=== PATIENT | male | born 1955 | race Caucasian/White ===

== ENCOUNTER → 2019-10-06 | Outpatient (CLI) | payer OTHER ==
--- NOTE | 2019-10-06 10:28 | MR ---
EXAMINATION TYPE: MR brain wo/w con DATE OF EXAM: 10/06/2019 COMPARISON: None HISTORY: altered mental status TECHNIQUE: Multiplanar, multisequence images of the brain and brainstem is performed without and with IV contras t, utilizing 11.5 mL intravenous Gadavist . FINDINGS: Multiple foci of abnormal signal are present within the brain including the largest lesion in the left occipital lobe measuring 5.7 x 3.4 x 3.4 cm with mixed signal noted precontrast including areas of increased signal which could be due to some minimal underlying hemorrhage. There is extensi ve enhancement following contrast administration, smaller lesions are present in the left and right p arietal lobes measuring approximately 2.1 cm on the left, 2.1 cm on the right also showing extensive heterogeneous enhancement. There is vasogenic edema present associated with all 3 lesions. Mass effec t is present on the left lateral ventricle. There is mild midline shift present from left to right. Some mucosal disease present within the maxillary sinus. Scattered hyperintensities on inversion valerie very T2-weighted sequences within the white matter, approximately 4-5 lesions are indeterminate. IMPRESSION: Metastatic disease as described. A Yellow level critical message alert has been initiated for Feliz Henriquez MD via the [employer] on 10/06/2019 10:25 AM. This message alert has been sent to Feliz Henriquez MD via t he preferences provided by the clinician for the receipt of Radiology Critical Findings. Message ID [id number].
== END | disposition home or self-care (01) ==
LOC: RADMRIMAIN 08:32
PROVIDERS: ATTEND Internal Medicine Hematology & Oncology
DX: C79.31 Secondary malignant neoplasm of brain (principal)
CPT/HCPCS: 70553; A9585

== ENCOUNTER → 2019-10-16 | Outpatient (CLI) | payer OTHER ==
--- NOTE | 2019-10-19 10:36 | PE ---
EXAMINATION TYPE: PET CT fusion skull to thigh DATE OF EXAM: 10/16/2019 COMPARISON: NONE HISTORY: Melanoma initial staging study diagnosed on collarbone biopsy in 2014. Recent abnormal jd e with suspected brain metastatic lesion. TECHNIQUE: Following the intravenous administration of 11.84 mCi of F-18 FDG, whole body images are performed from the top of skull to the bottom of feet. Images are reviewed on the computer in the co pramod, axial, and sagittal planes. Reconstructed rotating images are created on independent workstat ion and reviewed on the computer. A noncontrast CT is performed in conjunction with the PET scan. SCAN: Subsequent Scan FINDINGS: HEAD AND NECK: Areas of diminished uptake left parietal and occipital levels presumed correspond to areas of metastatic neoplasm due to vasogenic edema. No suspicious hypermetabolic soft tissue nodules in the scalp or neck identified. CHEST, MEDIASTINUM, AND HILAR REGION: No areas of suspicious hypermetabolic uptake in the thorax with particular attention to the clavicles and supraclavicular region. ABDOMEN AND PELVIS: Normal excretion is present. There is focus of abnormal hypermetabolic uptake in the left groin but this corresponds to moderate size left inguinal hernia containing portion of bladd er or diverticulum with some dependent bladder calculi. No additional areas of suspicious hypermetabo lic uptake. OSSEOUS STRUCTURES: No areas of suspicious hypermetabolic uptake. EXTREMITIES: No areas of suspicious hypermetabolic uptake. OTHER CT: Additional areas of hypodensity or vasogenic edema on CT less well seen on pet imaging bett er seen on recent MRI. There is right internal jugular Mediport catheter terminating in right internal jugular vein before b rachiocephalic confluence. Heart size upper limits of normal. Surgical changes anterior right abdominal wall axial image 238 are present. There is equal filled pro minent sigmoid colon near the suspected sutures axial image 256. No normal appearing left ureter chacon sverse colon. No suspicious small bowel dilatation. Metallic artifact from bilateral hip arthroplasty causes streak artifact limiting evaluation of pelvi c structures. There is additional metallic hardware from left knee arthroplasty causing streak artifa ct. Asymmetric atrophy of posterior medial left mid to lower femoral muscle extending to level of kne e joint. IMPRESSION: No suspicious hypermetabolic lesions to suggest additional areas of metastatic melanoma i nvolvement outside of the lesions seen in brain best visualized on recent brain MRI.
== END | disposition home or self-care (01) ==
LOC: RADPETMAIN 15:09
PROVIDERS: ATTEND Internal Medicine Hematology & Oncology
DX: C43.8 Malignant melanoma of overlapping sites of skin (principal)
CPT/HCPCS: 78815; A9552

== ENCOUNTER 2019-11-17 12:28 | Emergency (ER) | payer OTHER ==
[2019-11-17 12:31] LABS: Glucose,Whole Blood 104 mg/dL (75-99)
[2019-11-17] MEDS ORDERED: SODIUM CHLORIDE 0.9% 500 ML 500 ML IV STA (12:35)
--- NOTE | 2019-11-17 12:54 | ED ---
General Adult HPI - General Chief complaint: Altered Mental Status Stated complaint: Altered mental status Time Seen by Provider: 11/17/19 12:30 Source: patient, family, RN notes reviewed, old records reviewed Mode of arrival: wheelchair Limitations: altered mental status - History of Present Illness Initial comments: This is a 64-year-old male who presents emergency department after having passed out in the MRI waiting room. 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 Patient also has a history of a significant GI bleed about 2 or 3 weeks ago. states on Saturday he started having some altered status and a progressive throughout the week and today he was here to get another MRI of his brain and he passed out in the waiting room. Patient currently is only able to follow some simple commands so is not getting any further history. Patient's states that he was significantly confused this morning when he woke up but she wanted to get the MRI done so she brought him in to be evaluated. states that the patient does appear considerably more pale than normal. Patient recently stopped steroids according to the she believes it was on Saturday when he stopped - Related Data Home Medications Medication Instructions Recorded Confirmed Dexamethasone 2 mg PO BID 10/22/19 11/17/19 Pantoprazole Sodium [Protonix] 40 mg PO DAILY 11/17/19 11/17/19 Allergies Allergy/AdvReac Type Severity Reaction Status Date / Time No Known Allergies Allergy Verified 11/17/19 13:54 Review of Systems ROS Statement: Those systems with pertinent positive or pertinent negative responses have been documented in the HPI. ROS Other: All systems not noted in ROS Statement are negative. Past Medical History Past Medical History: Cancer, Hypertension, Osteoarthritis (OA) Additional Past Medical History / Comment(s): Melanoma, hx perforated bowel from chemo tx. Tumors to brain currently and is recieving radiation History of Any Multi-Drug Resistant Organisms: None Reported Past Surgical History: Bowel Resection, Hernia Repair, Joint Replacement Additional Past Surgical History / Comment(s): colostomy/later removed, inguinal and incisional hernia repair, left hip replacement, left knee replacement, ANTERIOR TOTAL RIGHT HIP Past Anesthesia/Blood Transfusion Reactions: No Reported Reaction Additional Past Anesthesia/Blood Transfusion Reaction / Comment(s): severe constipation post op Past Psychological History: No Psychological Hx Reported Smoking Status: Never smoker Past Alcohol Use History: None Reported Past Drug Use History: None Reported - Past Family History Mother Family Medical History: Dementia (Mother is 91-year-old with history of vascular dementia.) Father Family Medical History: CVA/TIA (Father at age of 88 from CVA and history of Parkinson disease.) Brother(s) Family Medical History: No Reported History (Patient and 2 brothers one of them in 1989 from AIDS the other one is okay.) Sister(s) Family Medical History: GI Bleed (Patient had 2 sisters one from colitis at the other one is okay.) Son(s) Family Medical History: No Reported History (Patient has 2 sons no major medical problems.) Daughter(s) Family Medical History: No Reported History (One daughter no major medical problems.) General Exam - General Exam Comments Initial Comments: GENERAL: Patient is well-developed and well-nourished. Patient is nontoxic and well- hydrated and is easily arousable with verbal but he does not follow all simple commands.. ENT: Neck is soft and supple. No significant lymphadenopathy is noted. Oropharynx is clear. Moist mucous membranes. Neck has full range of motion without eliciting any pain. EYES: The sclera were anicteric and conjunctiva were pink and moist. Extraocular movements were intact and pupils were equal round PULMONARY: Unlabored respirations. Good breath sounds bilaterally. No audible rales rhonchi or wheezing was noted. CARDIOVASCULAR: There is a regular rate and rhythm without any murmurs gallops or rubs. ABDOMEN: Soft and nontender with normal bowel sounds. SKIN: Patient's skin is very pale NEUROLOGIC: Patient is alert and oriented 1. Unable to assess the rest of the neurologic exam because patient cannot follow simple commands MUSCULOSKELETAL: Normal extremities with adequate strength and full range of motion. No lower extremity swelling or edema. No calf tenderness. LYMPHATICS: No significant lymphadenopathy is noted PSYCHIATRIC: Unable to assess Limitations: altered mental status Course Vital Signs 11/17/19 12:30 Pulse Rate 63 Respiratory 18 Rate Blood Pressure 117/66 O2 Sat by Pulse 99 Oximetry Medical Decision Making - Medical Decision Making EKG shows normal sinus rhythm at 63 bpm AK interval 144 care 76 QT interval 418 QTC is 427. Patient's EKG shows no ST segment elevation or depression. CT of the brain shows progression and degree of the vasogenic edema and size of the multiple intracranial bilateral metastatic foci in comparison to the CAT scan of 10/22/2019 there is now progression of left to right midline shift self all seen herniation of 8 mm obscuration of the left sub-cellar cisterns concerning for early uncal herniation and concern for transtentorial early herniation I spoke with Dr. Henriquez and the radiology oncologist and they wanted the patient transferred to [facility]. I spoke with the [facility] and they accepted the patient's transfer. I did give the patient mannitol and Decadron in the emergency department. - Lab Data Result diagrams: 11/17/19 12:33 11/17/19 12:33 Lab Results 11/17/19 11/17/19 11/17/19 Range/Units 12:30 12:33 12:33 WBC 15.2 H (3.8-10.6) k/uL RBC 3.00 L (4.30-5.90) m/uL Hgb 8.7 L (13.0-17.5) gm/dL Hct 26.4 L (39.0-53.0) % MCV 87.9 (80.0-100.0) fL MCH 28.9 (25.0-35.0) pg MCHC 32.9 (31.0-37.0) g/dL RDW 19.8 H (11.5-15.5) % Plt Count 486 H D (150-450) k/uL Neutrophils % 76 % Lymphocytes % 16 % Monocytes % 5 % Eosinophils % 0 % Basophils % 0 % Neutrophils # 11.6 H (1.3-7.7) k/uL Lymphocytes # 2.4 (1.0-4.8) k/uL Monocytes # 0.8 (0-1.0) k/uL Eosinophils # 0.1 (0-0.7) k/uL Basophils # 0.0 (0-0.2) k/uL Manual Slide Review Performed Polychromasia Present Hypochromasia Slight Hyperchromasia Slight Poikilocytosis Marked Anisocytosis Slight PT 9.9 (9.0-12.0) sec INR 0.9 (<1.2) APTT 22.1 (22.0-30.0) sec Sodium (137-145) mmol/L Potassium (3.5-5.1) mmol/L Chloride (98-107) mmol/L Carbon Dioxide (22-30) mmol/L Anion Gap mmol/L BUN (9-20) mg/dL Creatinine (0.66-1.25) mg/dL Est GFR (CKD-EPI)AfAm (>60 ml/min/1.73 sqM) Est GFR (CKD-EPI)NonAf (>60 ml/min/1.73 sqM) Glucose (74-99) mg/dL POC Glucose (mg/dL) 104 H (75-99) mg/dL POC Glu Hide Dropper ID Bowling, Mireille Calcium (8.4-10.2) mg/dL Total Bilirubin (0.2-1.3) mg/dL AST (17-59) U/L ALT (4-49) U/L Alkaline Phosphatase (38-126) U/L Troponin I (0.000-0.034) ng/mL Total Protein (6.3-8.2) g/dL Albumin (3.5-5.0) g/dL 11/17/19 11/17/19 Range/Units 12:33 12:33 WBC (3.8-10.6) k/uL RBC (4.30-5.90) m/uL Hgb (13.0-17.5) gm/dL Hct (39.0-53.0) % MCV (80.0-100.0) fL MCH (25.0-35.0) pg MCHC (31.0-37.0) g/dL RDW (11.5-15.5) % Plt Count (150-450) k/uL Neutrophils % % Lymphocytes % % Monocytes % % Eosinophils % % Basophils % % Neutrophils # (1.3-7.7) k/uL Lymphocytes # (1.0-4.8) k/uL Monocytes # (0-1.0) k/uL Eosinophils # (0-0.7) k/uL Basophils # (0-0.2) k/uL Manual Slide Review Polychromasia Hypochromasia Hyperchromasia Poikilocytosis Anisocytosis PT (9.0-12.0) sec INR (<1.2) APTT (22.0-30.0) sec Sodium 130 L (137-145) mmol/L Potassium 4.2 (3.5-5.1) mmol/L Chloride 100 (98-107) mmol/L Carbon Dioxide 22 (22-30) mmol/L Anion Gap 8 mmol/L BUN 10 (9-20) mg/dL Creatinine 0.80 (0.66-1.25) mg/dL Est GFR (CKD-EPI)AfAm >90 (>60 ml/min/1.73 sqM) Est GFR (CKD-EPI)NonAf >90 (>60 ml/min/1.73 sqM) Glucose 94 (74-99) mg/dL POC Glucose (mg/dL) (75-99) mg/dL POC Glu Hide Dropper ID Calcium 8.7 (8.4-10.2) mg/dL Total Bilirubin 0.7 (0.2-1.3) mg/dL AST 26 (17-59) U/L ALT 18 (4-49) U/L Alkaline Phosphatase 51 (38-126) U/L Troponin I <0.012 (0.000-0.034) ng/mL Total Protein 5.9 L (6.3-8.2) g/dL Albumin 3.1 L (3.5-5.0) g/dL Critical Care Time Critical Care Time: Yes Total Critical Care Time: 35 Disposition Clinical Impression: 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 Specs Out of Hospital Transfer - Requested Specifics: Other Emergency Center ([facility])
--- NOTE | 2019-11-17 13:09 | CT ---
EXAMINATION TYPE: CT brain wo con DATE OF EXAM: 11/17/2019 COMPARISON: 10/22/2019 CT brain HISTORY: Code Stroke. Neurologic deficits. Known intracranial metastasis. Melanoma. CT DLP: 1131.4 mGycm Automated exposure control for dose reduction was used. TECHNIQUE: CT scan of the head is performed without contrast. FINDINGS increase in size of the inferior margin of a left occipital lobe hypodensity either hemorrha gic intracranial metastatic mass versus hyperdense mass from the melanin deposition. This previousl y measured 2.2 cm and now measures approximately 3.2 cm. The midportion and cranial extent appears si milar to the prior. There is pronounced surrounding vasogenic edema with mass effect on the posterior horn of the left lateral ventricle. An additional intracranial metastasis is seen at the left application infrastructure engineer ior frontal blue-white matter junction that is more pronounced than on the prior exam measuring 1.4 x 1.5 cm, not well seen on the prior. This creates pronounced vasogenic edema and results in left to r ight midline shift of 8 mm. There is also vasogenic edema in the right parietal lobe with ill-defined mass measuring approximatel y 1.6 x 1.4 cm on series 201 image 40. Cerebral edema is seen throughout with sulcal effacement. Ther e is relative sparing of the right frontal lobe and temporal lobe. There is some effacement of the beavers prasellar cistern particularly on the left as well as of the quadrigeminal cistern. Calvarium is intact and paranasal sinuses as well as the mastoid air cells are well aerated. IMPRESSION: Progression in degree of vasogenic edema and size of the multiple intracranial bilateral metastatic f oci in comparison to the prior of 10/22/2019. There is now progressive left to right midline shift (sub falcine herniation of 8 mm), obscuration of the left suprasellar cistern concerning for early uncal h erniation, and slight obscuration of the left quadrigeminal cistern concerning for transtentorial ear ly herniation. No tonsillar herniation is seen of the cerebellar tonsils at this time. Hyperdensity o f the intracranial metastasis is presumed to be on the basis of melanin deposition rather than intrat umoral hemorrhage as this is similar to the prior CT of 10/22/2019. Findings were discussed with Dr. Brush by Dr. Rebollar at 1305 pm on 11/17/19.
[2019-11-17] MEDS ORDERED: DEXAMETHASONE SOD PHOSPHATE 10 MG/ML 1 ML VIAL IV STA (13:15)
[2019-11-17 13:22] LABS: ALT 18 U/L (4-49); AST 26 U/L (17-59); African American GFR (CKD) >90 (>60 ml/min/1.73 sqM); Albumin 3.1 g/dL (3.5-5.0); Alkaline Phosphatase 51 U/L (38-126); Anion Gap 8 mmol/L; Blood Urea Nitrogen 10 mg/dL (9-20); Calcium 8.7 mg/dL (8.4-10.2); Carbon Dioxide 22 mmol/L (22-30); Chloride 100 mmol/L (98-107); Glucose 94 mg/dL (74-99); INR 0.9 (<1.2); Non-African American GFR(CKD) >90 (>60 ml/min/1.73 sqM); Partial Thromboplastin Time 22.1 sec (22.0-30.0); Potassium 4.2 mmol/L (3.5-5.1); Prothrombin Time 9.9 sec (9.0-12.0); Sodium 130 mmol/L (137-145); Total Bilirubin 0.7 mg/dL (0.2-1.3); Total Protein 5.9 g/dL (6.3-8.2)
--- NOTE | 2019-11-17 13:29 | XR ---
EXAMINATION TYPE: XR chest 1V DATE OF EXAM: 11/17/2019 COMPARISON: 10/22/2019 HISTORY: Altered mental status TECHNIQUE: Single frontal view of the chest is obtained. FINDINGS: Mediport catheter and cardiomegaly noted with subsegmental changes at the left lung base. No overt failure. Arthropathy of the shoulders. Underlying COPD suspected. Mediport catheter stable i n appearance tip near the level of the subclavian SVC junction. IMPRESSION: 1. Basilar atelectasis or early infiltrate correlate clinically.
[2019-11-17 13:31] LABS: Anisocytosis Slight; Basophils % (A) 0 %; Eosinophils # (A) 0.1 k/uL (0-0.7); Eosinophils % (A) 0 %; HCT 26.4 % (39.0-53.0); HGB 8.7 gm/dL (13.0-17.5); Hyperchromasia Slight; Hypochromasia Slight; Lymphocytes # (A) 2.4 k/uL (1.0-4.8); Lymphocytes % (A) 16 %; MCH 28.9 pg (25.0-35.0); MCHC 32.9 g/dL (31.0-37.0); MCV 87.9 fL (80.0-100.0); Mean Platelet Volume 7.1; Monocytes # (A) 0.8 k/uL (0-1.0); Monocytes % (A) 5 %; Neutrophils # (A) 11.6 k/uL (1.3-7.7); Neutrophils % (A) 76 %; Poikilocytosis Marked; RDW 19.8 % (11.5-15.5); WBC 15.2 k/uL (3.8-10.6)
[2019-11-17 13:32] LABS: Platelet Count 486 k/uL (150-450)
[2019-11-17] MEDS ORDERED: SALINE IV ONE (13:54)
[2019-11-17] MEDS ORDERED: MANNITOL IV ONE (13:54)
[2019-11-17 13:58] LABS: Polychromasia Present
[2019-11-17] MEDS ORDERED: MANNITOL 20% IV ONE (14:00)
[2019-11-17 15:31] VITALS: BP 117/64; PULSE 66; RESP 16
== END 2019-11-17 15:51 | disposition short-term general hospital (02) ==
LOC: EC 12:28
DX: C79.31 Secondary malignant neoplasm of brain (principal); C43.9 Malignant melanoma of skin, unspecified; M19.90 Unspecified osteoarthritis, unspecified site; Z92.21 Personal history of antineoplastic chemotherapy; Z92.3 Personal history of irradiation; Z79.52 Long term (current) use of systemic steroids; Z79.899 Other long term (current) drug therapy; Z87.19 Personal history of other diseases of the digestive system; Z96.642 Presence of left artificial hip joint; Z96.652 Presence of left artificial knee joint; Z82.3 Family history of stroke; Z81.8 Family history of other mental and behavioral disorders
CPT/HCPCS: 36415; 93005; 80053; 84484; 85025; 85610; 85730; 71045; 70450; 99291; 96365; 96375; 96361 ×2; J1100

== ENCOUNTER → 2019-11-17 | Outpatient (CLI) | payer OTHER | END | disposition home or self-care (01) | LOC: RADCTMAIN 11:49 | PROVIDERS: ATTEND Internal Medicine Hematology & Oncology | DX: Z53.9 Procedure and treatment not carried out, unspecified reason (principal) ==

== ENCOUNTER → 2019-12-17 | Outpatient (CLI) | payer OTHER ==
--- NOTE | 2019-12-17 11:43 | MR ---
EXAMINATION TYPE: MR brain wo/w con DATE OF EXAM: 12/17/2019 COMPARISON: CT brain dated 11/17/2019 and MRI brain dated 10/06/2019. HISTORY: Ca, Post radiation treatment f/u. Melanoma. TECHNIQUE: Multiplanar, multisequence images of the brain and brainstem is performed without and with IV contras t, utilizing 10 mL intravenous Gadavist . FINDINGS: There is redemonstration of 3 intracranial metastatic lesions. The largest lesion in the le ft occipital lobe and another lesion in the left parietal lobe demonstrate areas of restricted diffus ion and T1 hyperintense precontrast intratumoral hemorrhage or melanin deposition. Another right pamela etal lobe lesion also demonstrates intratumoral hemorrhage. No additional areas of restricted diffusi on to indicate acute infarct in the cerebellum or cerebral hemispheres. The largest mixed signal left occipital lobe lesion previously measured 5.7 x 3.4 x 3.4 cm on the MRI dated 10/06/2019 and currently measures 4.6 x 3.2 x 2.7 cm. The degree of surrounding vasogenic edema however has slightly progressed. The left parietal lobe lesion previously measured 2.1 cm and one measured in a similar fashion curren tly measures 1.8 cm. The right parietal lobe lesion also measured 2.1 cm on the prior and one measure d in similar fashion currently measures 1.5 cm. The degree of vasogenic edema surrounding these tomás s is similar to the prior. There is a punctate focus of enhancement in the left frontal lobe measurin g 2 mm near the skull vertex on postcontrast T1 nonfat sat axial image 71 that is better defined on t bridget's examination than the prior. No surrounding vasogenic edema. There is a 3 mm left to rightward midline shift, improved from the prior CT of 11/17/2019 were this oc sured 8 mm. There are a few scattered foci of T2/FLAIR hyperintensity in the deep white matter withou t abnormal enhancement, most commonly on the basis of chronic microangiopathy. There is effacement of the posterior horn of the left lateral ventricle and slightly smaller size of the anterior horn of t he left lateral ventricle. Mild mucosal thickening of the maxillary sinuses and ethmoid sinuses as well as of the frontal sinuse s. Sphenoid sinuses and mastoid air cells appear well aerated. Medial course of the left optic nerve is unchanged from the prior and likely congenital. Mastoid air cells appear well aerated. IMPRESSION: 1. Response to treatment. Smaller size of the 3 known intracranial metastatic lesions with slight inc reased vasogenic edema surrounding the largest mass and stable vasogenic edema surrounding the additi onal 2 masses. There is a punctate abnormal focus of enhancement relating to a fourth site of intracr anial metastasis measuring only 2 mm of the left frontal lobe with no current surrounding vasogenic e [place]. This is unchanged from the prior in size although better seen on today's exam. 2. Improved degree of left to right midline shift/subfalcine herniation in comparison to the prior CT of 11/17/2019 (now only 3 mm as opposed to 8 mm on the prior).
== END | disposition home or self-care (01) ==
LOC: RADMRIMAIN 10:05
PROVIDERS: ATTEND Radiology Radiation Oncology
DX: C79.31 Secondary malignant neoplasm of brain (principal); C43.62 Malignant melanoma of left upper limb, including shoulder
CPT/HCPCS: 70553; A9585

== ENCOUNTER 2020-01-11 19:31 | Inpatient (IN) | payer OTHER ==
[2020-01-11] MEDS ORDERED: SODIUM CHLORIDE 0.9% 500 ML 500 ML IV STA (19:43)
--- NOTE | 2020-01-11 19:44 | ED ---
Recheck HPI - General Stated Complaint: Abn Ct sent by dr Mukherjee Seen by Provider: 01/11/20 19:42 Source: RN notes reviewed, old records reviewed Limitations: no limitations - History of Present Illness Initial Comments: This is a 64-year-old male presents today for evaluation of abnormal outpatient studies. Patient's computed tomography scan of his chest 7 pelvis to follow-up for cancer progression was found to have bilateral PEs on outpatient scan, patient's doctor did call prior to arrival and I was made aware of these findings. Patient himself denies any significant distress now states she was at home feeling finally got the call he is complaining of leg swelling lately denying any headaches nausea or vomiting he does deny any fevers but does have occasional shortness of breath especially with exertion Complaint: abnormal lab (abnomal outpatient CT) -: hour(s) Returns Today for: Called Because of Abnormal Lab/Test (CT fournier of chest) Symptoms Since Prior Visit: no new symptoms Context: called for abnormal lab result (CT scan) - Related Data Home Medications Medication Instructions Recorded Confirmed Dexamethasone 4 mg PO QAM 10/22/19 01/11/20 Pantoprazole Sodium [Protonix] 40 mg PO BID 11/17/19 01/11/20 Dexamethasone 2 mg PO HS 01/11/20 01/11/20 levETIRAcetam 1,000 mg PO BID 01/11/20 01/11/20 Allergies Allergy/AdvReac Type Severity Reaction Status Date / Time No Known Allergies Allergy Verified 01/11/20 22:21 Review of Systems ROS Statement: Those systems with pertinent positive or pertinent negative responses have been documented in the HPI. ROS Other: All systems not noted in ROS Statement are negative. Past Medical History Past Medical History: Cancer, Hypertension, Osteoarthritis (OA) Additional Past Medical History / Comment(s): Melanoma, hx perforated bowel from chemo tx. Tumors to brain currently and is recieving radiation History of Any Multi-Drug Resistant Organisms: None Reported Past Surgical History: Bowel Resection, Hernia Repair, Joint Replacement Additional Past Surgical History / Comment(s): colostomy/later removed, inguinal and incisional hernia repair, left hip replacement, left knee replacement, ANTERIOR TOTAL RIGHT HIP Past Anesthesia/Blood Transfusion Reactions: No Reported Reaction Additional Past Anesthesia/Blood Transfusion Reaction / Comment(s): severe constipation post op Past Psychological History: No Psychological Hx Reported Smoking Status: Never smoker Past Alcohol Use History: None Reported Past Drug Use History: None Reported - Past Family History Mother Family Medical History: Dementia (Mother is 91-year-old with history of vascular dementia.) Father Family Medical History: CVA/TIA (Father at age of 88 from CVA and history of Parkinson disease.) Brother(s) Family Medical History: No Reported History (Patient and 2 brothers one of them in 1989 from AIDS the other one is okay.) Sister(s) Family Medical History: GI Bleed (Patient had 2 sisters one from colitis at the other one is okay.) Son(s) Family Medical History: No Reported History (Patient has 2 sons no major medical problems.) Daughter(s) Family Medical History: No Reported History (One daughter no major medical problems.) General Exam General appearance: alert, in no apparent distress Head exam: Present: atraumatic, normocephalic, normal inspection Eye exam: Present: normal appearance, PERRL, EOMI. Absent: scleral icterus, conjunctival injection, periorbital swelling ENT exam: Present: normal exam, mucous membranes moist Neck exam: Present: normal inspection. Absent: tenderness, meningismus, lymphadenopathy Respiratory exam: Present: normal lung sounds bilaterally. Absent: respiratory distress, wheezes, rales, rhonchi, stridor Cardiovascular Exam: Present: regular rate, normal rhythm, normal heart sounds. Absent: systolic murmur, diastolic murmur, rubs, gallop, clicks GI/Abdominal exam: Present: soft, normal bowel sounds. Absent: distended, tenderness, guarding, rebound, rigid Extremities exam: Present: normal inspection, full ROM, normal capillary refill, pedal edema, calf tenderness. Absent: tenderness, joint swelling Back exam: Present: normal inspection Neurological exam: Present: alert, oriented X3, CN II-XII intact Psychiatric exam: Present: normal affect, normal mood Skin exam: Present: warm, dry, intact, normal color. Absent: rash Course Vital Signs 01/11/20 01/11/20 01/11/20 19:45 21:21 22:54 Temperature 98.2 F 97.6 F 97.5 F L Pulse Rate 70 58 L 54 L Respiratory 18 17 16 Rate Blood Pressure 124/72 123/56 128/68 O2 Sat by Pulse 99 99 98 Oximetry - Reevaluation(s) Reevaluation #1: Medical record and outpatient computed tomography scan are reviewed Patient does admit to shortness of breath and pain bilaterally pain and swelling as well Patient denying any current chest pain - Consultations Consultation #1: Spoke with Dr. Jalloh who agrees for patient admission Medical Decision Making - Medical Decision Making 64 male DF bilateral PEs on computed tomography scan, patient has bilateral lower extremity DVTs Jacoby patient on anticoagulation admits a for for further ultrasound and echo of heart - Lab Data Result diagrams: 01/16/20 05:57 01/16/20 05:57 Lab Results 01/11/20 01/11/20 01/11/20 Range/Units 20:17 20:17 20:17 PT 10.3 (9.0-12.0) sec INR 1.0 (<1.2) APTT 18.9 L (22.0-30.0) sec D-Dimer 5.95 H (<0.60) mg/L FEU Sodium 130 L (137-145) mmol/L Potassium 4.7 (3.5-5.1) mmol/L Chloride 98 (98-107) mmol/L Carbon Dioxide 23 (22-30) mmol/L Anion Gap 9 mmol/L BUN 24 H (9-20) mg/dL Creatinine 0.73 (0.66-1.25) mg/dL Est GFR (CKD-EPI)AfAm >90 (>60 ml/min/1.73 sqM) Est GFR (CKD-EPI)NonAf >90 (>60 ml/min/1.73 sqM) Glucose 138 H (74-99) mg/dL Calcium 8.6 (8.4-10.2) mg/dL Magnesium 2.0 (1.6-2.3) mg/dL Total Bilirubin 0.3 (0.2-1.3) mg/dL AST 26 (17-59) U/L ALT 20 (4-49) U/L Alkaline Phosphatase 39 (38-126) U/L Troponin I <0.012 (0.000-0.034) ng/mL NT-Pro-B Natriuret Pep pg/mL Total Protein 5.8 L (6.3-8.2) g/dL Albumin 3.4 L (3.5-5.0) g/dL Coronavirus (PCR) (Not Detectd) 01/11/20 01/11/20 Range/Units 20:17 22:05 PT (9.0-12.0) sec INR (<1.2) APTT (22.0-30.0) sec D-Dimer (<0.60) mg/L FEU Sodium (137-145) mmol/L Potassium (3.5-5.1) mmol/L Chloride (98-107) mmol/L Carbon Dioxide (22-30) mmol/L Anion Gap mmol/L BUN (9-20) mg/dL Creatinine (0.66-1.25) mg/dL Est GFR (CKD-EPI)AfAm (>60 ml/min/1.73 sqM) Est GFR (CKD-EPI)NonAf (>60 ml/min/1.73 sqM) Glucose (74-99) mg/dL Calcium (8.4-10.2) mg/dL Magnesium (1.6-2.3) mg/dL Total Bilirubin (0.2-1.3) mg/dL AST (17-59) U/L ALT (4-49) U/L Alkaline Phosphatase (38-126) U/L Troponin I (0.000-0.034) ng/mL NT-Pro-B Natriuret Pep 337 pg/mL Total Protein (6.3-8.2) g/dL Albumin (3.5-5.0) g/dL Coronavirus (PCR) Not Detected (Not Detectd) - EKG Data -: EKG Interpreted by Me (EKG shows sinus rhythm of 61, VA 132, QRS 82, QTC 414) - Radiology Data Radiology results: report reviewed (Computed tomography scan of chest ilateral PE) Critical Care Time Critical Care Time: Yes Total Critical Care Time: 31 Disposition Clinical Impression: Bilateral pulmonary embolism, DVT, bilateral lower limbs Disposition: ADMITTED IP TO THIS [facility] Condition: Good Is patient prescribed a controlled substance at d/c from ED?: No
[2020-01-11 20:34] LABS: ALT 20 U/L (4-49); AST 26 U/L (17-59); African American GFR (CKD) >90 (>60 ml/min/1.73 sqM); Albumin 3.4 g/dL (3.5-5.0); Alkaline Phosphatase 39 U/L (38-126); Anion Gap 9 mmol/L; Blood Urea Nitrogen 24 mg/dL (9-20); Calcium 8.6 mg/dL (8.4-10.2); Carbon Dioxide 23 mmol/L (22-30); Chloride 98 mmol/L (98-107); Glucose 138 mg/dL (74-99); Non-African American GFR(CKD) >90 (>60 ml/min/1.73 sqM); Potassium 4.7 mmol/L (3.5-5.1); Sodium 130 mmol/L (137-145); Total Bilirubin 0.3 mg/dL (0.2-1.3); Total Protein 5.8 g/dL (6.3-8.2)
[2020-01-11 20:55] LABS: Prothrombin Time 10.3 sec (9.0-12.0)
[2020-01-11 21:00] LABS: D-Dimer 5.95 mg/L FEU (<0.60); Partial Thromboplastin Time 18.9 sec (22.0-30.0)
[2020-01-11] MEDS ORDERED: APIXABAN 5 MG TAB PO STA (21:07)
--- NOTE | 2020-01-11 21:23 | US ---
EXAMINATION TYPE: US venous doppler duplex LE DATE OF EXAM: 01/11/2020 9:09 PM COMPARISON: US 2013 & 2011 CLINICAL HISTORY: DVT. PE, left leg swelling SIDE PERFORMED: Bilateral TECHNIQUE: The lower extremity deep venous system is examined utilizing real time linear array sonog sandra with graded compression, doppler sonography and color-flow sonography. VESSELS IMAGED: External Iliac Vein (EIV) Common Femoral Vein Deep Femoral Vein Greater Saphenous Vein * Femoral Vein Popliteal Vein Small Saphenous Vein * Proximal Calf Veins (* superficial vessels) Right Leg: Positive for DVT popliteal vein Left Leg: Positive for DVT from CFV through proximal calf veins IMPRESSION: There is bilateral leg acute deep vein thrombosis as above.
[2020-01-11] MEDS ORDERED: HEPARIN SODIUM,PORCINE 10,000 UNIT/ML 1 ML VIAL IV ONE (21:42)
[2020-01-11] MEDS ORDERED: HEPARIN SODIUM,PORCINE 5,000 UNIT/ML 1 ML VIAL IV PRN (21:42)
[2020-01-11] MEDS: HEPARIN SOD,PORK IN 0.45% NACL 25,000 UNIT in 0.45% NACL 1 250ML.BAG IV SCH (22:07)
[2020-01-11] MEDS ORDERED: NITROGLYCERIN SL TABS 0.4 MG TAB SUBLINGUAL PRN (22:08)
[2020-01-11] MEDS ORDERED: MORPHINE SULFATE 4 MG/ML SYRINGE IV PRN (22:08)
[2020-01-11 22:35] LABS: Anisocytosis Slight; Basophils % (A) 0 %; Eosinophils % (A) 0 %; HCT 29.1 % (39.0-53.0); HGB 9.5 gm/dL (13.0-17.5); Hypochromasia Marked; Lymphocytes # (A) 1.2 k/uL (1.0-4.8); Lymphocytes % (A) 11 %; MCH 26.2 pg (25.0-35.0); MCHC 32.7 g/dL (31.0-37.0); Microcytosis Slight; Monocytes # (A) 0.6 k/uL (0-1.0); Monocytes % (A) 5 %; Neutrophils % (A) 82 %; Platelet Count 212 k/uL (150-450); Poikilocytosis Marked; RBC 3.63 m/uL (4.30-5.90); RDW 17.6 % (11.5-15.5)
[2020-01-11 22:37] LABS: MCV 80.1 fL (80.0-100.0)
[2020-01-12] MEDS: SODIUM CHLORIDE 0.9% 1,000 ML IV SCH ×3 (00:29→20:01)
[2020-01-12 07:39] LABS: Anisocytosis Slight; Basophils % (A) 0 %; Eosinophils % (A) 0 %; HCT 23.6 % (39.0-53.0); Hypochromasia Marked; Lymphocytes # (A) 1.9 k/uL (1.0-4.8); Lymphocytes % (A) 23 %; MCH 24.6 pg (25.0-35.0); MCV 82.2 fL (80.0-100.0); Mean Platelet Volume 7.8; Microcytosis Slight; Monocytes # (A) 0.5 k/uL (0-1.0); Monocytes % (A) 6 %; Neutrophils # (A) 5.7 k/uL (1.3-7.7); Neutrophils % (A) 68 %; Platelet Count 142 k/uL (150-450); Poikilocytosis Moderate; RBC 2.87 m/uL (4.30-5.90); RDW 17.9 % (11.5-15.5); WBC 8.3 k/uL (3.8-10.6)
[2020-01-12 07:47] LABS: HGB 7.1 gm/dL (13.0-17.5)
[2020-01-12 07:54] LABS: INR 1.2 (<1.2); Prothrombin Time 11.7 sec (9.0-12.0)
[2020-01-12 08:04] LABS: Cholesterol 185 mg/dL (<200); HDL Cholesterol 60 mg/dL (40-60); LDL Cholesterol,Calculated 106 mg/dL (0-99); Triglycerides 94 mg/dL (<150)
[2020-01-12] MEDS: ASPIRIN 325 MG TAB PO SCH (09:56)
[2020-01-12] MEDS: levETIRAcetam 500 MG TAB PO SCH ×2 (09:56→20:00)
[2020-01-12] MEDS: PANTOPRAZOLE 40 MG TABLET PO SCH ×2 (09:56→18:41)
--- NOTE | 2020-01-12 10:30 | ECHOF ---
Referral Reason:PE MEASUREMENTS -------- HEIGHT: 182.9 cm WEIGHT: 91.2 kg BP: 140/65 RVIDd: 3.8 cm (< 3.3) IVSd: 1.4 cm (0.6 - 1.1) LVIDd: 4.6 cm (3.9 - 5.3) LVPWd: 1.5 cm (0.6 - 1.1) IVSs: 2.2 cm LVIDs: 2.9 cm LVPWs: 2.2 cm LA Diam: 3.5 cm (2.7 - 3.8) LAESV Index (A-L): 28.39 ml/m Ao Diam: 3.1 cm (2.0 - 3.7) AV Cusp: 2.3 cm (1.5 - 2.6) MV EXCURSION: 20.477 mm (> 18.000) MV EF SLOPE: 79 mm/s (70 - 150) EPSS: 0.3 cm MV E Krishan: 0.95 m/s MV DecT: 268 ms MV A Krishan: 0.81 m/s MV E/A Ratio: 1.16 RAP: 5.00 mmHg RVSP: 30.01 mmHg TAPSE: 28.03 mm FINDINGS -------- Sinus rhythm. This was a technically adequate study. The left ventricular size is normal. There is moderate concentric left ventricular hypertrophy. O verall left ventricular systolic function is normal with, an EF between 60 - 65 %. The right ventricle is mild to moderately enlarged. Normal LA size by volume 22+/-6 ml/m2. The right atrium is normal in size. Lipomatous Hypertrophy of the atrial septum is present The aortic valve is trileaflet and appears structurally normal. The mitral valve is normal. Mild tricuspid regurgitation present. Right ventricular systolic pressure is normal at < 35 mmHg. Trace/mild (physiologic) pulmonic regurgitation. The aortic root size is normal. Normal inferior vena cava with normal inspiratory collapse consistent with estimated right atrial pre ssure of 5 mmHg. There is no pericardial effusion. CONCLUSIONS -------- 1. Sinus rhythm. 2. This was a technically adequate study. 3. The left ventricular size is normal. 4. There is moderate concentric left ventricular hypertrophy. 5. Overall left ventricular systolic function is normal with, an EF between 60 - 65 %. 6. The right ventricle is mild to moderately enlarged. 7. Normal LA size by volume 22+/-6 ml/m2. 8. The right atrium is normal in size. 9. Lipomatous Hypertrophy of the atrial septum is present 10. The aortic valve is trileaflet and appears structurally normal. 11. The mitral valve is normal. 12. Mild tricuspid regurgitation present. 13. Right ventricular systolic pressure is normal at < 35 mmHg. 14. Trace/mild (physiologic) pulmonic regurgitation. 15. The aortic root size is normal. 16. Normal inferior vena cava with normal inspiratory collapse consistent with estimated right atrial pressure of 5 mmHg. 17. There is no pericardial effusion. PRODUCT SAFETY CONSULTANT: Julee Oglesby RDCS
[2020-01-12] MEDS: DEXAMETHASONE 4 MG TAB PO SCH ×2 (12:23→20:01)
[2020-01-12 13:03] LABS: Anisocytosis Slight; Basophils % (A) 0 %; Eosinophils # (A) 0.1 k/uL (0-0.7); Eosinophils % (A) 0 %; HCT 29.6 % (39.0-53.0); Hypochromasia Marked; Lymphocytes % (A) 25 %; MCH 25.3 pg (25.0-35.0); MCHC 30.4 g/dL (31.0-37.0); Mean Platelet Volume 7.7; Monocytes # (A) 0.7 k/uL (0-1.0); Monocytes % (A) 4 %; Neutrophils # (A) 10.8 k/uL (1.3-7.7); Neutrophils % (A) 68 %; Platelet Count 227 k/uL (150-450); Poikilocytosis Moderate; RBC 3.57 m/uL (4.30-5.90); RDW 17.3 % (11.5-15.5); WBC 15.8 k/uL (3.8-10.6)
--- NOTE | 2020-01-12 13:22 | P.HPIM ---
History of Present Illness H&P Date: 01/12/20 This is a 64-year-old male one of Dr. Ramos with a previous medical history significant for melanoma and underwent chemotherapy developed to have a significant ischemic colitis with Clostridium difficile colitis followed by subtotal colectomy with ileostomy placement followed by revision of the ileostomy and was recently diagnosed with metastatic brain lesion for which he underwent radiation therapy that was done by Dr. Jones and completed on October 21. Patient was having outpatient scheduled CAT scan for follow-up ordered by Dr. Henriquez yesterday and found to have no new suspicious mass or adenopathy. Bilateral lower lung pulmonary emboli without evidence of RV strain. Patient wa s then contacted by Dr. Henriquez and instructed to come into the hospital for evaluation. In the emergency center, patient was given eliquis 10 mg 1 dose and started on a heparin drip and then admitted to the cardiac stepdown unit. Consults in place with cardiology and oncology. Patient states he has not had any symptoms. No chest pain, shortness of breath. He denies any recent seizure activity. He is currently using a cane only when he was wheelchair bound recently. He states his balance is much improved and around the house he is no longer using a cane. He denies any memory issues. He has not been on any blood thinners recently. patient was hospitalized in October of this year due to acute syncopal episode and acute GI bleed, status post EGD finding gastritis without active upper GI bleed. Patient had significant bleeding and hypotensive requiring vasopressors. He underwent tagged RBC scan that was inconclusive the decision was to transfer the patient to a tertiary care center at [facility] for possible need for immobilization of the bleeder in the small bowel versus of bleeding at the anastomotic area. The patient has not had any further GI bleed but it was reported by his nurse this morning that he had a large amount of blood rectally. Heparin drip was subsequently held and CBC ordered for this afternoon and morning. Await recommendations from oncology regarding anticoagulation. Ultrasound of bilateral lower extremities positive bilaterally for DVT. Review of Systems Constitutional: No fever, no chills, no night sweats. No weight change. No weakness, fatigue or lethargy. No daytime sleepiness. EENT: No headache. No blurred vision or double vision, no loss of vision. No loss of Hearing, no ringing in the ears, no dizziness. No nasal drainage or congestion. No epistaxis. No sore throat. Lungs: No shortness of breath, cough, no sputum production. No wheezing. Cardiovascular: No chest pain, no lower extremity edema. No palpitations. No paroxysmal nocturnal dyspnea. No orthopnea. No lightheadedness or dizziness. No syncopal episodes. Abdominal: No abdominal pain. No nausea, vomiting. No diarrhea. No constipation. Reports bloody stools. No loss of appetite. Genitourinary: No dysuria, increased frequency, urgency. No urinary retention. Musculoskeletal: No myalgias. No muscle weakness, no gait dysfunction, no frequent falls. No back pain. No neck pain. Integumentary: No wounds, no lesions. No rash or pruritus. No unusual bruising. No change in hair or nails. Neurologic: No aphasia. No facial droop. No change in mentation. No head injury. No headache. No paralysis. No paresthesia. No seizure activity. Psychiatric: No depression. No anxiety. No mood swings. Endocrine: No abnormal blood sugars. No weight change. No excessive sweating or thirst. No cold intolerance. Past Medical History Past Medical History: Cancer, CVA/TIA, Deep Vein Thrombosis (DVT), GI Bleed, Hypertension, Osteoarthritis (OA), Pulmonary Embolus (PE) Additional Past Medical History / Comment(s): Melanoma, hx perforated bowel from chemo tx. Tumors to brain radiation treatments finished History of Any Multi-Drug Resistant Organisms: None Reported Past Surgical History: Bowel Resection, Hernia Repair, Joint Replacement Additional Past Surgical History / Comment(s): colostomy/later removed, inguinal and incisional hernia repair, left hip replacement, left knee replacement, ANTERIOR TOTAL RIGHT HIP Past Anesthesia/Blood Transfusion Reactions: No Reported Reaction Additional Past Anesthesia/Blood Transfusion Reaction / Comment(s): severe constipation post op Past Psychological History: No Psychological Hx Reported Smoking Status: Never smoker Past Alcohol Use History: None Reported Past Drug Use History: None Reported - Past Family History Mother Family Medical History: Dementia Additional Family Medical History / Comment(s): Mother is 91-year-old with history of vascular dementia. Father Family Medical History: CVA/TIA Additional Family Medical History / Comment(s): Father at age of 88 from CVA and history of Parkinson disease. Brother(s) Family Medical History: No Reported History Additional Family Medical History / Comment(s): Patient and 2 brothers one of them in 1989 from AIDS the other one is okay. Sister(s) Family Medical History: GI Bleed Additional Family Medical History / Comment(s): Patient had 2 sisters one from colitis at the other one is okay. Son(s) Family Medical History: No Reported History Additional Family Medical History / Comment(s): Patient has 2 sons no major medical problems. Daughter(s) Family Medical History: No Reported History Additional Family Medical History / Comment(s): One daughter no major medical problems. Medications and Allergies Home Medications Medication Instructions Recorded Confirmed Type Dexamethasone 4 mg PO QAM 10/22/19 01/11/20 History Pantoprazole Sodium [Protonix] 40 mg PO BID 11/17/19 01/11/20 History RX: Dexamethasone 2 mg PO HS 01/11/20 01/11/20 History levETIRAcetam 1,000 mg PO BID 01/11/20 01/11/20 History Allergies Allergy/AdvReac Type Severity Reaction Status Date / Time No Known Allergies Allergy Verified 01/11/20 22:21 Physical Exam Vitals: Vital Signs Temp Pulse Pulse Resp BP BP Pulse Ox 01/12/20 03:52 98 F 54 L 16 140/65 100 01/12/20 00:00 98 F 55 L 16 136/70 98 01/11/20 22:54 97.5 F L 54 L 16 128/68 98 01/11/20 21:21 97.6 F 58 L 17 123/56 99 01/11/20 19:45 98.2 F 70 18 124/72 99 Intake and Output 01/11/20 01/12/20 01/12/20 22:59 06:59 14:59 Intake Total 117.056 Output Total 300 Balance -182.944 Intake: Intake, IV Titration 117.056 Amount Heparin Sod,Pork in 0.45% 117.056 NaCl 25,000 unit In 0.45 % NaCl 1 250ml.bag @ 18 UNITS/KG/HR 18.779 mls/hr IV .[id number] [facility] Rx#: [id number] Output: Urine 300 Other: Voiding Method Urinal Weight 104.326 kg 91.5 kg HEENT: Head is atraumatic, normocephalic, pupils were equal round reactive to light and accommodation, extraocular muscle movement intact. Neck: Supple, no JVP. Chest: Decreased breath sounds at the bases, few rhonchi, no expiratory wheezes, no chest wall tenderness, no intercostal retractions. Heart : First heart sound is depressed, second heart sound is normal, there is systolic ejection murmur 2/6 located at left sternal border. Abdomen: Soft, distended, no abdominal tenderness, positive bowel sounds. Multiple scars in the abdomen. Extremities: No edema, no calf tenderness. Neurologic examination: Patient is awake alert and oriented 3, cranial nerves III-12 appear grossly intact. Muscle power 5 out of 5 in upper and lower e xtremities bilaterally. Results CBC & Chem 7: 01/15/20 05:01/13/20 06:34 Labs: Abnormal Lab Results - Last 24 Hours (Table) 01/11/20 01/11/20 01/11/20 Range/Units 20:17 20:17 22:20 WBC 11.0 H (3.8-10.6) k/uL RBC 3.63 L (4.30-5.90) m/uL Hgb 9.5 L (13.0-17.5) gm/dL Hct 29.1 L (39.0-53.0) % MCH (25.0-35.0) pg MCHC (31.0-37.0) g/dL RDW 17.6 H (11.5-15.5) % Plt Count (150-450) k/uL Neutrophils # 9.0 H (1.3-7.7) k/uL INR (<1.2) APTT 18.9 L (22.0-30.0) sec D-Dimer 5.95 H (<0.60) mg/L FEU Sodium 130 L (137-145) mmol/L BUN 24 H (9-20) mg/dL Glucose 138 H (74-99) mg/dL Total Protein 5.8 L (6.3-8.2) g/dL Albumin 3.4 L (3.5-5.0) g/dL LDL Cholesterol, Calc (0-99) mg/dL 01/12/20 01/12/20 01/12/20 Range/Units 03:23 07:17 07:17 WBC (3.8-10.6) k/uL RBC 2.87 L (4.30-5.90) m/uL Hgb 7.1 L D (13.0-17.5) gm/dL Hct 23.6 L (39.0-53.0) % MCH 24.6 L (25.0-35.0) pg MCHC 30.0 L (31.0-37.0) g/dL RDW 17.9 H (11.5-15.5) % Plt Count 142 L (150-450) k/uL Neutrophils # (1.3-7.7) k/uL INR 1.2 H (<1.2) APTT >200.0 H* (22.0-30.0) sec D-Dimer (<0.60) mg/L FEU Sodium (137-145) mmol/L BUN (9-20) mg/dL Glucose (74-99) mg/dL Total Protein (6.3-8.2) g/dL Albumin (3.5-5.0) g/dL LDL Cholesterol, Calc (0-99) mg/dL 01/12/20 Range/Units 07:17 WBC (3.8-10.6) k/uL RBC (4.30-5.90) m/uL Hgb (13.0-17.5) gm/dL Hct (39.0-53.0) % MCH (25.0-35.0) pg MCHC (31.0-37.0) g/dL RDW (11.5-15.5) % Plt Count (150-450) k/uL Neutrophils # (1.3-7.7) k/uL INR (<1.2) APTT (22.0-30.0) sec D-Dimer (<0.60) mg/L FEU Sodium (137-145) mmol/L BUN (9-20) mg/dL Glucose (74-99) mg/dL Total Protein (6.3-8.2) g/dL Albumin (3.5-5.0) g/dL LDL Cholesterol, Calc 106 H (0-99) mg/dL Thrombosis Risk Factor Assmnt - DVT/VTE Prophylaxis DVT/VTE Prophylaxis: Pharmacologic Prophylaxis ordered, Mechanical Prophylaxis ordered - Choose All That Apply Any of the Below Risk Factors Present?: Yes Each Factor Represents 1 point: Obesity (BMI >25), Swollen legs (current) Other Risk Factors: Yes Each Risk Factor Represents 2 Points: Age 61-74 years Other congenital or acquired thrombophilia - If yes, enter type in comment: No Thrombosis Risk Factor Assessment Total Risk Factor Score: 4 Thrombosis Risk Factor Assessment Level: Moderate Risk Assessment and Plan Plan: 1. Acute pulmonary embolism and bilateral lower extremity DVT. Consults in place with cardiology and oncology. Heparin currently on hold due to GI bleed. Echocardiogram has been ordered. 2. History of acute GI bleed and acute blood loss anemia in October 2019, transferred [facility]. 3. Acute rectal bleeding. Hold heparin. Repeat CBC this afternoon and in the morning. Protonix 40 mg twice daily. 4. History of melanoma with metastatic disease post radiation therapy completed in October. Continue Keppra 1000 mg twice daily, dexamethasone 4 mg of the morning and 2 mg at bedtime. 5. GERD with GI prophylaxis continue PPI. 6. Hyperlipidemia. Stable. 7. BPH. Stable. 8. 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 Patient admitted to the hospital for a minimum of 2 night stay. Discharge plan: home Impression and plan of care have been directed as dictated by the signing physician. Nai Souza nurse practitioner acting as scribe for signing willie [email or web address].
[2020-01-12] MEDS: HEPARIN SOD,PORK IN 0.45% NACL 25,000 UNIT in 0.45% NACL 1 250ML.BAG IV SCH ×2 (15:02→19:24)
--- NOTE | 2020-01-12 16:01 | P.CONS ---
History of Present Illness - Reason for Consult Consult date: 01/12/20 Melanoma Requesting physician: Venkat Quintana - History of Present Illness Mr. Calle is a 64-year-old male of Dr. Davis for treatment and surveillance of his known melanoma. In September of 2013 he noted a new lesion above the left collarbone in 09/29 initially. This was rough , raised, and was not associated with any itching or bleeding. He had a shave biopsy by Dr Conley on 10/21/13, revealing a superficial spreading, ulcerated melanoma, 0.6 mm Breslow's thickness, Carter's level III, with the deep margin positive. He had a wide excision with sentinel node biopsy on 11/27/13, which showed no residual melanoma. 1 sentinel node was positive in the subcapsular, trabecular and paratrabecular areas, with < 5% of the surface area involved. He had complete dhara dissection on 01/28/14 with 0/17 nodes involved. He was seen by Dr Arnold and standard adjuvant therapy with high dose Interferon for 1 year or treatment per E 1609 comparing standard IFN to Ipilimumab was discussed with him. He was inclined to have standard IFN locally, and was referred here to establish care. After discussion, he agreed to enroll on E16, and started Yervoy on 04/29/14. 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 He then had wound dehisence, and was in inpt rehab due to severe debility. He was discharged home on 09/08/14. Due to the above grade 4 complications he was taken off the study.He had his ostomy reversal in 05/31 , as well as incisional hernia repair at [facility] in 05/31. He was antibiotics for some days for possible cellulitis at the incision site. In September 2019: Neurological symptoms which led to MRI was performed on 10/06/19 revealing bilateral brain metastasis, with the largest lesion 5.7 cm in the left occipital lobe. There was surrounding vasogenic edema and mild midline shift. The patient was started on steroids and referred to radiation oncology. He was felt to be a candidate for stereotactic radiation and is to start that on 09/28/19. He completed treatment on 10/22/19. He was admitted on 10/22/19 for severe GI bleed. He was transferred to [facility]. His stay was complicated with ileus. He ultimately improved, and had a colonscopy on 11/02/19 , revealing multiple ulcers, the most prominent at the anastomosis line. The mucosa was clear a few cm beyond the distal terminal ileum. He required 3 U PRBC. He now presents after his scheduled outpatient CT scan for surveillance of metastatic melanoma. CT did not reveal any new suspicious mass or adenopathy. Although Bilateral lower lung pulmonary emboli without evidence of RV strain were identified. Our office had called patient and recommend he be seen in emergency for further evaluation. Cardiology and Pulmonary teams were also asked to evaluate. Patient has been asymptomatic. Ultrasound of BLE did reveal DVT bilaterally. He is currently on heparin drip. Review of Systems A 14 point review of systems assessed and completed and all negative except HPI Past Medical History Past Medical History: Cancer, CVA/TIA, Deep Vein Thrombosis (DVT), GI Bleed, Hypertension, Osteoarthritis (OA), Pulmonary Embolus (PE) Additional Past Medical History / Comment(s): Melanoma, hx perforated bowel from chemo tx. Tumors to brain radiation treatments finished History of Any Multi-Drug Resistant Organisms: None Reported Past Surgical History: Bowel Resection, Hernia Repair, Joint Replacement Additional Past Surgical History / Comment(s): colostomy/later removed, inguinal and incisional hernia repair, left hip replacement, left knee replacement, ANTERIOR TOTAL RIGHT HIP Past Anesthesia/Blood Transfusion Reactions: No Reported Reaction Additional Past Anesthesia/Blood Transfusion Reaction / Comm: severe constipation post op Past Psychological History: No Psychological Hx Reported Smoking Status: Never smoker Past Alcohol Use History: None Reported Past Drug Use History: None Reported - Past Family History Mother Family Medical History: Dementia Additional Family Medical History / Comment(s): Mother is 91-year-old with history of vascular dementia. Father Family Medical History: CVA/TIA Additional Family Medical History / Comment(s): Father at age of 88 from CVA and history of Parkinson disease. Brother(s) Family Medical History: No Reported History Additional Family Medical History / Comment(s): Patient and 2 brothers one of them in 1989 from AIDS the other one is okay. Sister(s) Family Medical History: GI Bleed Additional Family Medical History / Comment(s): Patient had 2 sisters one from colitis at the other one is okay. Son(s) Family Medical History: No Reported History Additional Family Medical History / Comment(s): Patient has 2 sons no major medical problems. Daughter(s) Family Medical History: No Reported History Additional Family Medical History / Comment(s): One daughter no major medical problems. Medications and Allergies Home Medications Medication Instructions Recorded Confirmed Type Dexamethasone 4 mg PO QAM 10/22/19 01/11/20 History Pantoprazole Sodium [Protonix] 40 mg PO BID 11/17/19 01/11/20 History Dexamethasone 2 mg PO HS 01/11/20 01/11/20 History levETIRAcetam 1,000 mg PO BID 01/11/20 01/11/20 History Allergies Allergy/AdvReac Type Severity Reaction Status Date / Time No Known Allergies Allergy Verified 01/11/20 22:21 Physical Exam Vitals: Vital Signs Temp Pulse Pulse Resp BP BP Pulse Ox 01/12/20 12:00 97.4 F L 69 16 139/75 99 01/12/20 08:00 97.2 F L 69 16 143/74 98 01/12/20 03:52 98 F 54 L 16 140/65 100 01/12/20 00:00 98 F 55 L 16 136/70 98 01/11/20 22:54 97.5 F L 54 L 16 128/68 98 01/11/20 21:21 97.6 F 58 L 17 123/56 99 01/11/20 19:45 98.2 F 70 18 124/72 99 Intake and Output 01/12/20 01/12/20 01/12/20 06:59 14:59 22:59 Intake Total 117.056 Output Total 300 2 Balance -182.944 -2 Intake: Intake, IV Titration 117.056 Amount Heparin Sod,Pork in 0.45% 117.056 NaCl 25,000 unit In 0.45 % NaCl 1 250ml.bag @ 18 UNITS/KG/HR 18.779 mls/hr IV .[id number] [facility] Rx#: [id number] Output: Urine 300 Stool 2 Other: Voiding Method Urinal Urinal Weight 91.5 kg Gen: Alert and Oriented, NAD Head: NA, AT Ext: BUE adn BLE edema Lungs: Wheezes exp Heart: RRR Abdomen: Soft, ND Psych: Calm Skin: Pale Results CBC & Chem 7: 01/12/20 12:48 01/11/20 20:17 Labs: Abnormal Lab Results - Last 24 Hours (Table) 01/11/20 01/11/20 01/11/20 Range/Units 20:17 20:17 22:20 WBC 11.0 H (3.8-10.6) k/uL RBC 3.63 L (4.30-5.90) m/uL Hgb 9.5 L (13.0-17.5) gm/dL Hct 29.1 L (39.0-53.0) % MCH (25.0-35.0) pg MCHC (31.0-37.0) g/dL RDW 17.6 H (11.5-15.5) % Plt Count (150-450) k/uL Neutrophils # 9.0 H (1.3-7.7) k/uL INR (<1.2) APTT 18.9 L (22.0-30.0) sec D-Dimer 5.95 H (<0.60) mg/L FEU Sodium 130 L (137-145) mmol/L BUN 24 H (9-20) mg/dL Glucose 138 H (74-99) mg/dL Total Protein 5.8 L (6.3-8.2) g/dL Albumin 3.4 L (3.5-5.0) g/dL LDL Cholesterol, Calc (0-99) mg/dL 01/12/20 01/12/20 01/12/20 Range/Units 03:23 07:17 07:17 WBC (3.8-10.6) k/uL RBC 2.87 L (4.30-5.90) m/uL Hgb 7.1 L D (13.0-17.5) gm/dL Hct 23.6 L (39.0-53.0) % MCH 24.6 L (25.0-35.0) pg MCHC 30.0 L (31.0-37.0) g/dL RDW 17.9 H (11.5-15.5) % Plt Count 142 L (150-450) k/uL Neutrophils # (1.3-7.7) k/uL INR 1.2 H (<1.2) APTT >200.0 H* (22.0-30.0) sec D-Dimer (<0.60) mg/L FEU Sodium (137-145) mmol/L BUN (9-20) mg/dL Glucose (74-99) mg/dL Total Protein (6.3-8.2) g/dL Albumin (3.5-5.0) g/dL LDL Cholesterol, Calc (0-99) mg/dL 01/12/20 01/12/20 Range/Units 07:17 12:48 WBC 15.8 H (3.8-10.6) k/uL RBC 3.57 L (4.30-5.90) m/uL Hgb 9.0 L D (13.0-17.5) gm/dL Hct 29.6 L (39.0-53.0) % MCH (25.0-35.0) pg MCHC 30.4 L (31.0-37.0) g/dL RDW 17.3 H (11.5-15.5) % Plt Count (150-450) k/uL Neutrophils # 10.8 H (1.3-7.7) k/uL INR (<1.2) APTT (22.0-30.0) sec D-Dimer (<0.60) mg/L FEU Sodium (137-145) mmol/L BUN (9-20) mg/dL Glucose (74-99) mg/dL Total Protein (6.3-8.2) g/dL Albumin (3.5-5.0) g/dL LDL Cholesterol, Calc 106 H (0-99) mg/dL CT scan - abdomen: report reviewed CT scan - chest: report reviewed CT scan - pelvis: report reviewed Venous US: report reviewed Assessment and Plan Plan: Assessment and Recommendations: New Bilateral Pulmonary Emoboli and BLE DVT: - Currently on heparin drip, monitor for 24 hours with recent history of GI bleed and then convert to Eliquis full dose anticoagulation - CHeck BUE Doppler with edema - Monitor closely bleeding Metastatic Melanoma:Brain - Status Post radiation ending in October - CT scans reveal no new indications of progression, continue on surveillance as outpatient with Dr. 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 Normocytic Anemia: - Underlying etiology not completely clear, he has history of GI bleed blood lo ss anemia. ALthough hemoglobin of 7 on admission, unexplained. - Serial CBC, especially with new Anticoagulation - Anemia work-up ordered Physician Attest: I have completed the full history and physical and agree with above dictation by lidia kimble NP. Dictated as a scribe.
--- NOTE | 2020-01-12 17:09 | US ---
EXAMINATION TYPE: US venous doppler duplex UE DATE OF EXAM: 01/12/2020 COMPARISON: NONE CLINICAL HISTORY: edema new swelling. Bilateral lower extremity DVT. Bilateral PE. Stopped Heparin this morning due to rectal bleeding. Hx of right arm port that got clotted up per patient. Hx right midline. SIDE PERFORMED: Bilateral Right Arm: Negative for DVT. Positive for SVT in Basilic vein. Left Arm: Negative for DVT. Grayscale, color doppler, spectral doppler imaging performed of the deep veins of the bilateral upper extremities. There is normal flow, compressibility and vascular waveforms in the deep vessels. IMPRESSION: No evidence of acute DVT in either upper extremity. Superficial thrombus right basilic ve in is identified.
[2020-01-12 18:27] LABS: Anisocytosis Slight; Basophils % (A) 0 %; Eosinophils % (A) 0 %; HCT 26.5 % (39.0-53.0); HGB 7.9 gm/dL (13.0-17.5); Hypochromasia Marked; Lymphocytes # (A) 0.8 k/uL (1.0-4.8); Lymphocytes % (A) 9 %; MCH 24.5 pg (25.0-35.0); MCHC 29.8 g/dL (31.0-37.0); MCV 82.2 fL (80.0-100.0); Microcytosis Slight; Monocytes # (A) 0.4 k/uL (0-1.0); Monocytes % (A) 4 %; Neutrophils # (A) 7.4 k/uL (1.3-7.7); Neutrophils % (A) 85 %; Platelet Count 195 k/uL (150-450); Poikilocytosis Moderate; RBC 3.22 m/uL (4.30-5.90); RDW 18.2 % (11.5-15.5); WBC 8.6 k/uL (3.8-10.6)
[2020-01-12 18:49] LABS: Prothrombin Time 10.3 sec (9.0-12.0)
[2020-01-12 18:52] LABS: Partial Thromboplastin Time 20.1 sec (22.0-30.0)
[2020-01-12 22:21] LABS: Reticulocyte % 5.12 % (0.10-1.80)
[2020-01-12 23:32] LABS: % Iron Saturation 6.09 (15.00-50.00); Ferritin 17.8 ng/mL (22.0-322.0)
[2020-01-13 06:53] LABS: Anisocytosis Slight; Basophils % (A) 0 %; Eosinophils % (A) 0 %; HGB 7.2 gm/dL (13.0-17.5); Hypochromasia Marked; Lymphocytes # (A) 1.3 k/uL (1.0-4.8); Lymphocytes % (A) 17 %; MCH 24.7 pg (25.0-35.0); MCHC 30.1 g/dL (31.0-37.0); Mean Platelet Volume 7.2; Microcytosis Slight; Monocytes # (A) 0.4 k/uL (0-1.0); Monocytes % (A) 5 %; Neutrophils # (A) 5.8 k/uL (1.3-7.7); Neutrophils % (A) 75 %; Platelet Count 168 k/uL (150-450); Poikilocytosis Moderate; RBC 2.93 m/uL (4.30-5.90); WBC 7.8 k/uL (3.8-10.6)
[2020-01-13] MEDS: SODIUM CHLORIDE 0.9% 1,000 ML IV SCH ×3 (06:58→20:33)
[2020-01-13 07:06] LABS: INR 1.1 (<1.2); Partial Thromboplastin Time 83.3 sec (22.0-30.0)
[2020-01-13 07:29] LABS: ALT 19 U/L (4-49); AST 18 U/L (17-59); African American GFR (CKD) >90 (>60 ml/min/1.73 sqM); Albumin 2.8 g/dL (3.5-5.0); Alkaline Phosphatase 29 U/L (38-126); Anion Gap 9 mmol/L; Blood Urea Nitrogen 20 mg/dL (9-20); Calcium 8.5 mg/dL (8.4-10.2); Carbon Dioxide 20 mmol/L (22-30); Chloride 102 mmol/L (98-107); Glucose 91 mg/dL (74-99); Non-African American GFR(CKD) >90 (>60 ml/min/1.73 sqM); Potassium 4.4 mmol/L (3.5-5.1); Sodium 131 mmol/L (137-145); Total Bilirubin 0.3 mg/dL (0.2-1.3)
[2020-01-13] MEDS: DEXAMETHASONE 4 MG TAB PO SCH ×2 (09:00→21:29)
[2020-01-13] MEDS: levETIRAcetam 500 MG TAB PO SCH ×2 (09:00→20:33)
[2020-01-13] MEDS: PANTOPRAZOLE 40 MG TABLET PO SCH ×2 (09:00→17:53)
[2020-01-13] MEDS: ASPIRIN 325 MG TAB PO SCH (09:01)
--- NOTE | 2020-01-13 09:21 | P.PN ---
Subjective Progress Note Date: 01/13/20 This is a 64-year-old male one of Dr. Ramos with a previous medical history significant for melanoma and underwent chemotherapy developed to have a significant ischemic colitis with Clostridium difficile colitis followed by subtotal colectomy with ileostomy placement followed by revision of the ileostomy and was recently diagnosed with metastatic brain lesion for which he underwent radiation therapy that was done by Dr. Jones and completed on October 21. Patient was having outpatient scheduled CAT scan for follow-up ordered by Dr. Henriquez yesterday and found to have no new suspicious mass or adenopathy. Bilateral lower lung pulmonary emboli without evidence of RV strain. Patient was then contacted by Dr. Henriquez and instructed to come into the hospital for evaluation. In the emergency center, patient was given eliquis 10 mg 1 dose and started on a heparin drip and then admitted to the cardiac stepdown unit. Consults in place with cardiology and oncology. Patient states he has not had any symptoms. No chest pain, shortness of breath. He denies any recent seizure activity. He is currently using a cane only when he was wheelchair bound recently. He states his balance is much improved and around the house he is no longer using a cane. He denies any memory issues. He has not been on any blood thinners recently. patient was hospitalized in October of this year due to acute syncopal episode and acute GI bleed, status post EGD finding gastritis without active upper GI bleed. Patient had significant bleeding and hypotensive requiring vasopressors. He underwent tagged RBC scan that was inconclusive the decision was to transfer the patient to a tertiary care center at [facility] for possible need for immobilization of the bleeder in the small bowel versus of bleeding at the anastomotic area. The patient has not had any further GI bleed but it was reported by his nurse this morning that he had a large amount of blood rectally. Heparin drip was subsequently held and CBC ordered for this afternoon and morning. Await recommendations from oncology regarding anticoagulation. Ultrasound of bilateral lower extremities positive bilaterally for DVT. 01/12: Patient has been restarted on heparin drip last evening. Patient had another bright red blood in the toilet this morning. He has been seen by Dr. Jacksonin is scheduled for a Michel filter this afternoon. Consult with GI has been added. Upper extremity ultrasound negative for DVT. Echocardiogram reveals EF of 60-65%, moderate concentric left ventricular hypertrophy, mild tricuspid regurgitation, RVSP normal less than 35 mmHg. Right arterial pressure 5 mmHg. Repeat blood work reveals hemoglobin of 7.2. Patient has been afebrile, heart rate 59, blood pressure 130/81, pulse ox 100% on room air. Patient continues to deny any shortness of breath. Patient is also followed by cardiology. Objective - Vital Signs Vital signs: Vital Signs Temp 98.0 F 01/13/20 05:58 Pulse 58 L 01/13/20 05:58 Resp 20 01/13/20 05:58 BP 120/81 01/13/20 05:58 Pulse Ox 99 01/13/20 05:58 Intake & Output 01/12/20 01/13/20 01/13/20 18:59 06:59 18:59 Intake Total 748.665 Output Total 2 Balance -2 748.665 Weight 112.7 kg Intake: Intake, IV Titration 568.665 Amount Heparin Sod,Pork in 0.45% 168.665 NaCl 25,000 unit In 0.45 % NaCl 1 250ml.bag @ 18 UNITS/KG/HR 16.47 mls/hr IV .[id number] [facility] Rx#: [id number] Sodium Chloride 0.9% 1, 400 000 ml @ 100 mls/hr IV . Q10H [facility] Rx#:[id number] Oral 180 Output: Stool 2 Other: Voiding Method Urinal # Voids 1 - Exam Review of Systems Constitutional: No fever, no chills, no night sweats. No weight change. No weakness, fatigue or lethargy. No daytime sleepiness. EENT: No headache. No blurred vision or double vision, no loss of vision. No loss of Hearing, no ringing in the ears, no dizziness. No nasal drainage or congestion. No epistaxis. No sore throat. Lungs: No shortness of breath, cough, no sputum production. No wheezing. Cardiovascular: No chest pain, no lower extremity edema. No palpitations. No paroxysmal nocturnal dyspnea. No orthopnea. No lightheadedness or dizziness. No syncopal episodes. Abdominal: No abdominal pain. No nausea, vomiting. No diarrhea. No constipation. Reports bloody stools. No loss of appetite. Reports BRRB. Genitourinary: No dysuria, increased frequency, urgency. No urinary retention. Musculoskeletal: No myalgias. No muscle weakness, no gait dysfunction, no frequent falls. No back pain. No neck pain. Integumentary: No wounds, no lesions. No rash or pruritus. No unusual bruising. No change in hair or nails. Neurologic: No aphasia. No facial droop. No change in mentation. No head injury. No headache. No paralysis. No paresthesia. No seizure activity. Psychiatric: No depression. No anxiety. No mood swings. Endocrine: No abnormal blood sugars. No weight change. No excessive sweating or thirst. No cold intolerance. Physical examination HEENT: Head is atraumatic, normocephalic, pupils were equal round reactive to light and accommodation, extraocular muscle movement intact. Neck: Supple, no JVP. Chest: Decreased breath sounds at the bases, few rhonchi, no expiratory wheezes, no chest wall tenderness, no intercostal retractions. Heart : First heart sound is depressed, second heart sound is normal, there is systolic ejection murmur 2/6 located at left sternal border. Abdomen: Soft, not distended, no abdominal tenderness, positive bowel sounds. Multiple scars in the abdomen. Extremities: No edema, no calf tenderness. Neurologic examination: Patient is awake alert and oriented 3, cranial nerves III-12 appear grossly intact. Muscle power 5 out of 5 in upper and lower extremities bilaterally. - Labs CBC & Chem 7: 01/13/20 06:34 01/13/20 06:34 Labs: Abnormal Lab Results - Last 24 Hours (Table) 01/12/20 01/12/20 01/12/20 Range/Units 12:48 12:48 18:06 WBC 15.8 H (3.8-10.6) k/uL RBC 3.57 L (4.30-5.90) m/uL Hgb 9.0 L D (13.0-17.5) gm/dL Hct 29.6 L (39.0-53.0) % MCH (25.0-35.0) pg MCHC 30.4 L (31.0-37.0) g/dL RDW 17.3 H (11.5-15.5) % Neutrophils # 10.8 H (1.3-7.7) k/uL Lymphocytes # (1.0-4.8) k/uL Retic Count 5.12 H (0.10-1.80) % APTT (22.0-30.0) sec Sodium (137-145) mmol/L Carbon Dioxide (22-30) mmol/L Iron 22 L (65-175) ug/dL % Saturation 6.09 L (15.00-50.00) Ferritin 17.8 L (22.0-322.0) ng/mL Alkaline Phosphatase (38-126) U/L Lactate Dehydrogenase 663 H (313-618) U/L Total Protein (6.3-8.2) g/dL Total Protein (PEP) (6.2-8.2) g/dL Albumin (3.5-5.0) g/dL Vitamin B12 185.0 L (200.0-944.0) pg/mL 01/12/20 01/12/20 01/12/20 Range/Units 18:06 18:06 18:06 WBC (3.8-10.6) k/uL RBC 3.22 L (4.30-5.90) m/uL Hgb 7.9 L (13.0-17.5) gm/dL Hct 26.5 L (39.0-53.0) % MCH 24.5 L (25.0-35.0) pg MCHC 29.8 L (31.0-37.0) g/dL RDW 18.2 H (11.5-15.5) % Neutrophils # (1.3-7.7) k/uL Lymphocytes # 0.8 L (1.0-4.8) k/uL Retic Count (0.10-1.80) % APTT 20.1 L (22.0-30.0) sec Sodium (137-145) mmol/L Carbon Dioxide (22-30) mmol/L Iron (65-175) ug/dL % Saturation (15.00-50.00) Ferritin (22.0-322.0) ng/mL Alkaline Phosphatase (38-126) U/L Lactate Dehydrogenase (313-618) U/L Total Protein (6.3-8.2) g/dL Total Protein (PEP) 5.0 L (6.2-8.2) g/dL Albumin (3.5-5.0) g/dL Vitamin B12 (200.0-944.0) pg/mL 01/12/20 01/13/20 01/13/20 Range/Units 23:46 06:34 06:34 WBC (3.8-10.6) k/uL RBC 2.93 L (4.30-5.90) m/uL Hgb 7.2 L (13.0-17.5) gm/dL Hct 24.0 L (39.0-53.0) % MCH 24.7 L (25.0-35.0) pg MCHC 30.1 L (31.0-37.0) g/dL RDW 18.0 H (11.5-15.5) % Neutrophils # (1.3-7.7) k/uL Lymphocytes # (1.0-4.8) k/uL Retic Count (0.10-1.80) % APTT 68.8 H 83.3 H (22.0-30.0) sec Sodium (137-145) mmol/L Carbon Dioxide (22-30) mmol/L Iron (65-175) ug/dL % Saturation (15.00-50.00) Ferritin (22.0-322.0) ng/mL Alkaline Phosphatase (38-126) U/L Lactate Dehydrogenase (313-618) U/L Total Protein (6.3-8.2) g/dL Total Protein (PEP) (6.2-8.2) g/dL Albumin (3.5-5.0) g/dL Vitamin B12 (200.0-944.0) pg/mL 01/13/20 Range/Units 06:34 WBC (3.8-10.6) k/uL RBC (4.30-5.90) m/uL Hgb (13.0-17.5) gm/dL Hct (39.0-53.0) % MCH (25.0-35.0) pg MCHC (31.0-37.0) g/dL RDW (11.5-15.5) % Neutrophils # (1.3-7.7) k/uL Lymphocytes # (1.0-4.8) k/uL Retic Count (0.10-1.80) % APTT (22.0-30.0) sec Sodium 131 L (137-145) mmol/L Carbon Dioxide 20 L (22-30) mmol/L Iron (65-175) ug/dL % Saturation (15.00-50.00) Ferritin (22.0-322.0) ng/mL Alkaline Phosphatase 29 L (38-126) U/L Lactate Dehydrogenase (313-618) U/L Total Protein 5.0 L (6.3-8.2) g/dL Total Protein (PEP) (6.2-8.2) g/dL Albumin 2.8 L (3.5-5.0) g/dL Vitamin B12 (200.0-944.0) pg/mL Assessment and Plan Plan: 1. Acute pulmonary embolism and bilateral lower extremity DVT. Echocardiogram as above. Consults with oncology and cardiology appreciated. Patient is scheduled with Dr. Gillis for [place] filter placement this afternoon. 2. History of acute GI bleed and acute blood loss anemia in October 2019, [facility]. 3. Acute rectal bleeding. Hold heparin. Repeat CBC this afternoon and in the morning. Protonix 40 mg twice daily. Consult with GI added. 4. History of melanoma with metastatic disease post radiation therapy completed in October. Continue Keppra 1000 mg twice daily, dexamethasone 4 mg of the morning and 2 mg at bedtime. 5. GERD with GI prophylaxis continue PPI. 6. Hyperlipidemia. Stable. 7. BPH. Stable. Discharge plan: home Impression and plan of care have been directed as dictated by the signing physician. Nai Souza nurse practitioner acting as scribe for signing physician.
--- NOTE | 2020-01-13 09:24 | CONS ---
DATE OF CONSULTATION: 01/13/2020 This is a 64-year-old pleasant gentleman who has history of melanoma and with brain METS under care of Dr. Henriquez. Patient came with DVT of the right lower extremity involving the popliteal vein, left femoral vein. Patient was started on heparin. Patient is having GI bleed. I was consulted for placement of the filter. MEDICAL HISTORY: History of hypertension, GI bleed, history of melanoma, history of PE. SURGICAL HISTORY: Patient had a bowel resection and hernia repair and joint replacement in the past. PHYSICAL EXAMINATION: Patient was seen in his room, lying comfortably some discomfort in bed. NECK: Supple, trachea central. CHEST: Clear. ABDOMEN: Soft. Femorals are present. The patient has some swelling of the lower extremity. No vascular compromise noted. PLAN: Placement of the filter. Risks and complications of bleeding, infection, thrombosis, migration has been discussed. MMODL / IJN: [id number] / MTDD
--- NOTE | 2020-01-13 12:54 | P.CRDCN ---
<Leilani Ruiz - Last Filed: 01/12/20 10:05> History of Present Illness History of present illness: This is Leilani Ruiz PA-C scribing on behalf of Dr. Farmer The patient was interviewed and examined by Dr. Farmer HPI Patient is a 64-year-old male with a history of multiple myeloma who was sent f or evaluation by his primary care doctor for an abnormal CT. Patient has CT scans every 6 months for surveillance and on his recent CT he was found to have pulmonary embolism. Denied any chest pain, shortness of breath, dizziness or syncope. He states he noticed very mild lower extremity edema, denies any pain. He was sent to the emergency department for further evaluation and treatment. Upon arrival to the emergency department his vital signs were stable. He was found to have bilateral DVTs. EKG shows sinus mechanism without any acute abnormalities. He has been started on heparin. Patient denies any history of hypertension or diabetes does have a history of GI bleeding in October which resolved after he had several colonic polyps removed ROS: No fevers, chills or rigors, no cough, phlegm or expectoration, no nausea, vomiting or diarrhea, no hematuria, dysuria, no musculoskeletal complaints, no strokes or seizures, no skin lesions. EXAMINATION: Dr. Farmer examined the patient Patient is afebrile, pulse in the 60s, respirations 16, blood pressure 143/74, oxygen saturation 98% on room air Lungs are clear to auscultation bilaterally Heart is regular, no murmurs No elevated JVD trace lower extremity edema on the left leg REVIEW OF LABS, ECG & MEDICAL DATA WBC 8.3, hemoglobin 7.1, platelets 242 Troponin negative 3 LDL 106 IMPRESSION / ASSESSMENT: Pulmonary embolism Bilateral lower extremity DVTs History of GI bleeding History of multiple myeloma Anemia Few blood pressure readings in the 140 systolic, no history of hypertension PLAN: Awaiting echo results continue to monitor blood pressure Workup and management of anemia per primary care team If echocardiogram is normal, we will follow-up with him on an outpatient basis for further workup and management Past Medical History Past Medical History: Cancer, CVA/TIA, Deep Vein Thrombosis (DVT), GI Bleed, Hypertension, Osteoarthritis (OA), Pulmonary Embolus (PE) Additional Past Medical History / Comment(s): Melanoma, hx perforated bowel from chemo tx. Tumors to brain radiation treatments finished History of Any Multi-Drug Resistant Organisms: None Reported Past Surgical History: Bowel Resection, Hernia Repair, Joint Replacement Additional Past Surgical History / Comment(s): colostomy/later removed, inguinal and incisional hernia repair, left hip replacement, left knee replacement, ANTERIOR TOTAL RIGHT HIP Past Anesthesia/Blood Transfusion Reactions: No Reported Reaction Additional Past Anesthesia/Blood Transfusion Reaction / Comment(s): severe constipation post op Past Psychological History: No Psychological Hx Reported Smoking Status: Never smoker Past Alcohol Use History: None Reported Past Drug Use History: None Reported - Past Family History Mother Family Medical History: Dementia Father Family Medical History: CVA/TIA Brother(s) Family Medical History: No Reported History Sister(s) Family Medical History: GI Bleed Son(s) Family Medical History: No Reported History Daughter(s) Family Medical History: No Reported History Medications and Allergies Home Medications Medication Instructions Recorded Confirmed Type Dexamethasone 4 mg PO QAM 10/22/19 01/11/20 History Pantoprazole Sodium [Protonix] 40 mg PO BID 11/17/19 01/11/20 History Dexamethasone 2 mg PO HS 01/11/20 01/11/20 History levETIRAcetam 1,000 mg PO BID 01/11/20 01/11/20 History Allergies Allergy/AdvReac Type Severity Reaction Status Date / Time No Known Allergies Allergy Verified 01/11/20 22:21 Physical Exam Vitals: Vital Signs Temp Pulse Pulse Resp BP BP Pulse Ox 01/12/20 08:00 97.2 F L 60 16 143/74 98 01/12/20 03:52 98 F 54 L 16 140/65 100 01/12/20 00:00 98 F 55 L 16 136/70 98 01/11/20 22:54 97.5 F L 54 L 16 128/68 98 01/11/20 21:21 97.6 F 58 L 17 123/56 99 01/11/20 19:45 98.2 F 70 18 124/72 99 Intake and Output 01/11/20 01/12/20 01/12/20 22:59 06:59 14:59 Intake Total 117.056 Output Total 300 Balance -182.944 Intake: Intake, IV Titration 117.056 Amount Heparin Sod,Pork in 0.45% 117.056 NaCl 25,000 unit In 0.45 % NaCl 1 250ml.bag @ 18 UNITS/KG/HR 18.779 mls/hr IV .[id number] COUNT INCLUDES THE [facility] Rx#: [id number] Output: Urine 300 Other: Voiding Method Urinal Weight 104.326 kg 91.5 kg Results 01/12/20 07:17 01/11/20 20:17 Cardiac Enzymes 01/11/20 01/11/20 01/12/20 Range/Units 20:17 20:17 03:23 AST 26 (17-59) U/L Troponin I <0.012 <0.012 (0.000-0.034) ng/mL 01/12/20 Range/Units 07:17 AST (17-59) U/L Troponin I <0.012 (0.000-0.034) ng/mL Coagulation 01/11/20 01/12/20 01/12/20 Range/Units 20:17 03:23 07:17 PT 10.3 11.7 (9.0-12.0) sec APTT 18.9 L >200.0 H* (22.0-30.0) sec Lipids 01/12/20 Range/Units 07:17 Triglycerides 94 (<150) mg/dL Cholesterol 185 (<200) mg/dL HDL Cholesterol 60 (40-60) mg/dL CBC 01/11/20 01/12/20 Range/Units 22:20 07:17 WBC 11.0 H 8.3 (3.8-10.6) k/uL RBC 3.63 L 2.87 L (4.30-5.90) m/uL Hgb 9.5 L 7.1 L D (13.0-17.5) gm/dL Hct 29.1 L 23.6 L (39.0-53.0) % Plt Count 212 142 L (150-450) k/uL Comprehensive Metabolic Panel 01/11/20 Range/Units 20:17 Sodium 130 L (137-145) mmol/L Potassium 4.7 (3.5-5.1) mmol/L Chloride 98 (98-107) mmol/L Carbon Dioxide 23 (22-30) mmol/L BUN 24 H (9-20) mg/dL Creatinine 0.73 (0.66-1.25) mg/dL Glucose 138 H (74-99) mg/dL Calcium 8.6 (8.4-10.2) mg/dL AST 26 (17-59) U/L ALT 20 (4-49) U/L Alkaline Phosphatase 39 (38-126) U/L Total Protein 5.8 L (6.3-8.2) g/dL Albumin 3.4 L (3.5-5.0) g/dL Current Medications Generic Name Dose Route Start Last Admin Trade Name Augustoq PRN Reason Stop Dose Admin Aspirin 325 mg 01/12/20 09:00 01/12/20 09:56 Aspirin PO 325 mg DAILY ABHAY Administration Dexamethasone 2 mg 01/12/20 21:00 Hexadrol PO HS ABHAY Dexamethasone 4 mg 01/12/20 09:00 Hexadrol PO QAM ABHAY Heparin Sodium (Porcine) 0 unit 01/11/20 21:42 Heparin IV PER PROTOCOL PRN Low PTT Protocol Heparin Sodium/Sodium Chloride 250 mls @ 18.779 mls/hr 01/11/20 21:45 01/11 05:29 25,000 unit/ Sodium Chloride IV 15 units/kg/hr .[id number] ABHAY 15.649 mls/hr Titration Protocol 18 UNITS/KG/HR Sodium Chloride 1,000 mls @ 100 mls/hr 01/11/20 22:15 01/12/20 00:29 Saline 0.9% IV 100 mls/hr .Q10H ABHAY Administration Levetiracetam 1,000 mg 01/12/20 09:00 01/12/20 09:56 Keppra PO 1,000 mg BID ABHAY Administration Morphine Sulfate 4 mg 01/11/20 22:08 Morphine Sulfate (Inj) IV Q4HR PRN Chest Pain Nitroglycerin 0.4 mg 01/11/20 22:08 Nitrostat SUBLINGUAL Q5M PRN Chest Pain Pantoprazole Sodium 40 mg 01/12/20 09:00 01/12/20 09:56 Protonix PO 40 mg AC-BID ABHAY Administration Intake and Output 01/11/20 01/12/20 01/12/20 22:59 06:59 14:59 Intake Total 117.056 Output Total 300 Balance -182.944 Intake: Intake, IV Titration 117.056 Amount Heparin Sod,Pork in 0.45% 117.056 NaCl 25,000 unit In 0.45 % NaCl 1 250ml.bag @ 18 UNITS/KG/HR 18.779 mls/hr IV .[id number] COUNT INCLUDES THE [facility] Rx#: [id number] Output: Urine 300 Other: Voiding Method Urinal Weight 104.326 kg 91.5 kg 01/12/20 07:17 01/11/20 20:17 <Nehemias Farmer - Last Filed: 01/13/20 12:54> Physical Exam Vitals: Vital Signs Temp Pulse Resp BP BP Pulse Ox 01/13/20 08:00 97.9 F 59 L 19 130/81 100 01/13/20 05:58 98.0 F 58 L 20 120/81 99 01/12/20 23:00 66 16 123/69 97 01/12/20 20:00 97.7 F 64 18 125/70 97 01/12/20 16:00 97.2 F L 65 18 122/66 100 Intake and Output 01/12/20 01/13/20 01/13/20 22:59 06:59 14:59 Intake Total 180 568.665 Output Total 1 Balance 180 568.665 -1 Intake: Intake, IV Titration 568.665 Amount Heparin Sod,Pork in 0.45% 168.665 NaCl 25,000 unit In 0.45 % NaCl 1 250ml.bag @ 18 UNITS/KG/HR 16.47 mls/hr IV .[id number] COUNT INCLUDES THE [facility] Rx#: [id number] Sodium Chloride 0.9% 1, 400 000 ml @ 100 mls/hr IV . Q10H COUNT INCLUDES THE [facility] Rx#:[id number] Oral 180 Output: Stool 1 Other: Voiding Method Urinal # Voids 1 2 # Bowel Movements 1 Weight 112.7 kg Results 01/13/20 06:34 01/13/20 06:34 Cardiac Enzymes 01/12/20 01/13/20 Range/Units 18:06 06:34 AST 18 (17-59) U/L Lactate Dehydrogenase 663 H (313-618) U/L Coagulation 01/12/20 01/12/20 01/12/20 Range/Units 12:48 18:06 23:46 PT 10.3 (9.0-12.0) sec APTT 26.4 20.1 L 68.8 H (22.0-30.0) sec 01/13/20 Range/Units 06:34 PT 11.0 (9.0-12.0) sec APTT 83.3 H (22.0-30.0) sec CBC 01/12/20 01/12/20 01/13/20 Range/Units 12:48 18:06 06:34 WBC 15.8 H 8.6 7.8 (3.8-10.6) k/uL RBC 3.57 L 3.22 L 2.93 L (4.30-5.90) m/uL Hgb 9.0 L D 7.9 L 7.2 L (13.0-17.5) gm/dL Hct 29.6 L 26.5 L 24.0 L (39.0-53.0) % Plt Count 227 195 168 (150-450) k/uL Comprehensive Metabolic Panel 01/13/20 Range/Units 06:34 Sodium 131 L (137-145) mmol/L Potassium 4.4 (3.5-5.1) mmol/L Chloride 102 (98-107) mmol/L Carbon Dioxide 20 L (22-30) mmol/L BUN 20 (9-20) mg/dL Creatinine 0.76 (0.66-1.25) mg/dL Glucose 91 (74-99) mg/dL Calcium 8.5 (8.4-10.2) mg/dL AST 18 (17-59) U/L ALT 19 (4-49) U/L Alkaline Phosphatase 29 L (38-126) U/L Total Protein 5.0 L (6.3-8.2) g/dL Albumin 2.8 L (3.5-5.0) g/dL Current Medications Generic Name Dose Route Start Last Admin Trade Name Freq PRN Reason Stop Dose Admin Aspirin 325 mg 01/12/20 09:00 01/13/20 09:01 Aspirin PO Not Given DAILY ABHAY Dexamethasone 2 mg 01/12/20 21:00 01/12/20 20:01 Hexadrol PO 2 mg HS ABHAY Administration Dexamethasone 4 mg 01/12/20 09:00 01/13/20 09:00 Hexadrol PO 4 mg QAM ABHAY Administration Heparin Sodium (Porcine) 0 unit 01/11/20 21:42 Heparin IV PER PROTOCOL PRN Low PTT Protocol Sodium Chloride 1,000 mls @ 100 mls/hr 01/11/20 22:15 01/13/20 06:58 Saline 0.9% IV Not Given .Q10H ABHAY Heparin Sodium/Sodium Chloride 250 mls @ 16.47 mls/hr 01/12/20 18:00 01/13/20 06:17 25,000 unit/ Sodium Chloride IV 0 units/kg/hr .[id number] ABHAY 0 mls/hr Titration Protocol 18 UNITS/KG/HR Levetiracetam 1,000 mg 01/12/20 09:00 01/13/20 09:00 Keppra PO 1,000 mg BID ABHAY Administration Magnesium Citrate 296 ml 01/13/20 19:00 Citrate Of Magnesia PO 01/13/20 19:01 ONCE ONE Morphine Sulfate 4 mg 01/11/20 22:08 Morphine Sulfate (Inj) IV Q4HR PRN Chest Pain Nitroglycerin 0.4 mg 01/11/20 22:08 Nitrostat SUBLINGUAL Q5M PRN Chest Pain Pantoprazole Sodium 40 mg 01/12/20 09:00 01/13/20 09:00 Protonix PO 40 mg AC-BID ABHAY Administration Intake and Output 01/12/20 01/13/20 01/13/20 22:59 06:59 14:59 Intake Total 180 568.665 Output Total 1 Balance 180 568.665 -1 Intake: Intake, IV Titration 568.665 Amount Heparin Sod,Pork in 0.45% 168.665 NaCl 25,000 unit In 0.45 % NaCl 1 250ml.bag @ 18 UNITS/KG/HR 16.47 mls/hr IV .[id number] COUNT INCLUDES THE [facility] Rx#: [id number] Sodium Chloride 0.9% 1, 400 000 ml @ 100 mls/hr IV . Q10H COUNT INCLUDES THE [facility] Rx#:[id number] Oral 180 Output: Stool 1 Other: Voiding Method Urinal # Voids 1 2 # Bowel Movements 1 Weight 112.7 kg 01/13/20 06:34 01/13/20 06:34
[2020-01-13 13:03] LABS: Albumin 3.19 g/dL (3.80-4.90); Gamma Globulin 0.47 g/dL (0.70-1.50)
--- NOTE | 2020-01-13 14:08 | P.PN ---
Subjective Progress Note Date: 01/13/20 Principal diagnosis: Bilateral Pulm Emboli and DVTs Anticoagulaiton resumed overnight without bolus, although blood in bowel movement this am. Hemoglobin has remained stable despite the blood loss. B12 and iron deficiency is noted. Objective - Vital Signs Vital signs: Vital Signs Temp 97.9 F 01/13/20 08:00 Pulse 59 L 01/13/20 08:00 Resp 19 01/13/20 08:00 BP 130/81 01/13/20 08:00 Pulse Ox 100 01/13/20 08:00 Intake & Output 01/12/20 01/13/20 01/13/20 18:59 06:59 18:59 Intake Total 748.665 Output Total 2 1 Balance -2 748.665 -1 Weight 112.7 kg Intake: Intake, IV Titration 568.665 Amount Heparin Sod,Pork in 0.45% 168.665 NaCl 25,000 unit In 0.45 % NaCl 1 250ml.bag @ 18 UNITS/KG/HR 16.47 mls/hr IV .[id number] ABHAY Rx#: [id number] Sodium Chloride 0.9% 1, 400 000 ml @ 100 mls/hr IV . Q10H ABHAY Rx#:[id number] Oral 180 Output: Stool 2 1 Other: Voiding Method Urinal # Voids 1 1 # Bowel Movements 1 - Exam Gen: Alert and Oriented, NAD Head: NA, AT Ext: BUE adn BLE edema Lungs: Wheezes exp Heart: RRR Abdomen: Soft, ND Psych: Calm Skin: Pale - Labs CBC & Chem 7: 01/13/20 06:34 01/13/20 06:34 Labs: Abnormal Lab Results - Last 24 Hours (Table) 01/12/20 01/12/20 01/12/20 Range/Units 12:48 18:06 18:06 RBC (4.30-5.90) m/uL Hgb (13.0-17.5) gm/dL Hct (39.0-53.0) % MCH (25.0-35.0) pg MCHC (31.0-37.0) g/dL RDW (11.5-15.5) % Lymphocytes # (1.0-4.8) k/uL Retic Count 5.12 H (0.10-1.80) % APTT (22.0-30.0) sec Sodium (137-145) mmol/L Carbon Dioxide (22-30) mmol/L Iron 22 L (65-175) ug/dL % Saturation 6.09 L (15.00-50.00) Ferritin 17.8 L (22.0-322.0) ng/mL Alkaline Phosphatase (38-126) U/L Lactate Dehydrogenase 663 H (313-618) U/L Total Protein (6.3-8.2) g/dL Total Protein (PEP) 5.0 L (6.2-8.2) g/dL Albumin (3.5-5.0) g/dL Albumin (PEP) 3.19 L (3.80-4.90) g/dL Uzazp-4-Mbuvxsend 0.52 L (0.60-1.00) g/dL Beta Globulins 0.58 L (0.60-1.30) g/dL Gamma Globulins 0.47 L (0.70-1.50) g/dL Vitamin B12 185.0 L (200.0-944.0) pg/mL 01/12/20 01/12/20 01/12/20 Range/Units 18:06 18:06 23:46 RBC 3.22 L (4.30-5.90) m/uL Hgb 7.9 L (13.0-17.5) gm/dL Hct 26.5 L (39.0-53.0) % MCH 24.5 L (25.0-35.0) pg MCHC 29.8 L (31.0-37.0) g/dL RDW 18.2 H (11.5-15.5) % Lymphocytes # 0.8 L (1.0-4.8) k/uL Retic Count (0.10-1.80) % APTT 20.1 L 68.8 H (22.0-30.0) sec Sodium (137-145) mmol/L Carbon Dioxide (22-30) mmol/L Iron (65-175) ug/dL % Saturation (15.00-50.00) Ferritin (22.0-322.0) ng/mL Alkaline Phosphatase (38-126) U/L Lactate Dehydrogenase (313-618) U/L Total Protein (6.3-8.2) g/dL Total Protein (PEP) (6.2-8.2) g/dL Albumin (3.5-5.0) g/dL Albumin (PEP) (3.80-4.90) g/dL Rwsgw-7-Puybocptm (0.60-1.00) g/dL Beta Globulins (0.60-1.30) g/dL Gamma Globulins (0.70-1.50) g/dL Vitamin B12 (200.0-944.0) pg/mL 01/13/20 01/13/20 01/13/20 Range/Units 06:34 06:34 06:34 RBC 2.93 L (4.30-5.90) m/uL Hgb 7.2 L (13.0-17.5) gm/dL Hct 24.0 L (39.0-53.0) % MCH 24.7 L (25.0-35.0) pg MCHC 30.1 L (31.0-37.0) g/dL RDW 18.0 H (11.5-15.5) % Lymphocytes # (1.0-4.8) k/uL Retic Count (0.10-1.80) % APTT 83.3 H (22.0-30.0) sec Sodium 131 L (137-145) mmol/L Carbon Dioxide 20 L (22-30) mmol/L Iron (65-175) ug/dL % Saturation (15.00-50.00) Ferritin (22.0-322.0) ng/mL Alkaline Phosphatase 29 L (38-126) U/L Lactate Dehydrogenase (313-618) U/L Total Protein 5.0 L (6.3-8.2) g/dL Total Protein (PEP) (6.2-8.2) g/dL Albumin 2.8 L (3.5-5.0) g/dL Albumin (PEP) (3.80-4.90) g/dL Lflyv-8-Fqctnpywm (0.60-1.00) g/dL Beta Globulins (0.60-1.30) g/dL Gamma Globulins (0.70-1.50) g/dL Vitamin B12 (200.0-944.0) pg/mL Assessment and Plan Plan: Assessment and Recommendations: New Bilateral Pulmonary Emoboli and BLE DVT: - Currently on heparin drip, monitor for 24 hours with recent history of GI bleed and then convert to Eliquis full dose anticoagulation - SVT in upper extremity no evidence of DVT in upper extremities. - Monitor closely bleeding Metastatic Melanoma:Brain - Status Post radiation ending in October - CT scans reveal no new indications of progression, continue on surveillance as outpatient with Dr. 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 Normocytic Anemia: - Underlying etiology not completely clear, he has history of GI bleed blood loss anemia. ALthough hemoglobin of 7 on admission, unexplained. - Hemoglobin is holding around 7, despite the positive blood per rectum this am while still on anticoagulation - B12 low and Iron studies low - both requiring supplementation, which has been ordered while inpatient and will continue as outpatient. Plan: - With the increased risk of repeat GI blood loss, GI is following and possibily plan for colonoscopy. If site of bleeding is able to be corrected may be able to resume anticoagulation, although in the interim plan for IVC filter by Dr. Gillis. This will be completed today. We have discussed with GI. - B12 and Iron Supplementation ordered. Physician Attest: I have completed the full history and physical and agree with above dictation by lidia kimble NP. Dictated as a scribe.
--- NOTE | 2020-01-13 14:21 | P.PN ---
Subjective Progress Note Date: 01/13/20 This is a 64-year-old male patient with history of multiple myeloma who was initially sent over to the hospital by his primary care doctor because of an abnormal CT. The patient has a CT every 6 months for surveillance and on his recent CT was found to have pulmonary embolism. He actually denied having any chest discomfort, shortness of breath, dizziness or syncope. He denies any history of hypertension, no hyperlipidemia or diabetes. The patient is still on IV heparin, he scheduled today to undergo an IVC filter. Blood pressure 130/80 with a heart rate of 60, 100% on room air. White blood cell count 7.8, hemoglobin 7.2, platelet count 168. Sodium 131, potassium 4.4, BUN 20 and creatinine 0.7. Objective - Vital Signs Vital signs: Vital Signs Temp 97.9 F 01/13/20 08:00 Pulse 59 L 01/13/20 08:00 Resp 19 01/13/20 08:00 BP 130/81 01/13/20 08:00 Pulse Ox 100 01/13/20 08:00 Intake & Output 01/12/20 01/13/20 01/13/20 18:59 06:59 18:59 Intake Total 748.665 Output Total 2 1 Balance -2 748.665 -1 Weight 112.7 kg Intake: Intake, IV Titration 568.665 Amount Heparin Sod,Pork in 0.45% 168.665 NaCl 25,000 unit In 0.45 % NaCl 1 250ml.bag @ 18 UNITS/KG/HR 16.47 mls/hr IV .[id number] [facility] Rx#: [id number] Sodium Chloride 0.9% 1, 400 000 ml @ 100 mls/hr IV . Q10H ABHAY Rx#:[id number] Oral 180 Output: Stool 2 1 Other: Voiding Method Urinal # Voids 1 1 # Bowel Movements 1 - Exam Dr. Farmer examined the patient Patient is afebrile, pulse in the 60s, respirations 16, blood pressure 143/74, oxygen saturation 98% on room air Lungs are clear to auscultation bilaterally Heart is regular, no murmurs No elevated JVD trace lower extremity edema on the left leg - Labs CBC & Chem 7: 01/13/20 06:34 01/13/20 06:34 Labs: Abnormal Lab Results - Last 24 Hours (Table) 01/12/20 01/12/20 01/12/20 Range/Units 12:48 18:06 18:06 RBC (4.30-5.90) m/uL Hgb (13.0-17.5) gm/dL Hct (39.0-53.0) % MCH (25.0-35.0) pg MCHC (31.0-37.0) g/dL RDW (11.5-15.5) % Lymphocytes # (1.0-4.8) k/uL Retic Count 5.12 H (0.10-1.80) % APTT (22.0-30.0) sec Sodium (137-145) mmol/L Carbon Dioxide (22-30) mmol/L Iron 22 L (65-175) ug/dL % Saturation 6.09 L (15.00-50.00) Ferritin 17.8 L (22.0-322.0) ng/mL Alkaline Phosphatase (38-126) U/L Lactate Dehydrogenase 663 H (313-618) U/L Total Protein (6.3-8.2) g/dL Total Protein (PEP) 5.0 L (6.2-8.2) g/dL Albumin (3.5-5.0) g/dL Albumin (PEP) 3.19 L (3.80-4.90) g/dL Ekjpw-7-Mxbfewtss 0.52 L (0.60-1.00) g/dL Beta Globulins 0.58 L (0.60-1.30) g/dL Gamma Globulins 0.47 L (0.70-1.50) g/dL Vitamin B12 185.0 L (200.0-944.0) pg/mL 01/12/20 01/12/20 01/12/20 Range/Units 18:06 18:06 23:46 RBC 3.22 L (4.30-5.90) m/uL Hgb 7.9 L (13.0-17.5) gm/dL Hct 26.5 L (39.0-53.0) % MCH 24.5 L (25.0-35.0) pg MCHC 29.8 L (31.0-37.0) g/dL RDW 18.2 H (11.5-15.5) % Lymphocytes # 0.8 L (1.0-4.8) k/uL Retic Count (0.10-1.80) % APTT 20.1 L 68.8 H (22.0-30.0) sec Sodium (137-145) mmol/L Carbon Dioxide (22-30) mmol/L Iron (65-175) ug/dL % Saturation (15.00-50.00) Ferritin (22.0-322.0) ng/mL Alkaline Phosphatase (38-126) U/L Lactate Dehydrogenase (313-618) U/L Total Protein (6.3-8.2) g/dL Total Protein (PEP) (6.2-8.2) g/dL Albumin (3.5-5.0) g/dL Albumin (PEP) (3.80-4.90) g/dL Rgldp-3-Qzatnokkh (0.60-1.00) g/dL Beta Globulins (0.60-1.30) g/dL Gamma Globulins (0.70-1.50) g/dL Vitamin B12 (200.0-944.0) pg/mL 01/13/20 01/13/20 01/13/20 Range/Units 06:34 06:34 06:34 RBC 2.93 L (4.30-5.90) m/uL Hgb 7.2 L (13.0-17.5) gm/dL Hct 24.0 L (39.0-53.0) % MCH 24.7 L (25.0-35.0) pg MCHC 30.1 L (31.0-37.0) g/dL RDW 18.0 H (11.5-15.5) % Lymphocytes # (1.0-4.8) k/uL Retic Count (0.10-1.80) % APTT 83.3 H (22.0-30.0) sec Sodium 131 L (137-145) mmol/L Carbon Dioxide 20 L (22-30) mmol/L Iron (65-175) ug/dL % Saturation (15.00-50.00) Ferritin (22.0-322.0) ng/mL Alkaline Phosphatase 29 L (38-126) U/L Lactate Dehydrogenase (313-618) U/L Total Protein 5.0 L (6.3-8.2) g/dL Total Protein (PEP) (6.2-8.2) g/dL Albumin 2.8 L (3.5-5.0) g/dL Albumin (PEP) (3.80-4.90) g/dL Iofmn-7-Iznjcbmtv (0.60-1.00) g/dL Beta Globulins (0.60-1.30) g/dL Gamma Globulins (0.70-1.50) g/dL Vitamin B12 (200.0-944.0) pg/mL Assessment and Plan Plan: IMPRESSION / ASSESSMENT: #1 Pulmonary embolism #2 Bilateral lower extremity DVTs #3 History of GI bleeding #4 History of multiple myeloma #5 Anemia Plan Patient continues to be on IV heparin, he is scheduled for IVC filter placement today, he will need to be initiated on oral anticoagulation per PE protocol. DNP note has been reviewed, I agree with a documented findings and plan of care. Patient was seen and examined.
[2020-01-13] MEDS: MIDAZOLAM 2 MG/2 ML VIAL IV ONE ×2 (15:35→15:55)
[2020-01-13] MEDS ORDERED: LIDOCAINE 1% INJ 10MG/ML (20 ML MDV) SQ ONE (15:40)
[2020-01-13 15:46] LABS: Anisocytosis Slight; HCT 22.9 % (39.0-53.0); HGB 7.4 gm/dL (13.0-17.5); Hypochromasia Marked; MCH 25.5 pg (25.0-35.0); MCHC 32.3 g/dL (31.0-37.0); MCV 78.8 fL (80.0-100.0); Mean Platelet Volume 8.3; Microcytosis Slight; Platelet Count 185 k/uL (150-450); Poikilocytosis Marked; RBC 2.91 m/uL (4.30-5.90); WBC 8.2 k/uL (3.8-10.6)
[2020-01-13] MEDS ORDERED: IV FLUID CONTINUATION 600 ML IV ONE (15:47)
[2020-01-13] MEDS ORDERED: IOPAMIDOL-300 100ML BTL INJ ONE (15:57)
[2020-01-13] MEDS: SODIUM FERRIC GLUCONAT-SUCROSE 125 MG in SODIUM CHLORIDE 0.9% 100 ML IVPB SCH (17:46)
[2020-01-13] MEDS: CYANOCOBALAMIN 1,000 MCG/ML 1 ML VIAL IM SCH (17:46)
[2020-01-13] MEDS ORDERED: MAGNESIUM CITRATE 296 ML BOTTLE PO ONE (19:00)
--- NOTE | 2020-01-13 21:03 | CONS ---
CONSULTATION DATE OF DICTATION: 01/13/2020 REASON FOR CONSULTATION: Acute GI bleed. HISTORY OF PRESENT ILLNESS: The patient is a 64-year-old pleasant white male admitted to the hospital because of rectal bleeding for the last 2 days' duration. 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 He was admitted to the hospital with a severe GI bleed in October of 2019, at which time an upper endoscopy was unremarkable. The patient has a prior history of subtotal colectomy because of chemotherapy-induced C difficile colitis a year and a half ago. Because of severe significant amount of bleeding, he was transferred to [facility] for possible angioembolization, but the bleeding subsided and he underwent sigmoidoscopy on November 02, 2019 that apparently showed multiple ulcerations at the anastomotic site. Following that the patient did extremely well. He was admitted to the hospital yesterday with bilateral lower extremity DVT and was started on IV heparin and subsequently had some significant amount of rectal bleeding x2 yesterday. Heparin was on hold and the bleeding subsided. However, last night the heparin was reintroduced and this morning he had another episode of bright red blood per rectum. He denies any abdominal pain, reports no nausea, no vomiting. No melena. PAST MEDICAL HISTORY: Significant for metastatic melanoma with brain lesion, status post radiation therapy in September of this year, history of DVT diagnosed 2 days ago, history of hypertension. PAST SURGICAL HISTORY: Subtotal colectomy a year and a half ago followed by colostomy, which was eventually removed. Incisional hernia repair. Total right hip replacement. MEDICATIONS: Medications at home include dexamethasone, Protonix and levetiracetam. ALLERGIES: NONE. SOCIAL HISTORY: No smoking. No alcohol use. FAMILY HISTORY: Father had CVA, brother . Sister had GI bleed. REVIEW OF SYSTEMS: CARDIOPULMONARY: He denies any chest pain or shortness of breath. GENITOURINARY: No dysuria or hematuria. MUSCULOSKELETAL: Unremarkable. SKIN: Unremarkable. ENDOCRINE: Unremarkable. PSYCHIATRIC: Unremarkable. NEUROLOGY: Unremarkable. ENT/VISION: Unremarkable. CONSTITUTIONAL: No recent weight loss. No fever, chills, night sweats. PHYSICAL EXAMINATION: He appears comfortable. No apparent distress. Vital signs are stable. Blood pressure is 124/70, pulse rate 61, temperature 97.9. HEENT examination unremarkable. Conjunctivae pink. Sclerae anicteric. Oral cavity no lesions. NECK: No JVD or lymph node enlargement. CHEST: Clear to auscultation. HEART: Regular rate and rhythm. ABDOMEN: Soft. It was non-tender, non-distended. Bowel sounds are positive. No organomegaly. EXTREMITIES: Some pedal edema noted. Tenderness in the left calf. NEUROLOGIC: Alert and oriented x3. No focal deficits. LABS: Labs yesterday: Hemoglobin was 7.1, then it went up to 9. Today is down to 7.2 g/dL. WBC and platelets are within normal limits. BUN and creatinine are 20 and 0.9, respectively. Iron 22, TIBC 361, iron saturation 6% and ferritin is 17.8. Vitamin B12 was low at 185. IMPRESSION: 1. Acute gastrointestinal bleed, possibly lower in etiology. The patient was diagnosed with DVT/PE and presently on IV heparin that was started yesterday. He had a couple of episodes of bright red blood per rectum which subsequently resolved after IV heparin was stopped, but the IV heparin was resumed and this morning he had another small amount of bloody stool with clots. Hemoglobin remains at 7.2 g/dL. Yesterday it was 9.1 g/dL. The patient had a similar episode with massive GI bleed in October of 2019, requiring an upper endoscopy that was unremarkable and he was subsequently transferred to [facility]. As per the patient, he had a colonoscopy done while he was in at [facility] which showed anastomotic ulcerations. The patient has prior history of subtotal colectomy for chemotherapy- induced colitis/C difficile colitis about a year ago. At this time most likely we are dealing with rectal bleeding from anastomotic ulcerations. However, small bowel source of bleeding cannot be excluded. 2. Bilateral deep vein thromboses. The IV heparin has been on hold. Dr. Gillis has been consulted for Luxora filter placement. 3. Metastatic melanoma with brain lesions, presently on dexamethasone and Keppra. RECOMMENDATIONS: 1. Continue with monitoring of CBC every 12 hours. 2. Transfuse if hemoglobin is less than 7. 3. Will proceed with a small bowel capsule endoscopy to exclude small bowel source of bleeding. 4. Once the heparin is stopped and the bleeding subsides, will not plan for endoscopic intervention. Otherwise will consider a repeat flexible sigmoidoscopy during this hospitalization. The plan was discussed with the patient. He is agreeable to it. Thank you for this consultation. SARAH / IJN: [id number] /
--- NOTE | 2020-01-13 23:20 | OP ---
OPERATIVE REPORT PREOPERATIVE DIAGNOSIS: 1. Deep vein thrombosis. 2. History of pulmonary embolism. 3. Low gastrointestinal bleed. PROCEDURE: 1. Inferior vena cavogram. 2. Placement of Tulip infrarenal filter. Sedation time 25 minutes. DESCRIPTION OF PROCEDURE: This patient was brought to the lab animal technician. Right and left groins were prepped and draped were applied in sterile manner. Lidocaine was infiltrated in right groin and micropuncture was introduced into the right common femoral vein. guidewire was passed and a 4 Haitian dilator on top of the guidewire. Then we passed a regular guidewire and a 5-Haitian sheath was advanced on the top of the guidewire. Then we placed a pigtail catheter at the inferior vena cava and vena cavogram was performed. Vena cava was found to be patent. Both were visualized. Then we took the 5-Haitian sheath and placed a regular sheath. Through the sheath we did introduce the Tulip filter below the renal vein and sheath was removed. Vena cavogram was performed. The patient tolerated the procedure well. Sedation time 25 minutes. The patient was transferred to his room in satisfactory condition. MMODL / IJN: [id number] /
[2020-01-13 23:43] LABS: Anisocytosis Slight; HCT 29.3 % (39.0-53.0); Hypochromasia Marked; MCHC 30.5 g/dL (31.0-37.0); MCV 82.1 fL (80.0-100.0); Mean Platelet Volume 7.5; Platelet Count 258 k/uL (150-450); Poikilocytosis Marked; RBC 3.56 m/uL (4.30-5.90); RDW 17.9 % (11.5-15.5); WBC 12.8 k/uL (3.8-10.6)
[2020-01-14 00:06] LABS: HGB 8.9 gm/dL (13.0-17.5)
[2020-01-14] MEDS: HEPARIN SOD,PORK IN 0.45% NACL 25,000 UNIT in 0.45% NACL 1 250ML.BAG IV SCH ×2 (03:07→03:09)
[2020-01-14] MEDS: PANTOPRAZOLE 40 MG TABLET PO SCH ×2 (05:11→13:22)
[2020-01-14] MEDS: SODIUM CHLORIDE 0.9% 1,000 ML IV SCH ×2 (06:19→16:40)
[2020-01-14 06:36] LABS: Anisocytosis Slight; Basophils # (A) 0.1 k/uL (0-0.2); Basophils % (A) 1 %; Eosinophils % (A) 0 %; HCT 24.1 % (39.0-53.0); HGB 7.9 gm/dL (13.0-17.5); Hypochromasia Marked; Lymphocytes # (A) 1.3 k/uL (1.0-4.8); Lymphocytes % (A) 17 %; MCH 26.1 pg (25.0-35.0); MCHC 32.6 g/dL (31.0-37.0); MCV 79.9 fL (80.0-100.0); Microcytosis Slight; Monocytes # (A) 0.5 k/uL (0-1.0); Monocytes % (A) 6 %; Neutrophils # (A) 5.9 k/uL (1.3-7.7); Neutrophils % (A) 74 %; Platelet Count 194 k/uL (150-450); Poikilocytosis Moderate; RBC 3.02 m/uL (4.30-5.90); RDW 18.3 % (11.5-15.5); WBC 7.9 k/uL (3.8-10.6)
--- NOTE | 2020-01-14 07:44 | IR ---
EXAMINATION TYPE: IR IVC filter placement DATE OF EXAM: 01/13/2020 CLINICAL HISTORY: Bilateral pulmonary emboli and DVT. TECHNIQUE: Fluoroscopy. COMPARISON: None. FINDINGS: Fluoroscopic guidance was provided during IVC placement procedure performed by Dr. Gillis . A total of 2.0 minutes of fluoroscopic time was utilized during the procedure and 5 images are acq uired. Images acquired to access via right groin with subsequent placement of IVC filter at roughly L 2-L3 level. IMPRESSION: As Above.
[2020-01-14] MEDS ORDERED: SIMETHICONE 40 MG/0.6 ML DROPS 2,000 MG/30 ML BOTTLE PO ONE (09:30)
--- NOTE | 2020-01-14 11:08 | P.PN ---
Subjective Progress Note Date: 01/14/20 This is a 64-year-old male one of Dr. Ramos with a previous medical history significant for melanoma and underwent chemotherapy developed to have a significant ischemic colitis with Clostridium difficile colitis followed by subtotal colectomy with ileostomy placement followed by revision of the ileostomy and was recently diagnosed with metastatic brain lesion for which he underwent radiation therapy that was done by Dr. Jones and completed on October 21. Patient was having outpatient scheduled CAT scan for follow-up ordered by Dr. Henriquez yesterday and found to have no new suspicious mass or adenopathy. Bilateral lower lung pulmonary emboli without evidence of RV strain. Patient was then contacted by Dr. Henriquez and instructed to come into the hospital for evaluation. In the emergency center, patient was given eliquis 10 mg 1 dose and started on a heparin drip and then admitted to the cardiac stepdown unit. Consults in place with cardiology and oncology. Patient states he has not had any symptoms. No chest pain, shortness of breath. He denies any recent seizure activity. He is currently using a cane only when he was wheelchair bound recently. He states his balance is much improved and around the house he is no longer using a cane. He denies any memory issues. He has not been on any blood thinners recently. patient was hospitalized in October of this year due to acute syncopal episode and acute GI bleed, status post EGD finding gastritis without active upper GI bleed. Patient had significant bleeding and hypotensive requiring vasopressors. He underwent tagged RBC scan that was inconclusive the decision was to transfer the patient to a tertiary care center at [facility] for possible need for immobilization of the bleeder in the small bowel versus of bleeding at the anastomotic area. The patient has not had any further GI bleed but it was reported by his nurse this morning that he had a large amount of blood rectally. Heparin drip was subsequently held and CBC ordered for this afternoon and morning. Await recommendations from oncology regarding anticoagulation. Ultrasound of bilateral lower extremities positive bilaterally for DVT. 01/12: Patient has been restarted on heparin drip last evening. Patient had another bright red blood in the toilet this morning. He has been seen by Dr. Jacksonin is scheduled for a Michel filter this afternoon. Consult with GI has been added. Upper extremity ultrasound negative for DVT. Echocardiogram reveals EF of 60-65%, moderate concentric left ventricular hypertrophy, mild tricuspid regurgitation, RVSP normal less than 35 mmHg. Right arterial pressure 5 mmHg. Repeat blood work reveals hemoglobin of 7.2. Patient has been afebrile, heart rate 59, blood pressure 130/81, pulse ox 100% on room air. Patient continues to deny any shortness of breath. Patient is also followed by cardiology. 01/13: Patient underwent IVC filter yesterday with Dr. Gillis. Patient is scheduled today for a small bowel capsule study with Dr. Todd. Flex sigmoidoscopy may be necessary but patient has had no further bleeding. He denies any rectal bleeding this morning. Patient is off heparin drip. He states his procedure yesterday went well. He denies having any abdominal pain. Oncology is ordered Ferrlecit for 3 doses. Hemoglobin is 7.9. Objective - Vital Signs Vital signs: Vital Signs Temp 98.3 F 01/14/20 04:00 Pulse 63 01/14/20 04:00 Resp 18 01/14/20 04:00 BP 121/67 01/14/20 04:00 Pulse Ox 99 01/14/20 04:00 Intake & Output 01/13/20 01/14/20 01/14/20 18:59 06:59 18:59 Intake Total 100 1350 Output Total 3 1 Balance 97 1349 Weight 110.9 kg Intake: IV 100 Oral 1350 Output: Stool 3 1 Other: Voiding Method Urinal Toilet Urinal # Voids 1 1 # Bowel Movements 1 2 - Exam Review of Systems Constitutional: No fever, no chills, no night sweats. No weight change. No weakness, fatigue or lethargy. No daytime sleepiness. EENT: No headache. No blurred vision or double vision, no loss of vision. No loss of Hearing, no ringing in the ears, no dizziness. No nasal drainage or congestion. No epistaxis. No sore throat. Lungs: No shortness of breath, cough, no sputum production. No wheezing. Cardiovascular: No chest pain, no lower extremity edema. No palpitations. No paroxysmal nocturnal dyspnea. No orthopnea. No lightheadedness or dizziness. No syncopal episodes. Abdominal: No abdominal pain. No nausea, vomiting. No diarrhea. No constipation. Reports bloody stools. No loss of appetite. Reports BRR- resolved. Genitourinary: No dysuria, increased frequency, urgency. No urinary retention. Musculoskeletal: No myalgias. No muscle weakness, no gait dysfunction, no frequent falls. No back pain. No neck pain. Integumentary: No wounds, no lesions. No rash or pruritus. No unusual bruising. No change in hair or nails. Neurologic: No aphasia. No facial droop. No change in mentation. No head injury. No headache. No paralysis. No paresthesia. No seizure activity. Psychiatric: No depression. No anxiety. No mood swings. Endocrine: No abnormal blood sugars. No weight change. No excessive sweating or thirst. No cold intolerance. Physical examination GEN: This is an obese 64-year-old male. He is found ambulating in his room and appears to be in no acute distress. No difficulty with gait or weakne ss noted. HEENT: Head is atraumatic, normocephalic, pupils were equal round reactive to light and accommodation, extraocular muscle movement intact. Neck: Supple, no JVP. Chest: Decreased breath sounds at the bases, few rhonchi, no expiratory wheezes, no chest wall tenderness, no intercostal retractions. Heart : First heart sound is depressed, second heart sound is normal, there is systolic ejection murmur 2/6 located at left sternal border. Abdomen: Soft, not distended, no abdominal tenderness, positive bowel sounds. Multiple scars in the abdomen. Extremities: No edema, no calf tenderness. Neurologic examination: Patient is awake alert and oriented 3, cranial nerves III-12 appear grossly intact. Muscle power 5 out of 5 in upper and lower extremities bilaterally. - Labs CBC & Chem 7: 01/14/20 05:55 01/13/20 06:34 Labs: Abnormal Lab Results - Last 24 Hours (Table) 01/12/20 01/13/20 01/13/20 Range/Units 18:06 15:00 22:30 WBC 12.8 H (3.8-10.6) k/uL RBC 2.91 L 3.56 L (4.30-5.90) m/uL Hgb 7.4 L 8.9 L D (13.0-17.5) gm/dL Hct 22.9 L 29.3 L (39.0-53.0) % MCV 78.8 L (80.0-100.0) fL MCHC 30.5 L (31.0-37.0) g/dL RDW 18.0 H 17.9 H (11.5-15.5) % Albumin (PEP) 3.19 L (3.80-4.90) g/dL Xkxdo-5-Eosmybues 0.52 L (0.60-1.00) g/dL Beta Globulins 0.58 L (0.60-1.30) g/dL Gamma Globulins 0.47 L (0.70-1.50) g/dL 01/14/20 Range/Units 05:55 WBC (3.8-10.6) k/uL RBC 3.02 L (4.30-5.90) m/uL Hgb 7.9 L (13.0-17.5) gm/dL Hct 24.1 L (39.0-53.0) % MCV 79.9 L (80.0-100.0) fL MCHC (31.0-37.0) g/dL RDW 18.3 H (11.5-15.5) % Albumin (PEP) (3.80-4.90) g/dL Cuamx-0-Prhtwpjpf (0.60-1.00) g/dL Beta Globulins (0.60-1.30) g/dL Gamma Globulins (0.70-1.50) g/dL Assessment and Plan Plan: 1. Acute pulmonary embolism and bilateral lower extremity DVT. Echocardiogram as above. Consults with oncology and cardiology appreciated. Status post IVC filter placement yesterday. He is currently off heparin drip.. 2. History of acute GI bleed and acute blood loss anemia in October 2019, transferred [facility]. Records obtained from [facility] 3. Acute rectal bleeding. Hold heparin. Repeat CBC this afternoon and in the morning. Protonix 40 mg twice daily. Consult with GI appreciated. Patient had a small bowel capsule endoscopy today. Monitor for bleeding. Ferrlecit for 3 doses ordered by oncology. 4. History of melanoma with metastatic disease post radiation therapy completed in October. Continue Keppra 1000 mg twice daily, dexamethasone 4 mg of the morning and 2 mg at bedtime. 5. GERD with GI prophylaxis. Continue Protonix twice daily 6. Hyperlipidemia. Stable. 7. BPH. Stable. 8. 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 Discharge plan: home. Possible discharge home tomorrow. Impression and plan of care have been directed as dictated by the signing physician. Nai Souza nurse practitioner acting as scribe for signing physician.
[2020-01-14] MEDS: SODIUM FERRIC GLUCONAT-SUCROSE 125 MG in SODIUM CHLORIDE 0.9% 100 ML IVPB SCH (11:20)
--- NOTE | 2020-01-14 12:53 | P.PN ---
Subjective Progress Note Date: 01/14/20 This is a 64-year-old male patient with history of multiple myeloma who was initially sent over to the hospital by his primary care doctor because of an abnormal CT. The patient has a CT every 6 months for surveillance and on his recent CT was found to have pulmonary embolism. He actually denied having any chest discomfort, shortness of breath, dizziness or syncope. He denies any history of hypertension, no hyperlipidemia or diabetes. The patient is still on IV heparin, he scheduled today to undergo an IVC filter. Blood pressure 130/80 with a heart rate of 60, 100% on room air. White blood cell count 7.8, hemoglobin 7.2, platelet count 168. Sodium 131, potassium 4.4, BUN 20 and creatinine 0.7. 01/14/2020 Patient was seen and examined this morning, he underwent IVC filter placement yesterday with Dr. Gillis. Currently undergoing a small bowel capsule study today with Dr. La Todd. Patient denies any rectal bleeding this morning, he is off of the heparin drip. Denies any abdominal discomfort. We will discontinue his aspirin. Blood pressure 112/60 with a heart rate in the 60s, 97% on room air.White blood cell count 7.9, hemoglobin 7.9, platelet count 194. Objective - Vital Signs Vital signs: Vital Signs Temp 97.5 F L 01/14/20 11:33 Pulse 63 01/14/20 11:33 Resp 16 01/14/20 11:33 BP 112/69 01/14/20 11:33 Pulse Ox 97 01/14/20 11:33 Intake & Output 01/13/20 01/14/20 01/14/20 18:59 06:59 18:59 Intake Total 100 1350 Output Total 3 1 3 Balance 97 1349 -3 Weight 110.9 kg Intake: IV 100 Oral 1350 Output: Stool 3 1 3 Other: Voiding Method Urinal Toilet Toilet Urinal Urinal # Voids 1 1 1 # Bowel Movements 1 2 - Exam Patient is afebrile, pulse in the 60s, respirations 16, blood pressure 112/68, oxygen saturation 97% on room air Lungs are clear to auscultation bilaterally Heart is regular, no murmurs No elevated JVD trace lower extremity edema on the left leg - Labs CBC & Chem 7: 01/14/20 05:55 01/13/20 06:34 Labs: Abnormal Lab Results - Last 24 Hours (Table) 01/12/20 01/13/20 01/13/20 Range/Units 18:06 15:00 22:30 WBC 12.8 H (3.8-10.6) k/uL RBC 2.91 L 3.56 L (4.30-5.90) m/uL Hgb 7.4 L 8.9 L D (13.0-17.5) gm/dL Hct 22.9 L 29.3 L (39.0-53.0) % MCV 78.8 L (80.0-100.0) fL MCHC 30.5 L (31.0-37.0) g/dL RDW 18.0 H 17.9 H (11.5-15.5) % Albumin (PEP) 3.19 L (3.80-4.90) g/dL Vbdfp-1-Xvhrelnex 0.52 L (0.60-1.00) g/dL Beta Globulins 0.58 L (0.60-1.30) g/dL Gamma Globulins 0.47 L (0.70-1.50) g/dL 01/14/20 Range/Units 05:55 WBC (3.8-10.6) k/uL RBC 3.02 L (4.30-5.90) m/uL Hgb 7.9 L (13.0-17.5) gm/dL Hct 24.1 L (39.0-53.0) % MCV 79.9 L (80.0-100.0) fL MCHC (31.0-37.0) g/dL RDW 18.3 H (11.5-15.5) % Albumin (PEP) (3.80-4.90) g/dL Kqtvn-0-Nspjnorlc (0.60-1.00) g/dL Beta Globulins (0.60-1.30) g/dL Gamma Globulins (0.70-1.50) g/dL Assessment and Plan Plan: IMPRESSION / ASSESSMENT: #1 Pulmonary embolism #2 Bilateral lower extremity DVTs #3 History of GI bleeding #4 History of multiple myeloma #5 Anemia Plan Patient underwent placement of IVC filter yesterday. Currently undergoing a capsule study by Dr. La Nogueira. He is off of the IV heparin at this time. Denies any rectal bleeding. Stable from cardiology's perspective. We will discontinue the aspirin. DNP note has been reviewed, I agree with a documented findings and plan of care. Patient was seen and examined.
[2020-01-14] MEDS: DEXAMETHASONE 4 MG TAB PO SCH ×2 (13:22→20:19)
[2020-01-14] MEDS: CYANOCOBALAMIN 1,000 MCG/ML 1 ML VIAL IM SCH (13:22)
[2020-01-14] MEDS: levETIRAcetam 500 MG TAB PO SCH ×2 (13:22→20:18)
--- NOTE | 2020-01-14 14:57 | PN ---
PROGRESS NOTE DATE OF SERVICE: 01/14/2020 Patient is a 64-year-old pleasant white male with metastatic melanoma diagnosed with metastasis in September of this year who was referred to the hospital with bilateral extensive lower extremity DVT. He was started on IV heparin and he developed rectal bleeding and IV heparin is currently on hold. He underwent a Michel filter placement this morning by Dr. Gillis yesterday. Since yesterday, he did not have any further episodes of bleeding. Today he had 2 small brown bowel movement. He reports no abdominal pain. No nausea, vomiting. PHYSICAL EXAMINATION: Appears comfortable, in no apparent distress. Vitals are stable. Blood pressure is 107/69, pulse rate is 52, temperature 97.5. HEENT: Examination unremarkable. Conjunctivae are pink, sclerae nonicteric. Oral cavity no lesions. NECK: No JVD or lymph node enlargement. CHEST: Clear to auscultation. HEART: Regular rate and rhythm. ABDOMEN: Soft. Bowel sounds are positive. No organomegaly. EXTREMITIES: No pedal edema. SKIN: No rashes. NEURO: He is alert and oriented x3. No focal deficits. LABS: Today WBC 7.9 and hemoglobin is 7.9, yesterday hemoglobin was 8.9, platelets normal. Basic metabolic panel is within normal limits. IMPRESSION: Acute GI bleed. The patient had several episodes of bright red blood per rectum yesterday and the day before after he was started on IV heparin for bilateral extensive lower extremity DVT. Heparin is currently on hold. He is status post Michel filter placement and no further episodes of bleeding. Hemoglobin has been stable. He had a similar episode in October of 2019. An upper endoscopy at that time was unremarkable. He was transferred to [facility] and upper endoscopy apparently showed ulcerations at the anastomosis from subtotal colectomy that was done a year prior for severe C difficile colitis. Most likely, the bleeding is from ischemic ulcers at the anastomosis, but small bowel source of bleeding cannot be excluded. RECOMMENDATIONS: 1. Patient is presently undergoing small bowel capsule endoscopy. 2. He will be started on a clear liquid diet today. 3. At this time, I do not plan on endoscopic intervention unless the small bowel capsule shows any evidence of active bleeding. The plan was discussed with the patient. He is agreeable to it. Will follow with you closely. Thank you for this consultation. MMODL / IJN: [id number] /
[2020-01-14] MEDS ORDERED: ACETAMINOPHEN TAB 325 MG TAB PO PRN (16:28)
--- NOTE | 2020-01-14 17:27 | P.PN ---
Subjective Progress Note Date: 01/14/20 Principal diagnosis: Bilateral Pulm Emboli and DVTs Plan for capsule endoscopy and flex sig today. Patient without new symptoms today. Objective - Vital Signs Vital signs: Vital Signs Temp 97.5 F L 01/14/20 11:33 Pulse 63 01/14/20 11:33 Resp 16 01/14/20 11:33 BP 112/69 01/14/20 11:33 Pulse Ox 97 01/14/20 11:33 Intake & Output 01/13/20 01/14/20 01/14/20 18:59 06:59 18:59 Intake Total 100 1350 Output Total 3 1 3 Balance 97 1349 -3 Weight 110.9 kg Intake: IV 100 Oral 1350 Output: Stool 3 1 3 Other: Voiding Method Urinal Toilet Toilet Urinal Urinal # Voids 1 1 1 # Bowel Movements 1 2 - Exam Gen: Alert and Oriented, NAD Head: NA, AT Ext: BUE adn BLE edema Lungs: Wheezes exp Heart: RRR Abdomen: Soft, ND Psych: Calm Skin: Pale - Labs CBC & Chem 7: 01/14/20 05:55 01/13/20 06:34 Labs: Abnormal Lab Results - Last 24 Hours (Table) 01/13/20 01/14/20 Range/Units 22:30 05:55 WBC 12.8 H (3.8-10.6) k/uL RBC 3.56 L 3.02 L (4.30-5.90) m/uL Hgb 8.9 L D 7.9 L (13.0-17.5) gm/dL Hct 29.3 L 24.1 L (39.0-53.0) % MCV 79.9 L (80.0-100.0) fL MCHC 30.5 L (31.0-37.0) g/dL RDW 17.9 H 18.3 H (11.5-15.5) % Assessment and Plan Plan: Assessment and Recommendations: New Bilateral Pulmonary Emoboli and BLE DVT: - Currently on heparin drip, monitor for 24 hours with recent history of GI bleed and then convert to Eliquis full dose anticoagulation - SVT in upper extremity no evidence of DVT in upper extremities. - Monitor closely bleeding Metastatic Melanoma:Brain - Status Post radiation ending in October - CT scans reveal no new indications of progression, continue on surveillance as outpatient with Dr. 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 Normocytic Anemia: - Underlying etiology not completely clear, he has history of GI bleed blood loss anemia. ALthough hemoglobin of 7 on admission, unexplained. - Hemoglobin is holding around 7, despite the positive blood per rectum this am while still on anticoagulation - B12 continued GI Bleeding: - Hold AC therapy at this time - Status post IVC filter - Await Flex sig and Casule study to determine if AC can be restarted Physician Attest: I have completed the full history and physical and agree with above dictation by lidia kimble NP. Dictated as a scribe.
[2020-01-15] MEDS: SODIUM CHLORIDE 0.9% 1,000 ML IV SCH (01:54)
[2020-01-15 06:17] LABS: Anisocytosis Slight; Basophils % (A) 0 %; Eosinophils % (A) 0 %; HCT 22.2 % (39.0-53.0); Hypochromasia Marked; Lymphocytes # (A) 0.8 k/uL (1.0-4.8); Lymphocytes % (A) 11 %; MCH 25.3 pg (25.0-35.0); MCHC 30.8 g/dL (31.0-37.0); MCV 82.3 fL (80.0-100.0); Mean Platelet Volume 7.3; Microcytosis Slight; Monocytes # (A) 0.4 k/uL (0-1.0); Monocytes % (A) 6 %; Neutrophils % (A) 81 %; Platelet Count 169 k/uL (150-450); Poikilocytosis Moderate; RDW 18.7 % (11.5-15.5); WBC 7.4 k/uL (3.8-10.6)
[2020-01-15] MEDS: PANTOPRAZOLE 40 MG TABLET PO SCH ×2 (06:29→17:18)
[2020-01-15 07:03] LABS: HGB 6.8 gm/dL (13.0-17.5)
[2020-01-15] MEDS: DEXAMETHASONE 4 MG TAB PO SCH ×2 (08:47→20:21)
[2020-01-15] MEDS: levETIRAcetam 500 MG TAB PO SCH ×2 (08:47→20:22)
[2020-01-15] MEDS: CYANOCOBALAMIN 1,000 MCG/ML 1 ML VIAL IM SCH (08:47)
--- NOTE | 2020-01-15 12:02 | P.PN ---
<Leilani Ruiz - Last Filed: 01/15/20 10:09> Subjective This is Leilani Ruiz PA-C scribing on behalf of Dr. Farmer The patient was interviewed and examined by Dr. Farmer HPI/interval history Patient is a 64-year-old male with a history of multiple myeloma who was found to have a pulmonary embolism is on a routine surveillance CT. Was also found to have bilateral DVTs. He underwent IVC filter placement. He was started on IV heparin and developed rectal bleeding with this so the IV heparin was on hold. He is undergoing small bowel capsule endoscopy. He remains anemic. He is awaiting blood transfusion today. EXAMINATION Temperature 97.4F, pulse in the 60s, respirations 20s, blood pressure 136/63, oxygen saturation 100% on room air Dr. Farmer and examined the patient Heart is is regular, no audible murmurs Lungs clear to auscultation bilaterally No JVD Lower extremity edema present, left greater than right REVIEW OF LABS, ECG WBC 7.4, hemoglobin 6.8, platelets 169 Echocardiogram shows moderate concentric LVH, EF 60-65%, mild to moderately enlarged RV, normal RVSP IMPRESSION / ASSESSMENT: Pulmonary embolism and bilateral lower extremity DVT status post IVC filter placement GI bleeding, currently undergoing a small bowel capsule endoscopy History of multiple myeloma Anemia, hemoglobin 6.8 Echocardiogram showing EF 60-65%, Mild to moderately enlarged RV PLAN: anticoagulation management per primary team and hematology ongoing workup of GI bleeding from a cardiology standpoint he may follow up outpatient in the office in 3 weeks Objective - Vital Signs Vital signs: Vital Signs Temp 97.4 F L 01/15/20 04:00 Pulse 62 01/15/20 04:00 Resp 20 01/15/20 04:00 BP 136/63 01/15/20 04:00 Pulse Ox 100 01/15/20 04:00 Intake & Output 01/14/20 01/15/20 01/15/20 18:59 06:59 18:59 Intake Total 900 Output Total 4 Balance -4 900 Weight 106.9 kg Intake: Oral 900 Output: Stool 4 Other: Voiding Method Toilet Toilet Urinal Urinal # Voids 1 1 - Labs CBC & Chem 7: 01/15/20 05:20 01/13/20 06:34 Labs: Abnormal Lab Results - Last 24 Hours (Table) 05/01/20 05/01/20 Range/Units 05:20 07:30 RBC 2.70 L (4.30-5.90) m/uL Hgb 6.8 L* (13.0-17.5) gm/dL Hct 22.2 L (39.0-53.0) % MCHC 30.8 L (31.0-37.0) g/dL RDW 18.7 H (11.5-15.5) % Lymphocytes # 0.8 L (1.0-4.8) k/uL Crossmatch See Detail <Nehemias Farmer - Last Filed: 01/15/20 12:02> Objective - Vital Signs Vital signs: Vital Signs Temp 97.4 F L 01/15/20 10:25 Pulse 63 01/15/20 10:25 Resp 14 01/15/20 10:25 BP 122/63 01/15/20 10:25 Pulse Ox 100 01/15/20 08:00 Intake & Output 01/14/20 01/15/20 01/15/20 18:59 06:59 18:59 Intake Total 900 0 Output Total 4 Balance -4 900 0 Weight 106.9 kg Intake: Oral 900 Blood Product 0 Rc As-1 Unit 0 [id number] Output: Stool 4 Other: Voiding Method Toilet Toilet Toilet Urinal Urinal Urinal # Voids 1 1 2 - Labs CBC & Chem 7: 01/15/20 05:20 01/13/20 06:34 Labs: Abnormal Lab Results - Last 24 Hours (Table) 01/15/20 01/15/20 Range/Units 05:20 07:30 RBC 2.70 L (4.30-5.90) m/uL Hgb 6.8 L* (13.0-17.5) gm/dL Hct 22.2 L (39.0-53.0) % MCHC 30.8 L (31.0-37.0) g/dL RDW 18.7 H (11.5-15.5) % Lymphocytes # 0.8 L (1.0-4.8) k/uL Crossmatch See Detail
--- NOTE | 2020-01-15 14:22 | P.PN ---
Subjective Progress Note Date: 01/15/20 This is a 64-year-old male one of Dr. Ramos with a previous medical history significant for melanoma and underwent chemotherapy developed to have a significant ischemic colitis with Clostridium difficile colitis followed by subtotal colectomy with ileostomy placement followed by revision of the ileostomy and was recently diagnosed with metastatic brain lesion for which he underwent radiation therapy that was done by Dr. Jones and completed on October 21. Patient was having outpatient scheduled CAT scan for follow-up ordered by Dr. Henriquez yesterday and found to have no new suspicious mass or adenopathy. Bilateral lower lung pulmonary emboli without evidence of RV strain. Patient was then contacted by Dr. Henriquez and instructed to come into the hospital for evaluation. In the emergency center, patient was given eliquis 10 mg 1 dose and started on a heparin drip and then admitted to the cardiac stepdown unit. Consults in place with cardiology and oncology. Patient states he has not had any symptoms. No chest pain, shortness of breath. He denies any recent seizure activity. He is currently using a cane only when he was wheelchair bound recently. He states his balance is much improved and around the house he is no longer using a cane. He denies any memory issues. He has not been on any blood thinners recently. patient was hospitalized in October of this year due to acute syncopal episode and acute GI bleed, status post EGD finding gastritis without active upper GI bleed. Patient had significant bleeding and hypotensive requiring vasopressors. He underwent tagged RBC scan that was inconclusive the decision was to transfer the patient to a tertiary care center at [facility] for possible need for immobilization of the bleeder in the small bowel versus of bleeding at the anastomotic area. The patient has not had any further GI bleed but it was reported by his nurse this morning that he had a large amount of blood rectally. Heparin drip was subsequently held and CBC ordered for this afternoon and morning. Await recommendations from oncology regarding anticoagulation. Ultrasound of bilateral lower extremities positive bilaterally for DVT. 01/12: Patient has been restarted on heparin drip last evening. Patient had another bright red blood in the toilet this morning. He has been seen by Dr. Jacksonin is scheduled for a Michel filter this afternoon. Consult with GI has been added. Upper extremity ultrasound negative for DVT. Echocardiogram reveals EF of 60-65%, moderate concentric left ventricular hypertrophy, mild tricuspid regurgitation, RVSP normal less than 35 mmHg. Right arterial pressure 5 mmHg. Repeat blood work reveals hemoglobin of 7.2. Patient has been afebrile, heart rate 59, blood pressure 130/81, pulse ox 100% on room air. Patient continues to deny any shortness of breath. Patient is also followed by cardiology. 01/13: Patient underwent IVC filter yesterday with Dr. Gillis. Patient is scheduled today for a small bowel capsule study with Dr. Todd. Flex sigmoidoscopy may be necessary but patient has had no further bleeding. He denies any rectal bleeding this morning. Patient is off heparin drip. He states his procedure yesterday went well. He denies having any abdominal pain. Oncology is ordered Ferrlecit for 3 doses. Hemoglobin is 7.9. 01/14: Patient underwent small bowel capsule study which was inconclusive. Patient is now scheduled for colonoscopy tomorrow. Hemoglobin this morning 6.8 and he has been ordered for 1 unit of packed RBCs. Currently on a clear liquid diet. He has had no further bleeding/bloody stools. Cardiology has discontinued aspirin. Patient has been afebrile, heart rate 78, blood pressure 122/71, pulse ox 99% on room air. Patient will be monitored overnight, complete colonoscopy and possible discharge for tomorrow. Objective - Vital Signs Vital signs: Vital Signs Temp 97.4 F L 01/15/20 04:00 Pulse 62 01/15/20 04:00 Resp 20 01/15/20 04:00 BP 136/63 01/15/20 04:00 Pulse Ox 100 01/15/20 04:00 Intake & Output 01/14/20 01/15/20 01/15/20 18:59 06:59 18:59 Intake Total 900 Output Total 4 Balance -4 900 Weight 106.9 kg Intake: Oral 900 Output: Stool 4 Other: Voiding Method Toilet Toilet Urinal Urinal # Voids 1 1 - Exam Review of Systems Constitutional: No fever, no chills, no night sweats. No weight change. No weakness, fatigue or lethargy. No daytime sleepiness. EENT: No headache. No blurred vision or double vision, no loss of vision. No loss of Hearing, no ringing in the ears, no dizziness. No nasal drainage or congestion. No epistaxis. No sore throat. Lungs: No shortness of breath, cough, no sputum production. No wheezing. Cardiovascular: No chest pain, no lower extremity edema. No palpitations. No paroxysmal nocturnal dyspnea. No orthopnea. No lightheadedness or dizziness. No syncopal episodes. Abdominal: No abdominal pain. No nausea, vomiting. No diarrhea. No constipation. Reports bloody stools. No loss of appetite. Denies BRR- resolved. Genitourinary: No dysuria, increased frequency, urgency. No urinary retention. Musculoskeletal: No myalgias. No muscle weakness, no gait dysfunction, no frequent falls. No back pain. No neck pain. Integumentary: No wounds, no lesions. No rash or pruritus. No unusual bruising. No change in hair or nails. Neurologic: No aphasia. No facial droop. No change in mentation. No head injury. No headache. No paralysis. No paresthesia. No seizure activity. Psychiatric: No depression. No anxiety. No mood swings. Endocrine: No abnormal blood sugars. No weight change. No excessive sweating or thirst. No cold intolerance. Physical examination GEN: This is an obese 64-year-old male. He is resting in bed and appears to be in no acute distress. No difficulty with gait or weakness noted. HEENT: Head is atraumatic, normocephalic, pupils were equal round reactive to light and accommodation, extraocular muscle movement intact. Neck: Supple, no JVP. Chest: Decreased breath sounds at the bases, few rhonchi, no expiratory wheezes, no chest wall tenderness, no intercostal retractions. Heart : First heart sound is depressed, second heart sound is normal, there is systolic ejection murmur 2/6 located at left sternal border. Abdomen: Soft, not distended, no abdominal tenderness, positive bowel sounds. Multiple scars in the abdomen. Extremities: No edema, no calf tenderness. Neurologic examination: Patient is awake alert and oriented 3, cranial nerves III-12 appear grossly intact. Muscle power 5 out of 5 in upper and lower extremities bilaterally. - Labs CBC & Chem 7: 01/15/20 05:20 01/13/20 06:34 Labs: Abnormal Lab Results - Last 24 Hours (Table) 01/15/20 Range/Units 05:20 RBC 2.70 L (4.30-5.90) m/uL Hgb 6.8 L* (13.0-17.5) gm/dL Hct 22.2 L (39.0-53.0) % MCHC 30.8 L (31.0-37.0) g/dL RDW 18.7 H (11.5-15.5) % Lymphocytes # 0.8 L (1.0-4.8) k/uL Assessment and Plan Plan: 1. Acute pulmonary embolism and bilateral lower extremity DVT status post IVC filter placement with Dr. Gillis. Consults with cardiology and oncology appreciated. Heparin has been discontinued. Echocardiogram as above. 2. History of acute GI bleed and acute blood loss anemia in October 2019, transferred [facility]. 3. Acute rectal bleeding, acute blood loss anemia secondary to GI source. Patient is status post small bowel capsule study which was inconclusive. He is scheduled for colonoscopy tomorrow. Transfuse one unit of packed RBCs today. 4. History of melanoma with metastatic disease post radiation therapy completed in October. Continue Keppra 1000 mg twice daily, dexamethasone 4 mg of the morning and 2 mg at bedtime. 5. GERD with GI prophylaxis continue PPI. 6. Hyperlipidemia. Stable. 7. BPH. Stable. 8. 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 9. COVID-19 not present. Discharge plan: home Impression and plan of care have been directed as dictated by the signing physician. Nai Souza nurse practitioner acting as scribe for signing physician.
--- NOTE | 2020-01-15 15:33 | PN ---
PROGRESS NOTE DATE OF SERVICE: 01/15/2020 Patient is a 64-year-old pleasant white male with history of metastatic melanoma with brain metastasis for which he underwent radiation therapy in September of this year. He presents to the hospital with bilateral lower extremity swelling and subsequently diagnosed with extensive DVT. He underwent [place] filter placement yesterday. In the meantime, he was started on IV heparin and while in the hospital, had a few episodes of rectal bleeding, dropped hemoglobin from 6.8, and currently receiving one unit of blood transfusion. The patient had a small bowel capsule endoscopy done yesterday and the results were inconclusive because capsule did not stay in the stomach for the entire study period of 8 hours and hence small bowel could not be visualized. In the meantime, patient is doing well. He did not have any further episodes of bleeding. Currently heparin is off. PHYSICAL EXAMINATION: Appears comfortable, in no apparent distress. Vital signs is stable. Blood pressure is 122/71, pulse is 66, temperature 97.4. HEENT: Examination unremarkable. Conjunctivae are pink. Sclerae nonicteric. Oral cavity, no lesions. NECK: No JVD or lymph node enlargement. CHEST: Clear to auscultation. HEART: Regular rate and rhythm. ABDOMEN: Soft, bowel sounds are positive. No organomegaly. EXTREMITIES: No pedal edema. SKIN: No rashes. NEUROLOGIC: Alert and oriented x3. No focal deficits. LABS: WBC 7.4, hemoglobin 6.8, platelets 169. IMPRESSION: 1. Severe anemia with a few episodes of rectal bleeding 2 days ago while he was on IV heparin. The bleeding has completely stopped since heparin has been on hold. He is status post Michel filter placement yesterday. EGD done in October of 2019 was unremarkable. Flexible sigmoidoscopy done at [facility] on November 05, 2019 showed anastomotic ulcers at the site of previous ileorectal anastomosis as per the operative report. 2. The small bowel capsule endoscopy done yesterday was inconclusive as the capsule remained in the stomach for the entire study. 3. Metastatic melanoma with brain METS, presently on oral dexamethasone, status post radiation therapy in September of this year. RECOMMENDATION: I had a limited discussion with Dr. Henriquez regarding further management for the patient. Because of episodes of significant rectal bleeding, we decided to proceed with a flexible sigmoidoscopy tomorrow to at least see the source of bleeding and rule out any colitis or other colorectal pathology at the time prior to starting him on anticoagulation before discharging patient home. I discussed these recommendations with the patient and he is agreeable to it. He will be scheduled for a colonoscopy tomorrow and based on that, will decide if he will be started on long-term anticoagulation. The patient is agreeable with the plan. Thank you for this consultation. SARAH / MAIKOL: [id number] /
--- NOTE | 2020-01-15 16:11 | P.PN ---
Subjective Progress Note Date: 01/15/20 Principal diagnosis: Bilateral Pulm Emboli and DVTs No obvious signs of bleeding, hemoglobin is decreased transfusion ordered Objective - Vital Signs Vital signs: Vital Signs Temp 97.5 F L 01/15/20 15:01 Pulse 65 01/15/20 15:01 Resp 14 01/15/20 15:01 BP 133/72 01/15/20 15:01 Pulse Ox 99 01/15/20 12:13 Intake & Output 01/14/20 01/15/20 01/15/20 18:59 06:59 18:59 Intake Total 900 310 Output Total 4 Balance -4 900 310 Weight 106.9 kg Intake: Oral 900 Blood Product 310 Rc As-1 Unit 310 [id number] Output: Stool 4 Other: Voiding Method Toilet Toilet Toilet Urinal Urinal Urinal # Voids 1 1 2 - Exam Gen: Alert and Oriented, NAD Head: NA, AT Ext: BUE adn BLE edema Lungs: Wheezes exp Heart: RRR Abdomen: Soft, ND Psych: Calm Skin: Pale - Labs CBC & Chem 7: 01/15/20 05:20 01/13/20 06:34 Labs: Abnormal Lab Results - Last 24 Hours (Table) 01/15/20 01/15/20 Range/Units 05: 07:30 RBC 2.70 L (4.30-5.90) m/uL Hgb 6.8 L* (13.0-17.5) gm/dL Hct 22.2 L (39.0-53.0) % MCHC 30.8 L (31.0-37.0) g/dL RDW 18.7 H (11.5-15.5) % Lymphocytes # 0.8 L (1.0-4.8) k/uL Crossmatch See Detail Assessment and Plan Plan: Assessment and Recommendations: New Bilateral Pulmonary Emoboli and BLE DVT: - Currently on heparin drip, monitor for 24 hours with recent history of GI bleed and then convert to Eliquis full dose anticoagulation - SVT in upper extremity no evidence of DVT in upper extremities. - Monitor closely bleeding Metastatic Melanoma:Brain - Status Post radiation ending in October - CT scans reveal no new indications of progression, continue on surveillance as outpatient with Dr. Henriqeuz Hyponatremia: - Prob secondary to SIADH from brain mets, have been treated. Normocytic Anemia: - Underlying etiology not completely clear, he has history of GI bleed blood loss anemia. ALthough hemoglobin of 7 on admission, unexplained. - Hemoglobin is holding around 7, despite the positive blood per rectum this am while still on anticoagulation - B12 continued - Transfusion today Ischemic Ulcers versus Colitis: - Await GI input from flex sig GI Bleeding: - Hold AC therapy at this time - Status post IVC filter - Await Flex sig - Pill camera was unsuccessful Physician Attest: I have completed the full history and physical and agree with above dictation by lidia kimble NP. Dictated as a scribe.
[2020-01-15] MEDS: SODIUM FERRIC GLUCONAT-SUCROSE 125 MG in SODIUM CHLORIDE 0.9% 100 ML IVPB SCH (17:17)
[2020-01-15] MEDS ORDERED: MAGNESIUM CITRATE 296 ML BOTTLE PO ONE (19:00)
[2020-01-15 23:40] VITALS: RESP 18
[2020-01-16] MEDS: PANTOPRAZOLE 40 MG TABLET PO SCH (06:23)
[2020-01-16] MEDS ORDERED: NA PHOS,M-B/NA PHOS,DI-BA 133 ML ENEMA RECTAL ONE (06:30)
[2020-01-16 06:44] LABS: Anisocytosis Slight; HCT 26.7 % (39.0-53.0); HGB 8.1 gm/dL (13.0-17.5); Hypochromasia Marked; MCH 25.6 pg (25.0-35.0); MCHC 30.3 g/dL (31.0-37.0); MCV 84.5 fL (80.0-100.0); Mean Platelet Volume 7.2; Platelet Count 167 k/uL (150-450); Poikilocytosis Moderate; RBC 3.16 m/uL (4.30-5.90); RDW 18.9 % (11.5-15.5); WBC 8.1 k/uL (3.8-10.6)
[2020-01-16 06:53] LABS: African American GFR (CKD) >90 (>60 ml/min/1.73 sqM); Anion Gap 4 mmol/L; Blood Urea Nitrogen 14 mg/dL (9-20); Calcium 8.3 mg/dL (8.4-10.2); Carbon Dioxide 26 mmol/L (22-30); Chloride 102 mmol/L (98-107); Glucose 89 mg/dL (74-99); Non-African American GFR(CKD) 90 (>60 ml/min/1.73 sqM); Potassium 3.8 mmol/L (3.5-5.1); Sodium 132 mmol/L (137-145)
[2020-01-16] MEDS ORDERED: PROPOFOL 10 MG/ML 20 ML VIAL IV ONE (07:26)
[2020-01-16] MEDS ORDERED: IV FLUID CONTINUATION 1,000 ML IV ONE (07:26)
--- NOTE | 2020-01-16 07:59 | P.PCN ---
Date of Procedure: 01/16/20 Procedure(s) Performed: BRIEF HISTORY: Patient is a 64-year-old pleasant white male admitted hospital with bilateral lower extremity extensive DVT and was started on anticoagulation. Has severe rectal bleeding documented hemoglobin to 6.8 requiring a blood transfusion. Anticoagulation has been on hold and he underwent Michel filter placement 2 days ago. He had a similar episode of severe GI bleeding in October 2019 at which time an upper endoscopy was unremarkable. He was subsequently transferred to [facility] wedding he had a colonoscopy done within the anastomotic ulcerations. 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 During this hospitalization he did have a small bowel capsule endoscopy done yesterday but that Still remain in the stomach for the entire study. Hence he is scheduled for an colonoscopy to evaluate further evaluate and to identify reason source of bleeding PROCEDURE PERFORMED: Colonoscopy with argon plasma coagulation. PREOPERATIVE DIAGNOSIS:. GI bleed. IV sedation per Anesthesia. PROCEDURE: After informed consent was obtained, the patient, was brought into the endoscopy unit. IV sedation was administered by Anesthesia under continuous monitoring. Digital rectal examination was normal. Initially the Olympus CF-160 flexible video colonoscope was then inserted in the rectum, gradually advanced into the ileocolonic anastomosis which was located at 45 cm from the anal verge. The scope was advanced to at least 40 cm into the distal ileum with a couple of areas with scattered erosions within this area which was biopsied. The liquid anastomosis was located at 45 cm from the anal verge had been superficial erosions circumferentially erythema with very friable mucosa with spontaneous oozing identified. At this time I proceeded with argon plasma coagulation and these areas of spontaneous oozing and friable mucosa with coagulated. The .sigmoid colon, and rectum appeared normal. Retroflexion was performed in the rectum and no lesions were seen. The patient tolerated the procedure well. IMPRESSION: 1.Erythema with superficial erosions and friability of mucosa with spot is bleeding at the liquid anastomosis at 45 cm from the anal verge status post argon plasma coagulation as described above 2.Rectum and sigmoid colon appeared normal no evidence of colitis. 3.Scattered erosions in the terminal ileum status post biopsy RECOMMENDATIONS: Findings of this examination were discussed with the patient . At this time will await the biopsy results. He can be started on anticoagulation cautiously as patient would still be a moderate to high risk for rebleed from the anastomotic area. We discussed his findings with .
[2020-01-16] MEDS: levETIRAcetam 500 MG TAB PO SCH (08:35)
[2020-01-16] MEDS: CYANOCOBALAMIN 1,000 MCG/ML 1 ML VIAL IM SCH (08:35)
[2020-01-16] MEDS: DEXAMETHASONE 4 MG TAB PO SCH (08:35)
--- NOTE | 2020-01-16 09:04 | PCN ---
PROCEDURE NOTE ADDENDUM: DATE OF PROCEDURE: January 11, 2020 PROCEDURE ADDENDUM: Micropuncture guidewire passed and both the renal veins were visualized. MMODL / IJN: [id number] /
--- NOTE | 2020-01-16 09:45 | P.DS ---
Providers Date of admission: 01/11/20 22:09 Expected date of discharge: 01/16/20 Attending physician: Richard Ramos Consults: 01/11/20 22:08 Consult Physician Urgent Consulting Provider: Paxton May Consult Reason/Comments: pe Do you want consulting provider notified?: Yes 01/11/20 22:09 Consult Physician Routine Consulting Provider: Feliz Henriquez Consult Reason/Comments: known Do you want consulting provider notified?: Yes 01/12/20 17:24 Consult Physician Routine Consulting Provider: Shahid Gillis Consult Reason/Comments: IVC filter Do you want consulting provider notified?: Yes 01/13/20 08:24 Consult Physician Routine Consulting Provider: Viviana Nogueira Consult Reason/Comments: GIB Do you want consulting provider notified?: Yes Primary care physician: [facility] Course: This is a 64-year-old male one of Dr. Ramos with a previous medical history significant for melanoma and underwent chemotherapy developed to have a significant ischemic colitis with Clostridium difficile colitis followed by subtotal colectomy with ileostomy placement followed by revision of the ileostomy and was recently diagnosed with metastatic brain lesion for which he underwent radiation therapy that was done by Dr. Jones and completed on October 21. Patient was having outpatient scheduled CAT scan for follow-up ordered by Dr. Henriquez yesterday and found to have no new suspicious mass or adenopathy. Bilateral lower lung pulmonary emboli without evidence of RV strain. Patient was then contacted by Dr. Henriquez and instructed to come into the hospital for evalu ation. In the emergency center, patient was given eliquis 10 mg 1 dose and started on a heparin drip and then admitted to the cardiac stepdown unit. Consults in place with cardiology and oncology. Patient states he has not had any symptoms. No chest pain, shortness of breath. He denies any recent seizure activity. He is currently using a cane only when he was wheelchair bound recently. He states his balance is much improved and around the house he is no longer using a cane. He denies any memory issues. He has not been on any blood thinners recently. patient was hospitalized in October of this year due to acute syncopal episode and acute GI bleed, status post EGD finding gastritis without active upper GI bleed. Patient had significant bleeding and hypotensive requiring vasopressors. He underwent tagged RBC scan that was inconclusive the decision was to transfer the patient to a tertiary care center at [facility] for possible need for immobilization of the bleeder in the small bowel versus of bleeding at the anastomotic area. The patient has not had any further GI bleed but it was reported by his nurse this morning that he had a large amount of blood rectally. Heparin drip was subsequently held and CBC ordered for this afternoon and morning. Await recommendations from oncology regarding anticoagulation. Ultrasound of bilateral lower extremities positive bilaterally for DVT. 01/12: Patient has been restarted on heparin drip last evening. Patient had another bright red blood in the toilet this morning. He has been seen by Dr. Gillis is scheduled for a [place] filter this afternoon. Consult with GI has been added. Upper extremity ultrasound negative for DVT. Echocardiogram reveals EF of 60-65%, moderate concentric left ventricular hypertrophy, mild tricuspid regurgitation, RVSP normal less than 35 mmHg. Right arterial pressure 5 mmHg. Repeat blood work reveals hemoglobin of 7.2. Patient has been afebrile, heart rate 59, blood pressure 130/81, pulse ox 100% on room air. Patient continues to deny any shortness of breath. Patient is also followed by cardiology. 01/13: Patient underwent IVC filter yesterday with Dr. Gillis. Patient is scheduled today for a small bowel capsule study with Dr. Todd. Flex sigmoidoscopy may be necessary but patient has had no further bleeding. He denies any rectal bleeding this morning. Patient is off heparin drip. He states his procedure yesterday went well. He denies having any abdominal pain. Oncology is ordered Ferrlecit for 3 doses. Hemoglobin is 7.9. 01/14: Patient underwent small bowel capsule study which was inconclusive. Patient is now scheduled for colonoscopy tomorrow. Hemoglobin this morning 6.8 and he has been ordered for 1 unit of packed RBCs. Currently on a clear liquid diet. He has had no further bleeding/bloody stools. Cardiology has discontinued aspirin. Patient has been afebrile, heart rate 78, blood pressure 122/71, pulse ox 99% on room air. Patient will be monitored overnight, complete colonoscopy and possible discharge for tomorrow. 01/15: This morning, patient underwent EGD with Dr. Todd that in view of the mucosa with spot bleeding at the anastomosis status post argon plasma coagulation. Rectum and sigmoid colon normal. Scattered erosions of the terminal ileum status post biopsy. Contacted Dr. Henriquez and he proposes no anticoagulation at this point and he will follow up with the patient in about 2 weeks in the office and may start anticoagulation at that time. Patient has not had any further episodes of rectal bleeding or blood. He states with the prep yesterday he did not see any bright red bleeding or black stools. He has not had a bowel movement today. Repeat blood work this morning reveals hemoglobin of 8.1. The patient will be discharged home today in stable condition. Discharge diagnoses: 1. Acute pulmonary embolism and bilateral lower extremity DVT status post IVC filter placement with Dr. Gillis. 2. History of acute GI bleed and acute blood loss anemia in October 2019, transferred [facility]. 3. Acute rectal bleeding, acute blood loss anemia secondary to bleeding at the anastomosis site status post argon plasma coagulation. 4. History of melanoma with metastatic disease post radiation therapy completed in October.. 5. GERD. 6. Hyperlipidemia. 7. BPH. 8. 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 9. COVID-19 not present. Discharge plan: home Impression and plan of care have been directed as dictated by the signing physician. Nai Souza nurse practitioner acting as scribe for signing physician. Patient Condition at Discharge: Good Plan - Discharge Summary Discharge Rx Participant: No New Discharge Prescriptions: Continue Dexamethasone 4 mg PO QAM Pantoprazole Sodium [Protonix] 40 mg PO BID levETIRAcetam 1,000 mg PO BID Dexamethasone 2 mg PO HS Discharge Medication List Dexamethasone 4 mg PO QAM 10/22/19 [History] Pantoprazole Sodium [Protonix] 40 mg PO BID 11/17/19 [History] Dexamethasone 2 mg PO HS 01/11/20 [History] levETIRAcetam 1,000 mg PO BID 01/11/20 [History] Follow up Appointment(s)/Referral(s): Nehemias Farmer MD [STAFF PHYSICIAN] - 3 Weeks (follow up with Dr. Farmer/Leilani Ruiz/Josi Urena in 3 weeks) Feliz Henriquez MD [STAFF PHYSICIAN] - 2 Weeks () Richard Ramos MD [Primary Care Provider] - 1 Week Discharge Disposition: HOME SELF-CARE
[2020-01-16 11:36] VITALS: BP 129/69; PULSE 63; TEMP 96.1
--- NOTE | 2020-01-16 14:01 | P.PN ---
Subjective Progress Note Date: 01/16/20 This is a 64-year-old male patient with history of multiple myeloma who was initially sent over to the hospital by his primary care doctor because of an abnormal CT. The patient has a CT every 6 months for surveillance and on his recent CT was found to have pulmonary embolism. He actually denied having any chest discomfort, shortness of breath, dizziness or syncope. He denies any history of hypertension, no hyperlipidemia or diabetes. The patient is still on IV heparin, he scheduled today to undergo an IVC filter. Blood pressure 130/80 with a heart rate of 60, 100% on room air. White blood cell count 7.8, hemoglobin 7.2, platelet count 168. Sodium 131, potassium 4.4, BUN 20 and creatinine 0.7. 01/14/2020 Patient was seen and examined this morning, he underwent IVC filter placement yesterday with Dr. Gillis. Currently undergoing a small bowel capsule study today with Dr. La Todd. Patient denies any rectal bleeding this morning, he is off of the heparin drip. Denies any abdominal discomfort. We will discontinue his aspirin. Blood pressure 112/60 with a heart rate in the 60s, 97% on room air.White blood cell count 7.9, hemoglobin 7.9, platelet count 194. 01/16/2020 Patient underwent a colonoscopy today which revealed erythema with superficial erosions and friability of mucosa, with spot bleeding at the liquid anastomosis. Rectum and sigmoid colon normal no evidence of colitis. Scattered erosions in the terminal ileum status post biopsy. Recommendation is that the patient can be reinitiated on anticoagulation cautiously as he still we'll continue to be a moderate to high risk for rebleed. Patient overall feels well today. Discharge is already put in for today. Blood pressure 128/60 with a heart rate in the 60s, 100% on room air. White blood cell count 8.1, hemoglobin 8.1, platelet count 167. Sodium 132, potassium 3.8, BUN 14 and creatinine 0.9. Objective - Vital Signs Vital signs: Vital Signs Temp 96.1 F L 01/16/20 11:35 Pulse 63 01/16/20 11:35 Resp 18 01/16/20 11:35 BP 129/69 01/16/20 11:35 Pulse Ox 100 01/16/20 11:35 Intake & Output 05/10/0501/16/20 01/16/20 18:59 06:59 18:59 Intake Total 310 200 Output Total 1 1001 Balance 309 -1001 200 Weight 110.1 kg Intake: IV 200 Blood Product 310 Rc As-1 Unit 310 [id number] Output: Urine 1000 Stool 1 1 Other: Voiding Method Toilet Toilet Urinal Urinal # Voids 2 1 1 # Bowel Movements 1 - Exam Patient is afebrile, pulse in the 60s, respirations 16, blood pressure 112/68, oxygen saturation 97% on room air Lungs are clear to auscultation bilaterally Heart is regular, no murmurs No elevated JVD trace lower extremity edema on the left leg - Labs CBC & Chem 7: 01/16/20 05:57 01/16/20 05:57 Labs: Abnormal Lab Results - Last 24 Hours (Table) 01/15/20 01/16/20 01/16/20 Range/Units 07:30 05:57 05:57 RBC 3.16 L (4.30-5.90) m/uL Hgb 8.1 L (13.0-17.5) gm/dL Hct 26.7 L (39.0-53.0) % MCHC 30.3 L (31.0-37.0) g/dL RDW 18.9 H (11.5-15.5) % Sodium 132 L (137-145) mmol/L Calcium 8.3 L (8.4-10.2) mg/dL Crossmatch See Detail Assessment and Plan Plan: IMPRESSION / ASSESSMENT: #1 Pulmonary embolism #2 Bilateral lower extremity DVTs #3 History of GI bleeding #4 History of multiple myeloma #5 Anemia Plan Patient underwent a colonoscopy today and the final recommendation by GI service was to cautiously reinitiate anticoagulation. Patient has his discharge in, at this time he is not on anticoagulation. He will have a follow-up appointment in the office post discharge. DNP note has been reviewed, I agree with a documented findings and plan of care. Patient was seen and examined.
== END 2020-01-16 12:56 | disposition home or self-care (01) | DRG 252 ==
LOC: EC 19:31 → 3SCARD 22:09
PROVIDERS: ADMIT Internal Medicine Geriatric Medicine; ATTEND Internal Medicine Geriatric Medicine
PROC: B5191ZZ Fluoroscopy of Inferior Vena Cava using Low Osmolar Contrast (ICD-10-PCS; principal; 2020-01-13 09:15)
PROC: 06H03DZ Insertion of Intraluminal Device into Inferior Vena Cava, Percutaneous Approach (ICD-10-PCS; principal; 2020-01-13 09:15)
PROC: 30233N1 Transfusion of Nonautologous Red Blood Cells into Peripheral Vein, Percutaneous Approach (ICD-10-PCS; 2020-01-16)
PROC: 0W3P8ZZ Control Bleeding in Gastrointestinal Tract, Via Natural or Artificial Opening Endoscopic (ICD-10-PCS; 2020-01-16 07:30)
PROC: 0DBB8ZX Excision of Ileum, Via Natural or Artificial Opening Endoscopic, Diagnostic (ICD-10-PCS; 2020-01-16 07:30)
DX: I82.431 Acute embolism and thrombosis of right popliteal vein (principal); I26.99 Other pulmonary embolism without acute cor pulmonale; E22.2 Syndrome of inappropriate secretion of antidiuretic hormone; C79.31 Secondary malignant neoplasm of brain; D62 Acute posthemorrhagic anemia; K91.89 Other postprocedural complications and disorders of digestive system; K62.5 Hemorrhage of anus and rectum; I82.412 Acute embolism and thrombosis of left femoral vein; I82.462 Acute embolism and thrombosis of left calf muscular vein; N40.0 Benign prostatic hyperplasia without lower urinary tract symptoms; Z96.643 Presence of artificial hip joint, bilateral; M19.90 Unspecified osteoarthritis, unspecified site; E78.5 Hyperlipidemia, unspecified; K21.9 Gastro-esophageal reflux disease without esophagitis; D64.9 Anemia, unspecified; I11.9 Hypertensive heart disease without heart failure; C43.9 Malignant melanoma of skin, unspecified; Z20.828 Contact with and (suspected) exposure to other viral communicable diseases; Z96.652 Presence of left artificial knee joint; Z92.3 Personal history of irradiation; Z90.49 Acquired absence of other specified parts of digestive tract; Z87.19 Personal history of other diseases of the digestive system; Z86.73 Personal history of transient ischemic attack (TIA), and cerebral infarction without residual deficits; Z86.718 Personal history of other venous thrombosis and embolism; Z86.711 Personal history of pulmonary embolism; Z85.820 Personal history of malignant melanoma of skin; Z83.0 Family history of human immunodeficiency virus [HIV] disease; Z82.3 Family history of stroke; Z82.0 Family history of epilepsy and other diseases of the nervous system; Z79.899 Other long term (current) drug therapy; Z79.01 Long term (current) use of anticoagulants; Z98.890 Other specified postprocedural states; Z81.8 Family history of other mental and behavioral disorders; Z99.3 Dependence on wheelchair
CPT/HCPCS: 36415; 37191; 45380; 45388; 80048; 80053; 80061; 82607; 82728; 82746; 83540; 83550; 83615; 83735; 83880; 84165; 84484; 85025; 85027; 85045; 85379; 85610; 85730; 86850; 86900; 86901; 86920; 87635; 88305; 91110; 93005; 93306; 93970; 96361; 96365; 96376; 99291

== ENCOUNTER → 2020-01-11 | Outpatient (CLI) | payer OTHER ==
[2020-01-11 09:41] LABS: African American GFR (CKD) >90 (>60 ml/min/1.73 sqM); Blood Urea Nitrogen 23 mg/dL (9-20); Non-African American GFR(CKD) >90 (>60 ml/min/1.73 sqM)
--- NOTE | 2020-01-11 18:24 | CT ---
EXAMINATION TYPE: CT ChestAbdPelvis w con DATE OF EXAM: 01/11/2020 COMPARISON: PET CT October 16, 2019 HISTORY: Melanoma of skin CT DLP: 2113.0 mGycm. Automated Exposure Control for Dose Reduction was Utilized. CONTRAST: CT scan of the thorax, abdomen and pelvis is performed with IV Contrast, patient injected with 100 ml mL of Isovue 300. FINDINGS: LUNGS: Mild anterior bilateral linear scarring. No suspicious nodules or masses. No pleural effusion or pneumothorax seen bilaterally. MEDIASTINUM: There are no greater than 1 cm hilar or mediastinal lymph nodes. No cardiomegaly or pe ricardial effusion is seen. There is hypodensity or thrombus beginning narrow origin of the left low er lobe pulmonary artery axial image 33 and 34 extending into segmental branches. Additional thrombi in the right middle lobar artery axial image 36 and more prominent thrombus right lower lobe beginnin g axial image 34 extending to segmental branches axial image 39 is noted. OTHER: Stable right internal jugular Mediport catheter. LIVER/GB: Simple appearing 1.1 cm thin-walled cyst in the medial segment left hepatic lobe axial imag e 62 redemonstrated. PANCREAS: No significant abnormality is seen. SPLEEN: Posterior calcification spleen axial image 57 presumed benign. ADRENALS: No significant abnormality is seen. KIDNEYS: Thin-walled 2.2 cm cyst mid to lower pole of the right kidney axial image 44 series 5 redemo nstrated. BOWEL: Oral contrast does not reach level of terminal ileum making evaluation of distal bowel slightl y suboptimal. Left-sided colon deviated to the midline with focal fecal prominence anterior pelvis ne ar junction of sigmoid colon axial image 107. Slightly high positioning of the cecum thought present. Surgical changes over overlying the anterior right mid lower abdominal wall noted. GENITAL ORGANS: Suspected upper limits of normal. LYMPH NODES: No greater than 1cm abdominal or pelvic lymph nodes are appreciated. OSSEOUS STRUCTURES: Metallic hardware from bilateral hip arthroplasty causes streak artifact limiting evaluation of pelvic structures. Multilevel spurring in the thoracolumbar spine. Fairly moderate mul tilevel disc space narrowing and vacuum disc phenomenon in the lumbar spine. Facet arthropathy lower lumbar levels. OTHER: Persistent moderate to large sized fat-containing left inguinal hernia. Previously visualized extruded bladder or diverticulum on PET/CT not clearly seen on current study. No definitive new mass or adenopathy identified. IMPRESSION: No new suspicious mass or adenopathy. New bilateral lower lung pulmonary emboli without C T evidence for RV strain. Critical results of new acute pulmonary embolism communicated to ordering oncologist with text messag e and feedback at time of dictation. A Document Only message has been documented for Feliz Henriquez MD~[id number] in the [employer] system on 01/11/2020 6:21 PM, Message ID [id number].
== END | disposition home or self-care (01) ==
LOC: RADCTMAIN 08:55
PROVIDERS: ATTEND Internal Medicine Hematology & Oncology
DX: C43.9 Malignant melanoma of skin, unspecified (principal); I26.99 Other pulmonary embolism without acute cor pulmonale; Z88.6 Allergy status to analgesic agent; Z88.8 Allergy status to other drugs, medicaments and biological substances
CPT/HCPCS: 82565; 84520; 71260; 74177; 36415; Q9967

== ENCOUNTER → 2020-02-12 | Outpatient (CLI) | payer OTHER ==
--- NOTE | 2020-02-12 14:45 | MR ---
EXAMINATION TYPE: MR brain wo/w con DATE OF EXAM: 02/12/2020 COMPARISON: 12/17/2019 and 10/06/2019 HISTORY: 64-year-old male history of melanoma. Follow up Brain Tumors. Recent Radiation treatments. R ight side tremors and weakness TECHNIQUE: Multiplanar, multisequence images of the brain and brainstem were acquired before and aft er administration of 10 mL IV Gadavist. Diffusion weighted imaging is performed. FINDINGS: Multiple lesions are redemonstrated. These are T1 hyperintense with some areas of dark T1 signal like ly hemosiderin and demonstrate heterogeneous avid enhancement. The left lateral frontoparietal T1 bright in heterogeneously enhancing lesion measures 2.0 x 2.0 x 1. 7 cm, axial image 52 and sagittal image 32. (2.0 x 1.7 x 1.6 cm, previously). The left occipital lesion measures 4.2 x 3.3 x 2.7 cm (versus 4.6 x 3.2 x 2.7 cm, previously). The right parietal lesion measures 1.5 cm, unchanged. However, there is enlargement of the previously punctate 3 mm anterior left frontal lesion now measur ing 9 mm and now with surrounding vasogenic edema. There is persistent vasogenic edema involving the 3 other lesions with continued asymmetric mass effe ct onto the left lateral ventricle and 3 mm of rightward midline shift. Asymmetric sulcal effacement on the left. No herniation is identified. Dural venous sinuses are patent. No additional enhancing lesions are identified. No hydrocephalus. Scattered mild mucosal thickening within the paranasal sinuses. Mastoid air cells well pneumatized. T he globes are intact. IMPRESSION: 1. The 3 known intracranial metastases (2 on the left and one on the right) are not significantly lenora nged from 12/17/2019. There is similar continued associated vasogenic edema, asymmetric mass effect on the left, and 3 mm of rightward midline shift. 2. A fourth anterior left frontal parenchymal metastasis has increased in size now measuring 9 mm rach nile 3 mm, previously, and now shows associated vasogenic edema.
== END | disposition home or self-care (01) ==
LOC: RADMRIMAIN 11:48
PROVIDERS: ATTEND Internal Medicine Hematology & Oncology
DX: C79.31 Secondary malignant neoplasm of brain (principal); G93.89 Other specified disorders of brain; C43.9 Malignant melanoma of skin, unspecified
CPT/HCPCS: 70553; A9585

== ENCOUNTER 2020-02-29 11:01 | Emergency (ER) | payer OTHER ==
[2020-02-29 12:02] LABS: ALT 22 U/L (4-49); AST 23 U/L (17-59); African American GFR (CKD) >90 (>60 ml/min/1.73 sqM); Albumin 3.9 g/dL (3.5-5.0); Alkaline Phosphatase 35 U/L (38-126); Anion Gap 7 mmol/L; Blood Urea Nitrogen 20 mg/dL (9-20); Calcium 9.1 mg/dL (8.4-10.2); Carbon Dioxide 24 mmol/L (22-30); Chloride 105 mmol/L (98-107); Glucose 99 mg/dL (74-99); Non-African American GFR(CKD) >90 (>60 ml/min/1.73 sqM); Potassium 4.3 mmol/L (3.5-5.1); Sodium 136 mmol/L (137-145); Total Bilirubin 0.4 mg/dL (0.2-1.3); Total Protein 6.5 g/dL (6.3-8.2)
[2020-02-29 12:10] LABS: Anisocytosis Slight; Basophils % (A) 0 %; Eosinophils % (A) 0 %; HCT 33.7 % (39.0-53.0); HGB 10.7 gm/dL (13.0-17.5); Hypochromasia Slight; Lymphocytes # (A) 1.2 k/uL (1.0-4.8); Lymphocytes % (A) 9 %; MCH 24.8 pg (25.0-35.0); MCHC 31.7 g/dL (31.0-37.0); Mean Platelet Volume 7.3; Microcytosis Slight; Monocytes # (A) 0.7 k/uL (0-1.0); Monocytes % (A) 5 %; Neutrophils # (A) 10.8 k/uL (1.3-7.7); Neutrophils % (A) 84 %; Platelet Count 286 k/uL (150-450); Poikilocytosis Slight; RBC 4.31 m/uL (4.30-5.90); RDW 18.8 % (11.5-15.5); WBC 12.9 k/uL (3.8-10.6)
[2020-02-29 12:12] LABS: MCV 78.3 fL (80.0-100.0)
[2020-02-29 12:13] LABS: INR 0.9 (<1.2); Prothrombin Time 9.7 sec (9.0-12.0)
--- NOTE | 2020-02-29 12:19 | XR ---
EXAMINATION TYPE: XR chest 2V DATE OF EXAM: 02/29/2020 COMPARISON: Chest x-ray November 17, 2019. CT January 11, 2020. HISTORY: History of melanoma with altered mental status and weakness. TECHNIQUE: Frontal and lateral views of the chest are obtained. FINDINGS: Stable right internal jugular Mediport catheter. There is background chronic parenchymal ch yassine without suspicious new focal air space opacity, pleural effusion, or pneumothorax seen. The car diac silhouette size remains enlarged. Multilevel spurring in the spine is redemonstrated. IMPRESSION: Chronic changes and cardiomegaly without acute pulmonary process.
[2020-02-29 12:24] LABS: Partial Thromboplastin Time 19.5 sec (22.0-30.0)
--- NOTE | 2020-02-29 12:29 | CT ---
EXAMINATION TYPE: CT brain wo con DATE OF EXAM: 02/29/2020 COMPARISON: 11/17/2019 HISTORY: 64-year-old male Altered mental status, known brain mets TECHNIQUE: Examination was done in axial plane without intravenous contrast. Coronal and sagittal r econstructions performed. CT DLP: 1082.4 mGycm Automated exposure control for dose reduction was used. FINDINGS: Extensive vasogenic edema redemonstrated along the left frontal parietal junction, left parietal lobe , and extending into the left occipital lobe. There is 6 mm of rightward midline shift as compared to 3 mm on the 02/12/2020 MRI with secondary asym metric flattening of the left lateral ventricle. Vasogenic edema within the anterior left frontal lobe may be slightly increased as compared to the MR I 02/12/2020. Rightward subfalcine herniation is demonstrated. No convincing uncal or downward transtentorial herniation identified at this time. Vasogenic edema within the right parietal lobe is unchanged. No convincing acute intracranial hemorrhage. Paranasal sinuses show trace mucosal thickening in the left maxillary sinus. Mastoid air cells are we ll pneumatized. Orbits and globes are intact. IMPRESSION: 1. Multifocal vasogenic edema from known intracranial metastases. This results in asymmetric flatteni ng of the left lateral ventricle and 6 mm of rightward midline shift as compared to 3 mm on the 2019 MRI. [id number] subfalcine herniation. 2. Vasogenic edema within the anterior left frontal lobe appears increased as compared to 02/12/2020. The other areas of vasogenic edema within the left cerebral hemisphere and in the right parietal lobe appear relatively similar. 3. No uncal/transtentorial herniation or acute intracranial hemorrhage is clearly identified at this time.
[2020-02-29 12:40] VITALS: BP 126/79
[2020-02-29] MEDS ORDERED: DEXAMETHASONE SOD PHOSPHATE 4 MG/ML 1 ML VIAL IV STA (13:54)
--- NOTE | 2020-02-29 13:56 | ED ---
Altered Mental Status HPI - General Chief Complaint: Altered Mental Status Stated Complaint: confusion Time Seen by Provider: 02/29/20 11:20 Source: patient, family, RN notes reviewed Mode of arrival: wheelchair Limitations: no limitations - History of Present Illness Initial Comments: This a 64-year-old male presents emergency Department with for increased confusion, tremoring. Patient has known melanoma with metastases to the brain that does have evidence of vasogenic edema. Patient had MRI 2 weeks ago. Patient has no cough or cold-like symptoms no fevers or chills no nausea vomiting no focal weakness. Patient denies any other specific complaints is concerned because he exhibited some worsening of symptoms this weekend that started on Saturday. - Related Data Home Medications Medication Instructions Recorded Confirmed Dexamethasone 4 mg PO QAM 10/22/19 01/11/20 Pantoprazole Sodium [Protonix] 40 mg PO BID 11/17/19 01/11/20 Dexamethasone 2 mg PO HS 01/11/20 01/11/20 levETIRAcetam 1,000 mg PO BID 01/11/20 01/11/20 Allergies Allergy/AdvReac Type Severity Reaction Status Date / Time No Known Allergies Allergy Verified 02/29/20 11:08 Review of Systems ROS Statement: Those systems with pertinent positive or pertinent negative responses have been documented in the HPI. ROS Other: All systems not noted in ROS Statement are negative. Past Medical History Past Medical History: Cancer, Hypertension, Osteoarthritis (OA) Additional Past Medical History / Comment(s): Melanoma, hx perforated bowel from chemo tx. Tumors to brain currently and is recieving radiation History of Any Multi-Drug Resistant Organisms: None Reported Past Surgical History: Bowel Resection, Hernia Repair, Joint Replacement Additional Past Surgical History / Comment(s): colostomy/later removed, inguinal and incisional hernia repair, left hip replacement, left knee replacement, ANTERIOR TOTAL RIGHT HIP Past Anesthesia/Blood Transfusion Reactions: No Reported Reaction Additional Past Anesthesia/Blood Transfusion Reaction / Comment(s): severe constipation post op Past Psychological History: No Psychological Hx Reported Smoking Status: Never smoker Past Alcohol Use History: None Reported Past Drug Use History: None Reported - Past Family History Mother Family Medical History: Dementia (Mother is 91-year-old with history of vascular dementia.) Additional Family Medical History / Comment(s): Mother is 91-year-old with history of vascular dementia. Father Family Medical History: CVA/TIA (Father at age of 88 from CVA and history of Parkinson disease.) Additional Family Medical History / Comment(s): Father at age of 88 from CVA and history of Parkinson disease. Brother(s) Family Medical History: No Reported History (Patient and 2 brothers one of them in 1989 from AIDS the other one is okay.) Additional Family Medical History / Comment(s): Patient and 2 brothers one of them in 1989 from AIDS the other one is okay. Sister(s) Family Medical History: GI Bleed (Patient had 2 sisters one from colitis at the other one is okay.) Additional Family Medical History / Comment(s): Patient had 2 sisters one from colitis at the other one is okay. Son(s) Family Medical History: No Reported History (Patient has 2 sons no major medical problems.) Additional Family Medical History / Comment(s): Patient has 2 sons no major medical problems. Daughter(s) Family Medical History: No Reported History (One daughter no major medical problems.) Additional Family Medical History / Comment(s): One daughter no major medical problems. General Exam Limitations: no limitations General appearance: alert, in no apparent distress Head exam: Present: atraumatic, normocephalic, normal inspection Eye exam: Present: normal appearance, PERRL, EOMI. Absent: scleral icterus, conjunctival injection, periorbital swelling ENT exam: Present: normal exam, normal oropharynx, mucous membranes moist, TM's normal bilaterally Neck exam: Present: normal inspection, full ROM. Absent: tenderness, meningismus, lymphadenopathy Respiratory exam: Present: normal lung sounds bilaterally. Absent: respiratory distress, wheezes, rales, rhonchi, stridor Cardiovascular Exam: Present: regular rate, normal rhythm, normal heart sounds. Absent: systolic murmur, diastolic murmur, rubs, gallop, clicks GI/Abdominal exam: Present: soft, normal bowel sounds. Absent: distended, tenderness, guarding, rebound, rigid Neurological exam: Present: alert, oriented X3, CN II-XII intact, reflexes normal. Absent: motor sensory deficit Skin exam: Present: warm, dry, intact, normal color. Absent: rash Course Vital Signs 02/29/20 02/29/20 11:05 12:39 Temperature 97.7 F Pulse Rate 70 57 L Respiratory 18 18 Rate Blood Pressure 129/74 126/79 O2 Sat by Pulse 100 Oximetry Medical Decision Making - Medical Decision Making CT reveals increased vasogenic edema compared to MRI. Patient does not have any focal weakness at this time. Patient case discussed with Grace romo for Dr. Henriquez who did recommend patient to be admitted though family feels comfortable going home and increase in steroids. Patient will increase steroids to 4 mg 3 times a day, will be contacted by office in the morning and will have follow-up appointment. - Lab Data Result diagrams: 02/29/20 11:25 02/29/20 11:25 Lab Results 02/29/20 02/29/20 02/29/20 Range/Units 11:25 11:25 11:25 WBC 12.9 H (3.8-10.6) k/uL RBC 4.31 (4.30-5.90) m/uL Hgb 10.7 L (13.0-17.5) gm/dL Hct 33.7 L (39.0-53.0) % MCV 78.3 L D (80.0-100.0) fL MCH 24.8 L (25.0-35.0) pg MCHC 31.7 (31.0-37.0) g/dL RDW 18.8 H (11.5-15.5) % Plt Count 286 (150-450) k/uL Neutrophils % 84 % Lymphocytes % 9 % Monocytes % 5 % Eosinophils % 0 % Basophils % 0 % Neutrophils # 10.8 H (1.3-7.7) k/uL Lymphocytes # 1.2 (1.0-4.8) k/uL Monocytes # 0.7 (0-1.0) k/uL Eosinophils # 0.0 (0-0.7) k/uL Basophils # 0.0 (0-0.2) k/uL Hypochromasia Slight Poikilocytosis Slight Anisocytosis Slight Microcytosis Slight PT 9.7 (9.0-12.0) sec INR 0.9 (<1.2) APTT 19.5 L (22.0-30.0) sec Sodium 136 L (137-145) mmol/L Potassium 4.3 (3.5-5.1) mmol/L Chloride 105 (98-107) mmol/L Carbon Dioxide 24 (22-30) mmol/L Anion Gap 7 mmol/L BUN 20 (9-20) mg/dL Creatinine 0.88 (0.66-1.25) mg/dL Est GFR (CKD-EPI)AfAm >90 (>60 ml/min/1.73 sqM) Est GFR (CKD-EPI)NonAf >90 (>60 ml/min/1.73 sqM) Glucose 99 (74-99) mg/dL Calcium 9.1 (8.4-10.2) mg/dL Total Bilirubin 0.4 (0.2-1.3) mg/dL AST 23 (17-59) U/L ALT 22 (4-49) U/L Alkaline Phosphatase 35 L (38-126) U/L Troponin I (0.000-0.034) ng/mL Total Protein 6.5 (6.3-8.2) g/dL Albumin 3.9 (3.5-5.0) g/dL 02/29/20 Range/Units 11:25 WBC (3.8-10.6) k/uL RBC (4.30-5.90) m/uL Hgb (13.0-17.5) gm/dL Hct (39.0-53.0) % MCV (80.0-100.0) fL MCH (25.0-35.0) pg MCHC (31.0-37.0) g/dL RDW (11.5-15.5) % Plt Count (150-450) k/uL Neutrophils % % Lymphocytes % % Monocytes % % Eosinophils % % Basophils % % Neutrophils # (1.3-7.7) k/uL Lymphocytes # (1.0-4.8) k/uL Monocytes # (0-1.0) k/uL Eosinophils # (0-0.7) k/uL Basophils # (0-0.2) k/uL Hypochromasia Poikilocytosis Anisocytosis Microcytosis PT (9.0-12.0) sec INR (<1.2) APTT (22.0-30.0) sec Sodium (137-145) mmol/L Potassium (3.5-5.1) mmol/L Chloride (98-107) mmol/L Carbon Dioxide (22-30) mmol/L Anion Gap mmol/L BUN (9-20) mg/dL Creatinine (0.66-1.25) mg/dL Est GFR (CKD-EPI)AfAm (>60 ml/min/1.73 sqM) Est GFR (CKD-EPI)NonAf (>60 ml/min/1.73 sqM) Glucose (74-99) mg/dL Calcium (8.4-10.2) mg/dL Total Bilirubin (0.2-1.3) mg/dL AST (17-59) U/L ALT (4-49) U/L Alkaline Phosphatase (38-126) U/L Troponin I <0.012 (0.000-0.034) ng/mL Total Protein (6.3-8.2) g/dL Albumin (3.5-5.0) g/dL Disposition Clinical Impression: Melanoma metastatic to brain, Vasogenic cerebral edema, Confusion Disposition: HOME SELF-CARE Condition: Stable Instructions (If sedation given, give patient instructions): Altered Mental Status (ED) Additional Instructions: Increase steroids to 4 mg 3 times a day.Please return to the Emergency Department if symptoms worsen or any other concerns. Is patient prescribed a controlled substance at d/c from ED?: No Referrals: Richard Ramos MD [Primary Care Provider] - 1-2 days Time of Disposition: 13:55
[2020-02-29 14:34] VITALS: PULSE 60; RESP 17; TEMP 98.2
== END 2020-02-29 14:34 | disposition home or self-care (01) ==
LOC: EC 11:01
DX: C79.31 Secondary malignant neoplasm of brain (principal); C43.9 Malignant melanoma of skin, unspecified; I10 Essential (primary) hypertension; G93.6 Cerebral edema; Z96.642 Presence of left artificial hip joint; Z96.652 Presence of left artificial knee joint; Z82.3 Family history of stroke; Z82.0 Family history of epilepsy and other diseases of the nervous system
CPT/HCPCS: 36415; 80053; 84484; 85025; 85610; 85730; 71046; 70450; 99285; 96374; J1100

== ENCOUNTER 2020-03-03 13:08 | Emergency (ER) | payer OTHER ==
[2020-03-03] MEDS ORDERED: SODIUM CHLORIDE 0.9% 500 ML 500 ML IV STA (13:48)
--- NOTE | 2020-03-03 13:57 | ED ---
General Adult HPI - General Chief complaint: Syncope Stated complaint: Syncope, seizure Time Seen by Provider: 03/03/20 13:10 Source: patient, family, RN notes reviewed, old records reviewed Mode of arrival: wheelchair Limitations: physical limitation - History of Present Illness Initial comments: This is a 64-year-old male who presents emergency Department with a past medical history significant for metastatic melanoma to the brain. Patient does have a history of seizures since this began. Patient was at radiology oncology today when they laid him down to get radiation treatment on a new lesion in his brain and he had a seizure. Patient states he is on Keppra. Patient states he has no complaints currently he feels completely normal. Patient denies headache patient denies any numbness weakness. Patient denies any chest pain difficulty breathing shortest breath per patient denies any recent fever chills. - Related Data Home Medications Medication Instructions Recorded Confirmed Dexamethasone 4 mg PO QAM 10/22/19 01/11/20 Pantoprazole Sodium [Protonix] 40 mg PO BID 11/17/19 01/11/20 Dexamethasone 2 mg PO HS 01/11/20 01/11/20 levETIRAcetam 1,000 mg PO BID 01/11/20 01/11/20 Allergies Allergy/AdvReac Type Severity Reaction Status Date / Time No Known Allergies Allergy Verified 03/03/20 13:15 Review of Systems ROS Statement: Those systems with pertinent positive or pertinent negative responses have been documented in the HPI. ROS Other: All systems not noted in ROS Statement are negative. Past Medical History Past Medical History: Cancer, Hypertension, Osteoarthritis (OA) Additional Past Medical History / Comment(s): Melanoma, hx perforated bowel from chemo tx. Tumors to brain currently and is recieving radiation History of Any Multi-Drug Resistant Organisms: None Reported Past Surgical History: Bowel Resection, Hernia Repair, Joint Replacement Additional Past Surgical History / Comment(s): colostomy/later removed, inguinal and incisional hernia repair, left hip replacement, left knee replacement, ANTERIOR TOTAL RIGHT HIP Past Anesthesia/Blood Transfusion Reactions: No Reported Reaction Additional Past Anesthesia/Blood Transfusion Reaction / Comment(s): severe constipation post op Past Psychological History: No Psychological Hx Reported Smoking Status: Never smoker Past Alcohol Use History: None Reported Past Drug Use History: None Reported - Past Family History Mother Family Medical History: Dementia (Mother is 91-year-old with history of vascular dementia.) Additional Family Medical History / Comment(s): Mother is 91-year-old with history of vascular dementia. Father Family Medical History: CVA/TIA (Father at age of 88 from CVA and history of Parkinson disease.) Additional Family Medical History / Comment(s): Father at age of 88 from CVA and history of Parkinson disease. Brother(s) Family Medical History: No Reported History (Patient and 2 brothers one of them in 1989 from AIDS the other one is okay.) Additional Family Medical History / Comment(s): Patient and 2 brothers one of them in 1989 from AIDS the other one is okay. Sister(s) Family Medical History: GI Bleed (Patient had 2 sisters one from colitis at the other one is okay.) Additional Family Medical History / Comment(s): Patient had 2 sisters one from colitis at the other one is okay. Son(s) Family Medical History: No Reported History (Patient has 2 sons no major medical problems.) Additional Family Medical History / Comment(s): Patient has 2 sons no major med ical problems. Daughter(s) Family Medical History: No Reported History (One daughter no major medical problems.) Additional Family Medical History / Comment(s): One daughter no major medical problems. General Exam - General Exam Comments Initial Comments: GENERAL: Patient is well-developed and well-nourished. Patient is nontoxic and well- hydrated and is in no acute distress. ENT: Neck is soft and supple. No significant lymphadenopathy is noted. Oropharynx is clear. Moist mucous membranes. Neck has full range of motion without eliciting any pain. EYES: The sclera were anicteric and conjunctiva were pink and moist. Extraocular movements were intact and pupils were equal round and reactive to light. Eyelids were unremarkable. PULMONARY: Unlabored respirations. Good breath sounds bilaterally. No audible rales rhonchi or wheezing was noted. CARDIOVASCULAR: There is a regular rate and rhythm without any murmurs gallops or rubs. ABDOMEN: Soft and nontender with normal bowel sounds. No palpable organomegaly was noted. There is no palpable pulsatile mass. SKIN: Skin is clear with no lesions or rashes and otherwise unremarkable. NEUROLOGIC: Patient is alert and oriented x3. Cranial nerves II through XII are grossly intact. Motor and sensory are also intact. Normal speech, volume and content. Symmetrical smile. MUSCULOSKELETAL: Normal extremities with adequate strength and full range of motion. LYMPHATICS: No significant lymphadenopathy is noted PSYCHIATRIC: Normal psychiatric evaluation. Limitations: physical limitation Course Vital Signs 03/03/20 03/03/20 03/03/20 13:12 14:00 14:44 Temperature 97.6 F Pulse Rate 54 L 50 L Respiratory 18 18 51 H Rate Blood Pressure 136/85 143/81 122/66 O2 Sat by Pulse 96 99 99 Oximetry 03/03/20 03/03/20 14:45 15:55 Temperature Pulse Rate 51 L 51 L Respiratory 18 18 Rate Blood Pressure 128/79 O2 Sat by Pulse 99 Oximetry Medical Decision Making - Medical Decision Making EKG shows sinus bradycardia 50 bpm WV interval 234 QRS is 86 Q-T intervals 458 QTC is 417. Patient's EKG shows no ST segment elevation or depression. CT shows the same amount of vasogenic edema but a little decrease in midline shift. I was going to speak with Dr. Delgado but family wanted to go home and follow-up as an outpatient and did not want to wait around for Dr. Henriquez. - Lab Data Result diagrams: 03/03/20 13:57 03/03/20 13:57 Lab Results 03/03/20 03/03/20 03/03/20 Range/Units 13:57 13:57 13:57 WBC 13.2 H (3.8-10.6) k/uL RBC 4.22 L (4.30-5.90) m/uL Hgb 10.3 L (13.0-17.5) gm/dL Hct 33.1 L (39.0-53.0) % MCV 78.5 L (80.0-100.0) fL MCH 24.5 L (25.0-35.0) pg MCHC 31.2 (31.0-37.0) g/dL RDW 18.8 H (11.5-15.5) % Plt Count 301 (150-450) k/uL Neutrophils % 84 % Lymphocytes % 7 % Monocytes % 6 % Eosinophils % 0 % Basophils % 0 % Neutrophils # 11.1 H (1.3-7.7) k/uL Lymphocytes # 1.0 (1.0-4.8) k/uL Monocytes # 0.8 (0-1.0) k/uL Eosinophils # 0.0 (0-0.7) k/uL Basophils # 0.0 (0-0.2) k/uL Hypochromasia Moderate Poikilocytosis Slight Anisocytosis Slight Microcytosis Slight PT 10.4 (9.0-12.0) sec INR 1.0 (<1.2) APTT 18.9 L (22.0-30.0) sec Sodium 134 L (137-145) mmol/L Potassium 4.4 (3.5-5.1) mmol/L Chloride 101 (98-107) mmol/L Carbon Dioxide 25 (22-30) mmol/L Anion Gap 8 mmol/L BUN 24 H (9-20) mg/dL Creatinine 0.90 (0.66-1.25) mg/dL Est GFR (CKD-EPI)AfAm >90 (>60 ml/min/1.73 sqM) Est GFR (CKD-EPI)NonAf 90 (>60 ml/min/1.73 sqM) Glucose 108 H (74-99) mg/dL Calcium 9.3 (8.4-10.2) mg/dL Magnesium 2.2 (1.6-2.3) mg/dL Total Bilirubin 0.3 (0.2-1.3) mg/dL AST 16 L (17-59) U/L ALT 20 (4-49) U/L Alkaline Phosphatase 37 L (38-126) U/L Troponin I (0.000-0.034) ng/mL Total Protein 6.3 (6.3-8.2) g/dL Albumin 3.8 (3.5-5.0) g/dL 03/03/20 Range/Units 13:57 WBC (3.8-10.6) k/uL RBC (4.30-5.90) m/uL Hgb (13.0-17.5) gm/dL Hct (39.0-53.0) % MCV (80.0-100.0) fL MCH (25.0-35.0) pg MCHC (31.0-37.0) g/dL RDW (11.5-15.5) % Plt Count (150-450) k/uL Neutrophils % % Lymphocytes % % Monocytes % % Eosinophils % % Basophils % % Neutrophils # (1.3-7.7) k/uL Lymphocytes # (1.0-4.8) k/uL Monocytes # (0-1.0) k/uL Eosinophils # (0-0.7) k/uL Basophils # (0-0.2) k/uL Hypochromasia Poikilocytosis Anisocytosis Microcytosis PT (9.0-12.0) sec INR (<1.2) APTT (22.0-30.0) sec Sodium (137-145) mmol/L Potassium (3.5-5.1) mmol/L Chloride (98-107) mmol/L Carbon Dioxide (22-30) mmol/L Anion Gap mmol/L BUN (9-20) mg/dL Creatinine (0.66-1.25) mg/dL Est GFR (CKD-EPI)AfAm (>60 ml/min/1.73 sqM) Est GFR (CKD-EPI)NonAf (>60 ml/min/1.73 sqM) Glucose (74-99) mg/dL Calcium (8.4-10.2) mg/dL Magnesium (1.6-2.3) mg/dL Total Bilirubin (0.2-1.3) mg/dL AST (17-59) U/L ALT (4-49) U/L Alkaline Phosphatase (38-126) U/L Troponin I <0.012 (0.000-0.034) ng/mL Total Protein (6.3-8.2) g/dL Albumin (3.5-5.0) g/dL Disposition Clinical Impression: Seizure, Melanoma metastatic to brain Disposition: HOME SELF-CARE Condition: Good Instructions (If sedation given, give patient instructions): Recurrent Seizures in Adults (ED) Is patient prescribed a controlled substance at d/c from ED?: No Referrals: Richard Ramos MD [Primary Care Provider] - 1-2 days Time of Disposition: 16:27
[2020-03-03 14:25] LABS: Anisocytosis Slight; Basophils % (A) 0 %; Eosinophils % (A) 0 %; HCT 33.1 % (39.0-53.0); HGB 10.3 gm/dL (13.0-17.5); Hypochromasia Moderate; Lymphocytes % (A) 7 %; MCH 24.5 pg (25.0-35.0); MCHC 31.2 g/dL (31.0-37.0); MCV 78.5 fL (80.0-100.0); Microcytosis Slight; Monocytes # (A) 0.8 k/uL (0-1.0); Monocytes % (A) 6 %; Neutrophils # (A) 11.1 k/uL (1.3-7.7); Neutrophils % (A) 84 %; Platelet Count 301 k/uL (150-450); Poikilocytosis Slight; RBC 4.22 m/uL (4.30-5.90); RDW 18.8 % (11.5-15.5); WBC 13.2 k/uL (3.8-10.6)
--- NOTE | 2020-03-03 14:29 | CT ---
EXAMINATION TYPE: CT brain wo con DATE OF EXAM: 03/03/2020 COMPARISON: 02/29/2020 HISTORY: 64-year-old male Seizure, syncope TECHNIQUE: Examination was done in axial plane without intravenous contrast. Coronal and sagittal r econstructions performed. CT DLP: 1055.4 mGycm Automated exposure control for dose reduction was used. FINDINGS: Continued multifocal vasogenic edema, fairly extensive of long the left cerebral hemisphere. Continue d asymmetric flattening of the left lateral ventricle and now 4 mm of rightward midline shift versus 6 mm, previously. Similar sulcal effacement throughout the left cerebral hemisphere. No evidence for acute intracranial hemorrhage or extra axial fluid collection. The previously seen beavers bfalcine herniation is not as apparent on the present exam. No hydrocephalus. Paranasal sinuses and mastoid air cells well pneumatized. Orbits and globes appear intact. IMPRESSION: Similar multifocal vasogenic edema from known intracranial metastases resulting in mass effect onto t he left lateral ventricle. There is now 4 mm of rightward midline shift, decreased from 6 mm on the r ecent 02/29/2020 exam. The previously seen subfalcine herniation is not as apparent. No acute intracranial hemorrhage or otherwise acute change from 02/29/2020 is identified.
--- NOTE | 2020-03-03 14:31 | XR ---
EXAMINATION TYPE: XR chest 2V DATE OF EXAM: 03/03/2020 COMPARISON: 02/29/2020 HISTORY: 64-year-old male syncopal episode, chest pain TECHNIQUE: AP and lateral views FINDINGS: Heart borderline to mildly enlarged. Right anterior chest wall injection port with catheter tip at th e upper SVC level. Hazy densities related to overlying soft tissue. No definite consolidation or pleu ral effusion. IMPRESSION: Similar borderline to mild cardiomegaly. No definite acute process allowing for large body habitus an d portable technique.
[2020-03-03 14:34] LABS: ALT 20 U/L (4-49); AST 16 U/L (17-59); African American GFR (CKD) >90 (>60 ml/min/1.73 sqM); Albumin 3.8 g/dL (3.5-5.0); Alkaline Phosphatase 37 U/L (38-126); Anion Gap 8 mmol/L; Blood Urea Nitrogen 24 mg/dL (9-20); Calcium 9.3 mg/dL (8.4-10.2); Carbon Dioxide 25 mmol/L (22-30); Chloride 101 mmol/L (98-107); Glucose 108 mg/dL (74-99); Magnesium 2.2 mg/dL (1.6-2.3); Non-African American GFR(CKD) 90 (>60 ml/min/1.73 sqM); Potassium 4.4 mmol/L (3.5-5.1); Sodium 134 mmol/L (137-145); Total Bilirubin 0.3 mg/dL (0.2-1.3); Total Protein 6.3 g/dL (6.3-8.2)
[2020-03-03 14:51] LABS: Prothrombin Time 10.4 sec (9.0-12.0)
[2020-03-03 14:55] LABS: Partial Thromboplastin Time 18.9 sec (22.0-30.0)
[2020-03-03 15:14] VITALS: RESP 18
[2020-03-03 16:42] VITALS: BP 127/81; PULSE 50; TEMP 97.8
== END 2020-03-03 16:42 | disposition home or self-care (01) ==
LOC: EC 13:08
DX: C79.31 Secondary malignant neoplasm of brain (principal); C43.9 Malignant melanoma of skin, unspecified; R56.9 Unspecified convulsions; R00.1 Bradycardia, unspecified; I10 Essential (primary) hypertension; M19.90 Unspecified osteoarthritis, unspecified site; Z96.652 Presence of left artificial knee joint; Z96.642 Presence of left artificial hip joint
CPT/HCPCS: 36415; 70450; 71046; 80053; 80177; 83735; 84484; 85025; 85610; 85730; 93005; 96360; 96361; 99285

== ENCOUNTER → 2020-04-16 | Outpatient (CLI) | payer OTHER ==
--- NOTE | 2020-04-16 12:18 | CT ---
EXAMINATION TYPE: CT ChestAbdPelvis wo/w con DATE OF EXAM: 04/16/2020 COMPARISON: 01/11/2020 HISTORY: Melanoma. New spot on brain per patient. CT DLP: 4468.6 mGycm CONTRAST: CT scan of the chest, abdomen and pelvis is performed with Oral Contrast and without and with IV Cont rast, patient injected with 100 mL of Isovue 300. CT Chest: LUNGS: There is a new solid pulmonary nodule left lower lobe measuring 1.8 cm in greatest dimension. Smaller new nodules are identified posterior sulcus right lower lobe measuring between 6 and 7 mm eac h totaling 4-5 in number.. MEDIASTINUM: Thoracic aorta is of normal caliber. The heart is not enlarged. No evidence for media stinal mass or adenopathy. Right lower lobe pulmonary embolus persists although is smaller in size re lative to the prior study. No new areas of thrombus noted. HILAR STRUCTURES: No evidence for mass. No hilar adenopathy is appreciated. OTHER: No significant abnormality. CONTRAST CT ABDOMEN AND PELVIS FINDINGS: LIVER/GB: No calcified gallstones. 1.1 cm hepatic cyst medial segment left hepatic lobe. Biliary tr ee is of normal caliber. PANCREAS: No inflammation. No distinct mass. SPLEEN: No splenic enlargement. No lesion seen. ADRENALS: No nodule. No thickening. KIDNEYS/BLADDER: No hydronephrosis. No nephrolithiasis. Stable cyst lower pole right kidney. BOWEL: Normal appendix. Normal bowel caliber. No inflammation. GENITAL ORGANS: No gross abnormality. LYMPH NODES: No greater than 1cm abdominal or pelvic lymph nodes are appreciated. AORTA: No significant abnormality. OSSEOUS STRUCTURES: Degenerative changes lumbar spine. Bilateral hip prostheses noted. OTHER: IVC filter in place. To the right of the umbilicus is a short segment herniated loop of small bowel unchanged from prior study and not resulting in obstruction.. IMPRESSION: 1. New basilar pulmonary nodules as discussed above felt to reflect metastatic disease until proven o therwise. 2. Second order right lower lobe pulmonary arterial branch continues to demonstrate filling defect co mpatible with pulmonary embolism although smaller in size relative to the prior study.
== END | disposition home or self-care (01) ==
LOC: RADCTMAIN 09:34
PROVIDERS: ATTEND Internal Medicine Hematology & Oncology
DX: R91.8 Other nonspecific abnormal finding of lung field (principal); R93.1 Abnormal findings on diagnostic imaging of heart and coronary circulation; C43.9 Malignant melanoma of skin, unspecified; Z88.5 Allergy status to narcotic agent; Z88.8 Allergy status to other drugs, medicaments and biological substances
CPT/HCPCS: 71270; 74178; Q9967 ×2

== ENCOUNTER → 2020-04-27 | Outpatient (CLI) | payer OTHER ==
--- NOTE | 2020-04-27 18:06 | MR ---
EXAMINATION TYPE: MR brain wo/w con DATE OF EXAM: 04/27/2020 COMPARISON: Prior MRI brain February 12, 2020. HISTORY: Metastatic melanoma, F/U comparison to MRI 02-12-20. Gadavist 11.5ml TECHNIQUE: Multiplanar, multisequence images of the brain and brainstem is performed without and with IV contras t, utilizing 11.5 mL intravenous Gadavist . FINDINGS: Redemonstration of multiple intraparenchymal metastatic lesions. 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 Surrounding vasogen ic edema axial image 32 through 36 not significantly changed from prior MRI. Left frontal parietal lesion measures roughly 2.1 x 1.8 x 2.6 cm axial image 52 and coronal image 56 not significant change in size or appearance from most recent MRI. Roughly 1.7 x 1.5 cm superficial right parietal lesion 59 is not significantly changed from most recent prior. Continued interval enlargement of the anterior left frontal lesion measuring 11 x 11 x 9 mm axial roberta ge 59 and coronal image 24. Increasing vasogenic edema also noted. New enhancing 12 x 10 mm lesion near right frontal temporal junction axial image 36 and new enhancing peripheral right inferior parietal 8mm lesion same image. Persistent slight asymmetric left-sided sulcal effacement and subtle right-sided midline shift. Findi ngs stable. No new hydrocephalus. Midline structures demonstrate normal morphology. The craniocervical junction remain within normal l imits. The dural venous sinuses appear patent. The visualized sinuses are clear and the globes are i ntact. IMPRESSION: Findings consistent with interval neoplastic progression as detailed above as there are n ew and enlarging lesions present.
== END | disposition home or self-care (01) ==
LOC: RADMRIMAIN 11:05
PROVIDERS: ATTEND Radiology Radiation Oncology
DX: C79.31 Secondary malignant neoplasm of brain (principal); C43.62 Malignant melanoma of left upper limb, including shoulder; Z92.3 Personal history of irradiation
CPT/HCPCS: 70553; A9585